=== PATIENT | female | born 1970 | race African-American/Black ===

== ENCOUNTER 2020-07-07 12:46 | Emergency (ER) | payer MEDICAID, SELFPAY ==
[2020-07-07 13:45] VITALS: BP 139/77; PULSE 77; RESP 14; TEMP 37.2; O2SAT 99
[2020-07-07 14:01] VITALS: BP 139/77; PULSE 77; RESP 14; TEMP 37.2; O2SAT 99; BMI 54.6
--- NOTE | 2020-07-07 15:13 | CT_ITS ---
EXAMINATION: CT ABDOMEN AND PELVIS WITH CONTRAST CLINICAL INFORMATION: Umbilical hernia. Assess for strangulation. COMPARISON: CT abdomen noncontrast 11/24/2018 TECHNIQUE: Multidetector volumetric images were obtained from the superior aspect of the liver through the pubic symphysis following administration 100 mL of Omnipaque 350 intravenous contrast. Sagittal and coronal reformatted images were obtained on the technologist's workstation. Oral contrast: No This CT examination was performed using dose optimization techniques as appropriate, variously including the following: *Automated exposure control *Adjustment of mA and/or kV according to patient size (this includes techniques or standardized protocols for targeted exams where dose is matched to indication/reason for exam; i.e. extremities or head) *Use of iterative reconstruction technique DLP: 1144 mGy-cm FINDINGS: There is blurring in the upper abdomen from patient respiratory motion artifact. LUNG BASES: The visualized lung bases are unremarkable. LIVER, GALLBLADDER, AND BILIARY TREE: The liver is normal in size, shape, and attenuation. No focal hepatic lesion or biliary ductal dilatation is present. The gallbladder is unremarkable with no evidence of radiopaque gallstones, gallbladder wall thickening, or obvious pericholecystic inflammatory changes. PANCREAS: Unremarkable. SPLEEN: Unremarkable. ADRENAL GLANDS: Unremarkable. KIDNEYS AND URETERS: The kidneys are normal in size, shape, and attenuation. No hydronephrosis, hydroureter, or calculi seen. No perinephric stranding. BLADDER: Unremarkable. GASTROINTESTINAL TRACT: There is no bowel obstruction or inflammatory changes in the bowel or mesentery. The appendix is normal. There is no ascites or fluid collection. No pneumatosis or free air. ABDOMINAL WALL: Fat-containing umbilical hernia. No inguinal hernia. LYMPH NODES: No lymphadenopathy. VASCULAR: Unremarkable. PELVIC VISCERA: There is again a large lobulated uterus containing heterogeneous fibroids, some with scattered calcifications. Overall uterine size is 21.0 x 10.2 x 19.2 cm. Prior axial dimensions 24.8 x 12.7 cm. The left ovary is unremarkable. There is a incidental dominant follicle left ovary 1.6 x 1.1 cm. Right ovary is not seen with certainty. No pelvic ascites. OSSEOUS STRUCTURES: No acute bony abnormality. Multilevel degenerative changes lower thoracic and lumbosacral spine. CT/CT abdomen pelvis w con IMPRESSION: 1. Small fat-containing umbilical hernia under 3 cm. No bowel herniation. 2. No bowel obstruction or inflammatory changes. Normal appendix. 3. Large lobulated uterus containing heterogeneous fibroids 21 x 10 x 19 cm.
[2020-07-07 15:42] LABS: Glucose Urine UA NEG (NEG); Leukocyte Esterase Urine NEG (NEG); Nitrite Urine NEG (NEG); Specific Gravity - Urine 1.025 (1.005-1.025); Urine Blood NEG (NEG); Urine Ketones NEG (NEG); Urine Protein NEG (NEG-TRACE)
[2020-07-07 15:44] LABS: Appearance Urine CLEAR; Color Urine YELLOW; UACC Culture Trigger NO
[2020-07-07 15:45] LABS: Basophils Absolute Auto 0.1 X10*3/uL (0.0-0.2); Basophils Percent Auto 0.6 % (0-2); Eosinophils Absolute Auto 0.3 X10*3/uL (0.0-0.4); Eosinophils Percent Auto 2.8 % (0-4); Hematocrit 39.6 % (37-47); Hemoglobin 12.7 g/dl (12.0-16.0); Imm Gran Abs Auto 0.02 X10*3/uL (0.00-0.03); Imm Gran Pct Auto 0.2 % (0.0-0.4); Lymphocytes Absolute Auto 3.6 X10*3/uL (1.2-4.9); Lymphocytes Percent Auto 33.7 % (20-40); MANUAL DIFF FLAG NO; Mean Corpuscular HGB Conc 32.1 g/dl (31.0-35.0); Mean Corpuscular Hemoglobin 27.9 pg (27.0-33.0); Mean Corpuscular Volume 86.8 fL (80-98); Mean Platelet Volume 10.6 fL (9.4-12.3); Monocytes Absolute Auto 0.6 X10*3/uL (0.1-1.2); Monocytes Percent Auto 5.9 % (2-11); Neutrophils Absolute Auto 6.1 X10*3/uL (2.0-8.3); Neutrophils Percent Auto 56.8 % (45-73); Platelet Count 395 X10*3/uL (160-400); Red Blood Count 4.56 X10*6/uL (4.20-5.50); Red Cell Distribution Width 13.9 % (11.0-16.0); White Blood Count 10.7 X10*3/uL (4.8-10.8)
[2020-07-07 16:00] LABS: Lactic Acid 1.6 mmol/L (0.5-2.0)
[2020-07-07 16:05] LABS: Lipase 16 U/L (8-78)
[2020-07-07 16:06] LABS: Alanine Aminotransferase 14 U/L (0-31); Albumin Level 3.9 g/dL (3.5-5.0); Alkaline Phosphatase 90 U/L (39-117); Anion Gap 13 (12-20); Aspartate Amino Transferase 14 U/L (5-31); Bilirubin Direct < 0.2 mg/dL (0.0-0.5); Bilirubin Total 0.2 mg/dL (0.0-1.0); Blood Urea Nitrogen 17 mg/dL (9-16); Calcium 9.7 mg/dL (8.4-10.2); Carbon Dioxide 33 mmol/L (22-29); Chloride 100 mmol/L (96-108); Creatinine Clr Calc Pharmacy 130.7; Estimated Glomerular Filt Rate > 60; Glucose Random 92 mg/dL (60-115); Potassium 3.1 mmol/l (3.3-5.1); Sodium 143 mmol/L (135-145); Total Protein 7.1 g/dL (6.5-8.0)
[2020-07-07] MEDS: iohexoL 350 MG/ML 100 ML INFUS..BTL IV (16:25)
--- NOTE | 2020-07-07 16:51 | ED_ITS ---
HPI - Abdominal Pain General Chief Complaint: Abdominal Pain Stated Complaint: Pain in Hernia Time Seen by Provider: 07/07/20 15:04 Source: patient Mode of arrival: ambulatory History of Present Illness HPI narrative: 50-year-old female with a past medical history umbilical hernia presenting to ED complaining of abdominal pain at hernia site since yesterday. Reports pain after cleaning bathroom. Admits she is scheduled for hernia surgery on Saturday here at [facility] [place]. Denies associated nausea /vomiting, change in bowel movements, diarrhea/constipation, fever, chills, dysuria /hematuria MD elicited complaint: abdominal pain Related Data Allergies Allergy/AdvReac Type Severity Reaction Status Date / Time No Known Allergies Allergy Unverified 06/02/20 15:57 Review of Systems Review of Systems Constitutional: No Weight loss, No Fever Cardiovascular: No Chest Pain, No SOB Respiratory: No Cough, No Sputum, No Dyspnea Gastrointestinal: No Nausea, No Vomiting, No Diarrhea, No Constipation, +Abdominal pain Genitourinary: No irregular bleeding, No Dysuria, No Urinary Frequency, No Hematuria,No Urinary Flow Changes Musculoskeletal: No joint pain, No Myalgias, No Joint Swelling Skin: No Skin Lesions, No rash Physical Exam Vital Signs: Vital Signs: Vital Signs Temp Pulse Resp BP Pulse Ox 07/07/20 14:01 98.9 F 77 14 139/77 99 07/07/20 13:45 98.9 F 77 14 139/77 99 Body Mass Index 54.6 Const: General: cooperative and healthy appearing Orientation/consciousness: patient oriented x3 Limitations: no limitations HENMT: Head: Yes normal to inspection Ears: hearing grossly normal bilaterally General nose exam: Normal external nose present Face and sinus: Yes normal facial exam Eyes: General: appearance normal, both eyes and all related structures EOM: EOMs intact bilaterally Neck: Neck: Yes normal visual inspection Resp: Effort & Inspection: normal respiratory effort Cardio: Rate: regular rate GI: Inspection: Yes normal to inspection Palpation (GI): Soft to palpation, Tenderness to palpation present (GI) periumbilically, no guarding and Hernia present umbilical (reducible) Skin: Rashes: no rashes Wounds: no wounds Neuro: General: patient oriented x3 Gait exam (Neuro): Normal gait present Extrem: General: Yes normal to inspection Course Course Course Narrative: -5117-- potassium 3.1> p.o. repletion ordered, labs otherwise unremarkable, lactate negative, UA negative -1710-- CT with small fat containing umbilical hernia under 3 cm. No bowel herniation. No bowel obstruction or inflammatory changes. Large lobulated uterus containing fibroids - on re-evaluation patient reports symptomatic improvement after I reduced hernia on exam. labs/imaging results discussed with patient with community center worker including worrisome signs and symptoms and very strict return precautions. Patient verbalized understanding feel safe for discharge home MDM - Abdominal Pain MDM Narrative Medical decision making narrative: 50-year-old female with a past medical history umbilical hernia presenting to ED complaining of abdominal pain at hernia site since yesterday. On exam VS as, NAD/ nontoxic appearing, abdomen soft umbilical hernia appreciated in reducible on exam /painful. Concern for incarcerated / strangulated hernia vs SBO. lower concern for diverticulitis/ appendicitis or other infectious etiology Plan: Labs, UA, CT AP, IVF/reassess Lab Data Result diagrams: 07/07/20 15:38 07/07/20 15:38 Labs: Lab Results 07/07/20 07/07/20 07/07/20 Range/Units 15:30 15:38 15:38 WBC 10.7 (4.8-10.8) X10*3/uL RBC 4.56 (4.20-5.50) X10*6/uL Hgb 12.7 (12.0-16.0) g/dl Hct 39.6 (37-47) % MCV 86.8 (80-98) fL MCH 27.9 (27.0-33.0) pg MCHC 32.1 (31.0-35.0) g/dl RDW 13.9 (11.0-16.0) % Plt Count 395 (160-400) X10*3/uL MPV 10.6 (9.4-12.3) fL Immature Gran % (Auto) 0.2 (0.0-0.4) % Neut % (Auto) 56.8 (45-73) % Lymph % (Auto) 33.7 (20-40) % [place] % (Auto) 5.9 (2-11) % Eos % (Auto) 2.8 (0-4) % Baso % (Auto) 0.6 (0-2) % Lymph # (Auto) 3.6 (1.2-4.9) X10*3/uL [place] # (Auto) 0.6 (0.1-1.2) X10*3/uL Eos # (Auto) 0.3 (0.0-0.4) X10*3/uL Baso # (Auto) 0.1 (0.0-0.2) X10*3/uL Abs Immat Gran (auto) 0.02 (0.00-0.03) X10*3/uL Absolute Neuts (auto) 6.1 (2.0-8.3) X10*3/uL Absolute Nucleated RBC 0.000 (0.0-0.012) X10*3/uL Nucleated RBC % (auto) 0.0 (0.0-0.2) /100WBC Hold Blue Top Sodium 143 (135-145) mmol/L Potassium 3.1 L (3.3-5.1) mmol/l Chloride 100 (96-108) mmol/L Carbon Dioxide 33 H (22-29) mmol/L Anion Gap 13 (12-20) BUN 17 H (9-16) mg/dL Creatinine 0.77 (0.5-1.4) mg/dL Estim Creat Clear Calc 130.7 Estimated GFR > 60 Random Glucose 92 (60-115) mg/dL Lactic Acid (0.5-2.0) mmol/L Calcium 9.7 (8.4-10.2) mg/dL Total Bilirubin 0.2 (0.0-1.0) mg/dL Direct Bilirubin < 0.2 (0.0-0.5) mg/dL AST 14 (5-31) U/L ALT 14 (0-31) U/L Alkaline Phosphatase 90 (39-117) U/L Total Protein 7.1 (6.5-8.0) g/dL Albumin 3.9 (3.5-5.0) g/dL Lipase (8-78) U/L Urine Color YELLOW Urine Appearance CLEAR Urine pH 6.0 (5.0-8.0) Ur Specific [place] 1.025 (1.005-1.025) Urine Protein NEG (NEG-TRACE) MG/DL Urine Glucose (UA) NEG (NEG) MG/DL Urine Ketones NEG (NEG) MG/DL Urine Blood NEG (NEG) Urine Nitrite NEG (NEG) Ur Leukocyte Esterase NEG (NEG) 07/07/20 07/07/20 07/07/20 Range/Units 15:38 15:38 15:38 WBC (4.8-10.8) X10*3/uL RBC (4.20-5.50) X10*6/uL Hgb (12.0-16.0) g/dl Hct (37-47) % MCV (80-98) fL MCH (27.0-33.0) pg MCHC (31.0-35.0) g/dl RDW (11.0-16.0) % Plt Count (160-400) X10*3/uL MPV (9.4-12.3) fL Immature Gran % (Auto) (0.0-0.4) % Neut % (Auto) (45-73) % Lymph % (Auto) (20-40) % [place] % (Auto) (2-11) % Eos % (Auto) (0-4) % Baso % (Auto) (0-2) % Lymph # (Auto) (1.2-4.9) X10*3/uL [place] # (Auto) (0.1-1.2) X10*3/uL Eos # (Auto) (0.0-0.4) X10*3/uL Baso # (Auto) (0.0-0.2) X10*3/uL Abs Immat Gran (auto) (0.00-0.03) X10*3/uL Absolute Neuts (auto) (2.0-8.3) X10*3/uL Absolute Nucleated RBC (0.0-0.012) X10*3/uL Nucleated RBC % (auto) (0.0-0.2) /100WBC Hold Blue Top SEE NOTE Sodium (135-145) mmol/L Potassium (3.3-5.1) mmol/l Chloride (96-108) mmol/L Carbon Dioxide (22-29) mmol/L Anion Gap (12-20) BUN (9-16) mg/dL Creatinine (0.5-1.4) mg/dL Estim Creat Clear Calc Estimated GFR Random Glucose (60-115) mg/dL Lactic Acid 1.6 (0.5-2.0) mmol/L Calcium (8.4-10.2) mg/dL Total Bilirubin (0.0-1.0) mg/dL Direct Bilirubin (0.0-0.5) mg/dL AST (5-31) U/L ALT (0-31) U/L Alkaline Phosphatase (39-117) U/L Total Protein (6.5-8.0) g/dL Albumin (3.5-5.0) g/dL Lipase 16 (8-78) U/L Urine Color Urine Appearance Urine pH (5.0-8.0) Ur Specific [place] (1.005-1.025) Urine Protein (NEG-TRACE) MG/DL Urine Glucose (UA) (NEG) MG/DL Urine Ketones (NEG) MG/DL Urine Blood (NEG) Urine Nitrite (NEG) Ur Leukocyte Esterase (NEG) Discharge Plan Discharge Clinical Impression: Hernia, umbilical Patient Disposition: Home, Self-Care Instructions: Umbilical Hernia (ED) Additional Instructions: Your blood work was reassuring today in the ED Your CT scan showed a fat containing umbilical hernia, no evidence of obstruction. You also have uterine fibroids. Refrain from any heavy lifting or straining If you feel the hernia is painful laid down and tried to push it back in, if your unable to push lump back in, your nausea/vomiting, pain is severe return to the ED immediately Follow up with her appointment on Saturday to have her surgery Referrals: Name,MD Eusebio [Primary Care Provider] - 2 days Print Language: Lithuanian COUNTS INCLUDE 234 BEDS AT THE [facility] Past Medical History Attestation statement: The following information was validated with the patient. Source: nursing notes reviewed Social History Social History Smoking Status: Current some day smoker Advance Directives: Yes Advance Directives Information Provided: No Advance Directives on File: No
[2020-07-07 17:27] VITALS: BP 116/53; PULSE 65; RESP 20; TEMP 36.6; O2SAT 99
== END 2020-07-07 17:40 | disposition home or self-care (01) ==
PROVIDERS: Physician Assistant; Emergency Provider Emergency Medicine; PCP Internal Medicine Geriatric Medicine
DX: K42.9 Umbilical hernia without obstruction or gangrene (principal)
CPT/HCPCS: 36415; 74177; 80048; 80076; 81003; 83605; 83690; 85025; 96361; 96374; 99284

== ENCOUNTER 2020-07-11 06:01 | Day surgery (SDC) | payer MEDICAID, SELFPAY ==
--- NOTE | 2020-07-08 08:29 | HO.ANESPROP2 ---
Documented by User: Ban Hare 07/08/20 08:34 HPI - Anesthesia Eval Consult details Narrative: 50yo F for umbilical hernia repair [facility] Past Medical History Medical History Acid reflux Anxiety Cardiomyopathy CHF (congestive heart failure) Depression Dizziness Heartburn Hernia, umbilical HTN (hypertension) Knee pain Long QT interval Morbid obesity CHACORTA on CPAP Panic attack Social History Social History Smoking Status: Never smoker Use of substances other than those prescribed or required for medical reasons: No Advance Directives: No Advance Directives Information Provided: Yes Advance Directives on File: No Meds Allergies Allergy/AdvReac Type Severity Reaction Status Date / Time No Known Allergies Allergy Unverified 06/02/20 15:57 Home Medications Medication Instructions Recorded Confirmed Type atorvastatin 20 mg PO DAILY 07/08/20 07/08/20 History carvedilol [Coreg] 25 mg PO BID 07/08/20 07/08/20 History clonazepam 0.5 mg PO DAILY 07/08/20 07/08/20 History hydrochlorothiazide 25 mg PO DAILY 07/08/20 07/08/20 History losartan-hydrochlorothiazide 1 tab PO DAILY 07/08/20 07/08/20 History melatonin 20 mg PO DAILY 07/08/20 07/08/20 History omeprazole 20 mg PO BID 07/08/20 07/08/20 History Exam Exam Date and Time: July 08, 2020 0829 Pertinent Lab Results Pertinent Lab Results: Laboratory Tests 07/07/20 07/07/20 15:38 15:38 WBC 10.7 Hgb 12.7 Hct 39.6 Plt Count 395 Sodium 143 Potassium 3.1 L Chloride 100 Carbon Dioxide 33 H BUN 17 H Creatinine 0.77 PO repletion of K+ in ED 07/07/20 Assessment and Plan Assessment Anesthesia Assessment: Chart Reviewed Documented by User: Inocencia Griffin 07/11/20 07:24 [facility] Past Medical History Medical History Acid reflux Anxiety Cardiomyopathy CHF (congestive heart failure) Depression Dizziness Heartburn Hernia, umbilical HTN (hypertension) Knee pain Long QT interval Morbid obesity CHACORTA on CPAP Panic attack Social History Social History Smoking Status: Never smoker Use of substances other than those prescribed or required for medical reasons: No Advance Directives: No Advance Directives Information Provided: Yes Advance Directives on File: No Meds Allergies Allergy/AdvReac Type Severity Reaction Status Date / Time No Known Allergies Allergy Unverified 06/02/20 15:57 Home Medications Medication Instructions Recorded Confirmed Type atorvastatin 20 mg PO DAILY 07/08/20 07/08/20 History carvedilol [Coreg] 25 mg PO BID 07/08/20 07/08/20 History clonazepam 0.5 mg PO DAILY 07/08/20 07/08/20 History hydrochlorothiazide 25 mg PO DAILY 07/08/20 07/08/20 History losartan-hydrochlorothiazide 1 tab PO DAILY 07/08/20 07/08/20 History melatonin 20 mg PO DAILY 07/08/20 07/08/20 History omeprazole 20 mg PO BID 07/08/20 07/08/20 History Exam Airway Mallampati Class: II TM Dist: >3cm Neck ROM: Full Assessment and Plan Assessment Anesthesia Assessment: Anesthesia Plan Discussed and Chart Reviewed Final Anesthetic Review NPO: Yes ASA Class: III Final Preanesthetic Review: No Changes in Pt Med Stat, Meds/Allgs Chart Reviewed, Consent Obtained/Reviewed and Anes Risks/Benef Reviewed Patient Risk: Intermediate Procedure Risk: Low Assessment/Block/Sedation in SS: Assess/Block/Sedation-SS Anesthetic Plan Anesthetic Plan: GA Disposition: Standard PACU
[2020-07-08 15:14] VITALS: BMI 53.8
[2020-07-11 06:31] VITALS: BP 125/60; PULSE 78; RESP 18; TEMP 36.6; O2SAT 99
[2020-07-11 06:43] LABS: UPreg QC Valid YES; Urine Pregnancy NEGATIVE (NEGATIVE)
[2020-07-11] MEDS: ceFAZolin Sodium/Dextrose,Iso 2 GM/50 ML PIGGYBACK IV (06:54)
[2020-07-11] MEDS: Lactated Ringers 1,000 ML 100 ML IVCONT (06:54)
--- NOTE | 2020-07-11 07:27 | MHC.SHP ---
Pre-Procedural Eval Section A The patient is an INPATIENT: No Changes since office visit: Yes Patient answered all questions; No Cold of Flu in the past 2 weeks, No New Medical Problems and No Changes in Medication The History & Physical has been completed within 30 days and I have reviewed it.: Yes Section B Chief Complaint: Umbilical Hernia Allergies: Allergies Allergy/AdvReac Type Severity Reaction Status Date / Time No Known Allergies Allergy Unverified 06/02/20 15:57 Plan Diagnosis/Plan: Unchanged Patient has been examined and remains a candidate for the planned procedure
--- NOTE | 2020-07-11 08:24 | PM.OP ---
Brief Operative Note Date of procedure: 07/11/20 Pre-op diagnosis: Umbilical hernia Post-op diagnosis: same Procedure: Repair of umbilical hernia without mesh Implants: none Surgeon: Daryl Barab MD Anesthesia: MAC Agricultural Appraiser: Aishwarya Shah Estimated blood loss (mL): 10 Pathology: none sent Condition: stable Disposition: PACU
--- NOTE | 2020-07-11 08:29 | P.OP_ITS ---
Operative Note Operative Note Narrative: Date of procedure: 07/11/20 Pre-op diagnosis: Umbilical hernia Post-op diagnosis: same Procedure: Repair of umbilical hernia without mesh Indications for procedure: Patient is a 50-year-old female presenting with a painful lump in the umbilicus and just above the umbilicus. The lump increases in size with lifting and straining and reduces with light pressure. Operative findings: Patient was found to have a hernia located just above the umbilicus measuring approximately 1 cm in diameter. At the patient's request this was repaired without mesh. A 2nd smaller hernia was noted at the umbilicus measuring approximately 0.25 cm also closed primarily without mesh Procedure details patient was brought to the OR and placed in a supine position. After administering general anesthesia the patient's abdomen was prepped with ChloraPrep and draped in a sterile fashion. A surgical time-out was called and the consent confirmed. Patient received preoperative antibiotics and Venodyne boots were in place. Local anesthesia consisting of 1% lidocaine mixed with 0.75% Sensorcaine with epinephrine was infiltrated around the umbilicus. A curvilinear incision was made above the umbilicus oriented transversely. This was carried out through subcutaneous tissue up to the hernia sac. Hernia sac was then sharply dissected from the surrounding subcutaneous tissue. The sac was dissected down to the fascial edge. Sac was reduced and the fascial edges further defined. Dissection was continued down at the umbilicus were a 2nd small umbilical hernia was identified as well. This contained only fatty tissue. The margin this fascia was also identified. Fascial edges were then reapproximated using [id number] 1. Tycron sutures to close both the umbilical and supraumbilical hernia. Hemostasis was assured using electrocautery. Wounds were then irrigated with saline solution and suctioned dry. Dermis was then reapproximated using interrupted 3 0 Polysorb sutures. Skin was closed using a running subcuticular 4 0 Polysorb suture. Steri-Strips 2 x 2 gauze and Tegaderm were then applied. The patient tolerated the procedure well. Sponge instrument needle counts reported as correct. The patient was transferred to PACU in stable condition. Implants: none Surgeon: Daryl Barba MD Anesthesia: MAC Market Asset Protection Manager: Aishwarya Shah Estimated blood loss (mL): 10 Pathology: none sent Condition: stable Disposition: PACU
[2020-07-11 08:33] VITALS: BP 127/68; PULSE 76; RESP 16; TEMP 36.3; O2SAT 97
[2020-07-11 08:48] VITALS: BP 126/80; PULSE 66; RESP 20; TEMP 36.6; O2SAT 99
--- NOTE | 2020-07-11 09:22 | HO.POSTANES ---
Post Anesthesia Evaluation Post Anesthesia Evaluation Vital Signs: Vital Signs Temp Pulse Resp BP Pulse Ox 07/11/20 08:48 98 F 66 20 126/80 99 07/11/20 08:33 97.4 F 76 16 127/68 97 07/11/20 06:31 97.9 F 78 18 125/60 99 Anesthesia: Monitored Mental Status: Awake Pain Control: Satisfactory Nausea/Vomiting: None Hydration: Adequate Anesthesia-Related Issues: No Anes. Related Issues
== END 2020-07-11 10:02 | disposition home or self-care (01) ==
PROVIDERS: Nurse Practitioner; PCP Internal Medicine Geriatric Medicine; Visit Provider Surgery
PROC: 0WQF4ZZ Repair Abdominal Wall, Percutaneous Endoscopic Approach (ICD-10-PCS; CPT 49585; principal; 2020-07-11 07:30)
DX: K42.9 Umbilical hernia without obstruction or gangrene (principal); K21.9 Gastro-esophageal reflux disease without esophagitis; I11.0 Hypertensive heart disease with heart failure; I50.9 Heart failure, unspecified; G47.33 Obstructive sleep apnea (adult) (pediatric); E66.01 Morbid (severe) obesity due to excess calories; Z79.899 Other long term (current) drug therapy
CPT/HCPCS: 49585; 81025; J0690; J1100; J2250; J2405; J3010

== ENCOUNTER → 2020-07-19 10:35 | Outpatient (BNVA) | payer MEDICAID, SELFPAY | PROVIDERS: PCP Internal Medicine Geriatric Medicine; Visit Provider Surgery | DX: Z48.815 Encounter for surgical aftercare following surgery on the digestive system (principal) | CPT/HCPCS: 99212 ==

== ENCOUNTER 2020-09-02 07:24 | Emergency (ER) | payer MEDICAID, SELFPAY ==
[2020-09-02 07:35] VITALS: BP 136/69; PULSE 82; RESP 18; TEMP 36.8; O2SAT 99; BMI 54.1
--- NOTE | 2020-09-02 08:45 | ED.BACK ---
HPI - Back Pain/Injury General Chief Complaint: Back Pain/Injury Stated Complaint: back pain Time Seen by Provider: 09/02/20 08:18 Source: patient Mode of arrival: ambulatory Limitations: no limitations History of Present Illness HPI Narrative: 50-year-old female presenting to the ED with complaints of persistent intermittent left-sided back pain since she was seen here on 07/07/2020 after she was cleaning her house and lifting mattresses. Reports she was sent home with symptomatic treatment which relieved her pain. Denies any other symptoms complaints or concerns at this time. Denies any new injuries. Related Data Home Medications Medication Instructions Recorded Confirmed atorvastatin 20 mg PO DAILY 07/08/20 07/19/20 carvedilol [Coreg] 25 mg PO BID 07/08/20 07/19/20 clonazepam 0.5 mg PO DAILY 07/08/20 07/19/20 hydrochlorothiazide 25 mg PO DAILY 07/08/20 07/19/20 losartan-hydrochlorothiazide 1 tab PO DAILY 07/08/20 07/19/20 melatonin 20 mg PO DAILY 07/08/20 07/19/20 omeprazole 20 mg PO BID 07/08/20 07/19/20 Previous Rx's Medication Instructions Recorded oxycodone 5 mg PO Q6H PRN #20 tab 07/11/20 cyclobenzaprine 10 mg PO TID PRN #10 tab 09/02/20 lidocaine 1 patch TOPICAL DAILY #15 ea 09/02/20 naproxen 500 mg PO BID PRN #10 tab 09/02/20 oxycodone-acetaminophen [Percocet] 1 tab PO Q6H PRN #10 tab 09/02/20 Allergies Allergy/AdvReac Type Severity Reaction Status Date / Time No Known Allergies Allergy Unverified 06/02/20 15:57 Review of Systems Review of Systems: Constitutional : No trauma, No Weight loss, No Fever, No Chills, ENT/Mouth : No Hearing loss, No Ear Pain, No Nasal Congestion, No Sinus Pain, No Hoarseness, No sore throat, No Rhinorrhea, No Swallowing Difficulty Cardiovascular : No Chest Pain, No SOB Respiratory : No Cough, No Dyspnea Gastrointestinal : No Nausea, No Vomiting, No Diarrhea, No abdominal Pain, No Hematochezia, No Melena Genitourinary : No Dysuria, No Urinary Frequency, No Hematuria, No Urinary or Bowel Incontinence/retention Musculoskeletal : + Back pain, No neck pain, No joint stiffness, No joint swelling Skin : No Skin Lesions, No rash or signs of infection Neuro : No Weakness, No radiation, No Numbness, No Paresthesias, No headache, no loss of bowel or bladder incontinence, no saddle anesthesia Denies history of IV drug usage. Yes all other systems are reviewed and are negative PMFSH Past Medical History Attestation statement: The following information was validated with the patient. Medical History Acid reflux Anxiety Cardiomyopathy CHF (congestive heart failure) Depression Dizziness Heartburn Hernia, umbilical HTN (hypertension) Knee pain Long QT interval Morbid obesity CHACORTA on CPAP Panic attack Surgical History H/O ventral hernia repair Social History Social History Alcohol intake: never Smoking Status: Never smoker Smoked in Last 30 Days: No Use of substances other than those prescribed or required for medical reasons: No Advance Directives: No Advance Directives Information Provided: Yes Physical Exam Vital Signs: Vital Signs: Last Vital Signs Temp 98.2 F 09/02/20 07:35 Pulse 82 09/02/20 07:35 Resp 18 09/02/20 07:35 BP 136/69 09/02/20 07:35 Pulse Ox 99 09/02/20 07:35 Body Mass Index 54.1 vital signs have been reviewed as normal and appeared to be correct. Blood pressure normal. Heart rate normal. Respiration rate normal. Temperature normal. Oxygen saturation normal. Appearance: Alert. Oriented X3. No acute distress. Head: Normal external exam. Normocephalic. Atraumatic. No Granados signs noted. No raccoon eyes noted Eyes: PERRLA. EOMI. Conjunctiva and sclera normal. Eyelids normal. ENT: EAC normal. TM's Normal. Pharynx normal. Uvula midline. Moist mucous membranes. No trismus noted. No drooling noted. No muffled voice noted. Neck: Normal inspection. Neck supple. FROM. No adenopathy. Thyroid Normal. No meningeal signs. No neck mass noted. CVS: Normal heart rate and rhythm. Heart sound normal. No murmurs noted. Pulses normal throughout. Respiratory: No respiratory distress. Painless inspiration. Breath sounds normal. No wheezes/rales/rhonchi noted. Chest nontender. No accessory muscle usage noted or decreased air movement noted. Abdomen: Soft and nontender. Bowel sounds normal in all 4 quadrants. No distention noted. No organomegaly noted. No visible injury noted. Back: No CVA tenderness. Full range of motion noted. No obvious deformities, or edema. Mild para-spinal muscular tenderness from lumbar region to coccyx. Full ROM in back and lower extremities. 5/5 strength hip extension/flexion, abduction, adduction. Mild Lumbar pain with hip flexion against resistance. Straight leg raise test negative on right; Straight leg raise test negative on left; Reflexes normal ankle and knee bilaterally; EHL motor strength normal bilaterally Skin: Skin warm and dry. Normal skin color. Normal skin turgor. No rashes/lesions/lacerations noted. Extremities: No lower extremity edema. Extremities exhibit normal range of motion. Extremities nontender. Neuro: Oriented X 3. No motor deficit. No sensory deficit. Reflexes normal. Course Course Course Narrative: Pt c likely muscular pain, but could be herniated disc. Neuro exam shows no deficits. Not c/w AAA/epidural abscess/dissection.No high risk Hx (Incont, fever, immunosupp, recent surgery/LP, coag, signif trauma, wt loss, puls mass, hx/o Ca, TB, or IVDU) to warrant MRI/CT today. Not c/w Pyelo/UTI/kidney stone/spinal fx. Not cauda equina syndrome. Imaging not currently indicated. DC c meds and f/u. MDM - Back Pain/Injury Medical Records Attestation: I reviewed the patient's medical records. Lab Data Attestation: I reviewed the patient's lab results. Discharge Plan Discharge Clinical Impression: Strain of lumbar region Patient Disposition: Home, Self-Care Instructions: Acute Low Back Pain (ED), Lower Back Exercises (ED) Prescriptions: New cyclobenzaprine 10 mg tablet 10 mg PO TID PRN (Reason: muscle spasm) Qty: 10 RF: 0 oxycodone-acetaminophen [Percocet] 5-325 mg tablet 1 tab PO Q6H PRN (Reason: pain) Qty: 10 RF: 0 naproxen 500 mg tablet 500 mg PO BID PRN (Reason: pain) Qty: 10 RF: 0 lidocaine 5 % adhesive patch,medicated 1 patch topical DAILY Qty: 15 RF: 0 No Action carvedilol [Coreg] 25 mg Tablet 25 mg PO BID RF: 0 atorvastatin 20 mg Tablet 20 mg PO DAILY RF: 0 clonazepam 0.5 mg Tablet 0.5 mg PO DAILY RF: 0 losartan-hydrochlorothiazide 100-25 mg Tablet 1 tab PO DAILY RF: 0 omeprazole 20 mg Capsule,Delayed Release(Dr/Ec) 20 mg PO BID RF: 0 hydrochlorothiazide 25 mg Tablet 25 mg PO DAILY RF: 0 melatonin 10 mg Capsule 20 mg PO DAILY RF: 0 oxycodone 5 mg tablet 5 mg PO Q6H PRN (Reason: pain) Qty: 20 RF: 0 Referrals: Name,MD Eusebio [Primary Care Provider] - 2 days Print Language: Congolese
== END 2020-09-02 09:36 | disposition home or self-care (01) ==
PROVIDERS: Emergency Provider Emergency Medicine Emergency Medical Services; PCP Internal Medicine Geriatric Medicine
DX: S39.012A Strain of muscle, fascia and tendon of lower back, initial encounter (principal); X50.0XXA Overexertion from strenuous movement or load, initial encounter; I10 Essential (primary) hypertension; Y93.E9 Activity, other interior property and clothing maintenance; Y92.013 Bedroom of single-family (private) house as the place of occurrence of the external cause; Y99.9 Unspecified external cause status
CPT/HCPCS: 99283

== ENCOUNTER → 2020-09-13 12:39 | Outpatient (BNVA) | payer MEDICAID, SELFPAY | PROVIDERS: PCP Internal Medicine Geriatric Medicine; Visit Provider Surgery | DX: Z09 Encounter for follow-up examination after completed treatment for conditions other than malignant neoplasm (principal); Z87.19 Personal history of other diseases of the digestive system | CPT/HCPCS: 99212 ==

== ENCOUNTER 2020-10-17 06:08 | Outpatient (REF) | payer MEDICAID, SELFPAY ==
[2020-10-17 07:16] LABS: Anion Gap 11 (12-20); Blood Urea Nitrogen 14 mg/dL (9-16); Calcium 8.7 mg/dL (8.4-10.2); Carbon Dioxide 30 mmol/L (22-29); Chloride 102 mmol/L (96-108); Estimated Glomerular Filt Rate > 60; Glucose Fasting 104 mg/dL (60-99); Potassium 3.4 mmol/L (3.3-5.1); Sodium 140 mmol/L (135-145)
[2020-10-17 07:50] LABS: Creatinine Urine 223.45 mg/dL; Microalbum/Creatinine Ratio Ur 58.1 ug/mg cr
== END 2020-10-17 06:09 | disposition home or self-care (01) ==
LOC: HO.LAB 06:08
PROVIDERS: Visit Provider Internal Medicine Geriatric Medicine
DX: I10 Essential (primary) hypertension (principal)
CPT/HCPCS: 36415; 80048; 82043

== ENCOUNTER 2020-11-03 19:06 | Emergency (ER) | payer MEDICAID, SELFPAY ==
[2020-11-03 21:01] VITALS: BP 150/84; PULSE 86; RESP 18; TEMP 36.7; O2SAT 98; BMI 39.4
--- NOTE | 2020-11-03 22:24 | ED_ITS ---
HPI - General Adult General Chief complaint: GI Bleed Stated complaint: Rectal Bleeding Time Seen by Provider: 11/03/20 22:04 Source: patient Mode of arrival: ambulatory Limitations: language barrier (Patient speaks Argentine, I use the hourly sign language interpreter to obtain information from her.) History of Present Illness HPI narrative: 50-year-old female who presents emergency department for evaluation lower GI bleed. The patient states that she has been constipated. She states that yesterday after moving her bowels, she wiped herself with toilet paper and noted a small amount of red blood on the toilet paper. She states that it happened again this morning and this afternoon and this concerned her so she came to the emergency department for evaluation. She states she has been constipated but has been moving her bowels daily. She denied abdominal pain, lightheadedness, dizziness or fatigue. She states that she has never noted blood in the stool but only on the toilet paper. She states this is the 1st epi sode of noting blood per rectum. The patient does have a history of lower back pain and does take naproxen and Flexeril for her pain. She has not had any nausea vomiting diarrhea, bloody stools or dark tarry stools. Related Data Home Medications Medication Instructions Recorded Confirmed atorvastatin 20 mg PO DAILY 07/08/20 07/19/20 carvedilol [Coreg] 25 mg PO BID 07/08/20 07/19/20 clonazepam 0.5 mg PO DAILY 07/08/20 07/19/20 hydrochlorothiazide 25 mg PO DAILY 07/08/20 07/19/20 losartan-hydrochlorothiazide 1 tab PO DAILY 07/08/20 07/19/20 melatonin 20 mg PO DAILY 07/08/20 07/19/20 omeprazole 20 mg PO BID 07/08/20 07/19/20 Previous Rx's Medication Instructions Recorded cyclobenzaprine 10 mg PO TID PRN #10 tab 09/02/20 lidocaine 1 patch TOPICAL DAILY #15 ea 09/02/20 naproxen 500 mg PO BID PRN #10 tab 09/02/20 oxycodone-acetaminophen [Percocet] 1 tab PO Q6H PRN #10 tab 09/02/20 Allergies Allergy/AdvReac Type Severity Reaction Status Date / Time No Known Allergies Allergy Verified 11/03/20 21:01 Review of Systems Review of Systems: Yes all other systems are reviewed and are negative Neurologic: Reports Abnormal speech present [facility] Past Medical History [facility] Narrative: The patient smokes cigarettes daily, she smoked for 22 years, she drinks alcohol very rarely and only on special occasions. She denies drug use. Medical History Acid reflux Anxiety Cardiomyopathy CHF (congestive heart failure) Depression Dizziness Heartburn Hernia, umbilical HTN (hypertension) Knee pain Long QT interval Morbid obesity CHACORTA on CPAP Panic attack Surgical History H/O ventral hernia repair Social History Social History Alcohol intake: never Smoking Status: Never smoker Smoked in Last 30 Days: No Any prior treatment program specific to substance use: No Advance Directives: No Advance Directives Information Provided: No Physical Exam Vital Signs: Vital Signs: Last Vital Signs Temp 97.4 F 11/03/20 23:15 Pulse 80 11/03/20 23:15 Resp 16 11/03/20 23:15 BP 144/78 H 11/03/20 23:15 Pulse Ox 99 11/03/20 23:15 Body Mass Index 39.4 Const: General: other (Very pleasant and cooperative, in no distress) Nutritional Appearance: obese Orientation/consciousness: oriented to person and oriented to place Limitations: no limitations HENMT: Head: Yes normal to inspection, Yes normocephalic and Yes atraumatic Ears: external ears normal General nose exam: Normal external nose present Face and sinus: Yes normal facial exam Mouth: Normal oral and palatal mucosa present Throat: Yes posterior oropharynx normal Eyes: Periorbital: periorbital findings normal Eyelids: Yes eyelids normal Conjunctivae: conjunctivae normal Sclerae: sclerae normal Corneas: corneas normal Pupils: Equal, round and reactive pupils present Direct Ophthalmoscopy: normal light reflex Neck: Neck: Yes full ROM, Yes no lymphadenopathy, Yes no meningeal signs, Yes trachea midline and Yes supple Chest: Chest palpation & inspection: normal inspection of the chest and normal palpation of entire chest wall Resp: Effort & Inspection: normal respiratory effort and able to speak in complete sentences Auscultation: clear to auscultation bilaterally Cardio: Rate: regular rate Rhythm: regular rhythm Heart sounds: S1 normal heart sound present, S2 normal heart sound present and no murmurs GI: Inspection: Yes normal to inspection Palpation (GI): Soft to palpation, nontender, no guarding, not rigid and No hepatosplenomegaly present Rectal Exam - Female: visual inspection normal, normal sphincter tone and heme positive stool (Brown stool, Hemoccult positive) : General: Yes no CVA tenderness Back/Spine/Pelvis: Back: no CVA tenderness Cervical Spine: normal cervical lordosis Thoracic/Lumbar Spine: thoracic and lumbar spine normal to inspection Skin: Lesions: no lesions Rashes: no rashes Wounds: no wounds Neuro: General: oriented to person, oriented to place and no meningeal signs Cranial nerves: Yes Equal, round and reactive pupils present Cognition (Neuro): normal cognition Speech: Abnormal speech present Motor exam (neuro): 5/5 motor strength present throughout Extrem: General: Yes normal to inspection and Yes full ROM Psych: Appearance: well kempt Mental Status: mental status grossly normal Speech and movement: Normal speech and movement present Affect: normal affect Attitude: cooperative Thought process: Normal thought process present Thought content: Normal thought content present Course Course Course Narrative: 50-year-old female who presents emergency department for evaluation of blood on the toilet paper after moving her bowels, since yesterday. The patient's physical examination revealed no abdominal pain. Rectal exam revealed no obvious external hemorrhoids or source of bleeding. The patient's stool was brown but it was Hemoccult positive. I did order laboratory evaluation on this patient. 0005: The patient's laboratory evaluation was unremarkable with a normal H&H 11 and 39.5. The patient's presentation is consistent with a lower GI bleed as discussed above. The patient is constipated as may be contributing to the bleeding. The patient was started on a bowel regimen Metamucil daily, Colace twice a day and Senokot for 3 days if she does not have a bowel movement every 4 days. She was also advised to use preparation H suppositories. She was given verbal and printed instructions and discharged home. Medical Decision Making Lab Data Result diagrams: 11/03/20 22:32 11/03/20 22:32 Labs: Lab Results 11/03/20 11/03/20 Range/Units 22:32 22:32 WBC 13.5 H (4.8-10.8) X10*3/uL RBC 4.72 (4.20-5.50) X10*6/uL Hgb 13.1 (12.0-16.0) g/dl Hct 39.9 (37-47) % MCV 84.5 (80-98) fL MCH 27.8 (27.0-33.0) pg MCHC 32.8 (31.0-35.0) g/dl RDW 13.3 (11.0-16.0) % Plt Count 431 H (160-400) X10*3/uL MPV 10.7 (9.4-12.3) fL Immature Gran % (Auto) 0.4 (0.0-0.4) % Neut % (Auto) 56.3 (45-73) % Lymph % (Auto) 33.0 (20-40) % Hamlin % (Auto) 7.3 (2-11) % Eos % (Auto) 2.4 (0-4) % Baso % (Auto) 0.6 (0-2) % Lymph # (Auto) 4.5 (1.2-4.9) X10*3/uL Hamlin # (Auto) 1.0 (0.1-1.2) X10*3/uL Eos # (Auto) 0.3 (0.0-0.4) X10*3/uL Baso # (Auto) 0.1 (0.0-0.2) X10*3/uL Abs Immat Gran (auto) 0.05 H (0.00-0.03) X10*3/uL Absolute Neuts (auto) 7.6 (2.0-8.3) X10*3/uL Absolute Nucleated RBC 0.000 (0.0-0.012) X10*3/uL Nucleated RBC % (auto) 0.0 (0.0-0.2) /100WBC Sodium 139 (135-145) mmol/L Potassium 3.3 (3.3-5.1) mmol/L Chloride 101 (96-108) mmol/L Carbon Dioxide 29 (22-29) mmol/L Anion Gap 12 (12-20) BUN 18 H (9-16) mg/dL Creatinine 0.74 (0.5-1.4) mg/dL Estim Creat Clear Calc 108.2 Estimated GFR > 60 Random Glucose 110 (60-115) mg/dL Calcium 9.6 D (8.4-10.2) mg/dL Total Bilirubin < 0.2 (0.0-1.0) mg/dL AST 16 (5-31) U/L ALT 12 (0-31) U/L Alkaline Phosphatase 117 D (39-117) U/L Total Protein 7.1 (6.5-8.0) g/dL Albumin 3.9 (3.5-5.0) g/dL Discharge Plan Discharge Clinical Impression: Lower gastrointestinal hemorrhage Constipation Qualifiers: Constipation type: unspecified constipation type Qualified Code(s): K59.00 - Constipation, unspecified Patient Disposition: Home, Self-Care Instructions: Rectal Bleeding (ED) Additional Instructions: Your blood work was normal which is reassuring. Your bleeding could be caused by an internal hemorrhoid or polyp. Your rectal exam did not reveal any external hemorrhoids but your shoulder was positive for blood. Take the following medications for constipation. Metamucil 1 tsp in 8 oz of water daily for 1 month. This is a fiber supplement and will help with your bowel movements. Colace 1 pill twice a day for 1 month. This is a stool softener. If you do not have a good bowel movement every 4 days then take Senokot twice a day for 3 days. Use preparation H suppositories, 1 suppository twice a day and 1 suppository after each bowel movement. Use this for 1 month. Follow-up with your doctor in 2 days. Please return to the emergency department if your symptoms get worse or if you develop any symptoms that are concerning to you. Prescriptions: No Action cyclobenzaprine 10 mg tablet 10 mg PO TID PRN (Reason: muscle spasm) Qty: 10 RF: 0 oxycodone-acetaminophen [Percocet] 5-325 mg tablet 1 tab PO Q6H PRN (Reason: pain) Qty: 10 RF: 0 naproxen 500 mg tablet 500 mg PO BID PRN (Reason: pain) Qty: 10 RF: 0 lidocaine 5 % adhesive patch,medicated 1 patch topical DAILY Qty: 15 RF: 0 carvedilol [Coreg] 25 mg Tablet 25 mg PO BID RF: 0 atorvastatin 20 mg Tablet 20 mg PO DAILY RF: 0 clonazepam 0.5 mg Tablet 0.5 mg PO DAILY RF: 0 losartan-hydrochlorothiazide 100-25 mg Tablet 1 tab PO DAILY RF: 0 omeprazole 20 mg Capsule,Delayed Release(Dr/Ec) 20 mg PO BID RF: 0 hydrochlorothiazide 25 mg Tablet 25 mg PO DAILY RF: 0 melatonin 10 mg Capsule 20 mg PO DAILY RF: 0
[2020-11-03 22:38] LABS: Basophils Absolute Auto 0.1 X10*3/uL (0.0-0.2); Basophils Percent Auto 0.6 % (0-2); Eosinophils Absolute Auto 0.3 X10*3/uL (0.0-0.4); Eosinophils Percent Auto 2.4 % (0-4); Hematocrit 39.9 % (37-47); Hemoglobin 13.1 g/dl (12.0-16.0); Imm Gran Abs Auto 0.05 X10*3/uL (0.00-0.03); Imm Gran Pct Auto 0.4 % (0.0-0.4); Lymphocytes Absolute Auto 4.5 X10*3/uL (1.2-4.9); MANUAL DIFF FLAG NO; Mean Corpuscular HGB Conc 32.8 g/dl (31.0-35.0); Mean Corpuscular Hemoglobin 27.8 pg (27.0-33.0); Mean Corpuscular Volume 84.5 fL (80-98); Mean Platelet Volume 10.7 fL (9.4-12.3); Monocytes Percent Auto 7.3 % (2-11); Neutrophils Absolute Auto 7.6 X10*3/uL (2.0-8.3); Neutrophils Percent Auto 56.3 % (45-73); Platelet Count 431 X10*3/uL (160-400); Red Blood Count 4.72 X10*6/uL (4.20-5.50); Red Cell Distribution Width 13.3 % (11.0-16.0); White Blood Count 13.5 X10*3/uL (4.8-10.8)
[2020-11-03 22:56] LABS: Alanine Aminotransferase 12 U/L (0-31); Albumin Level 3.9 g/dL (3.5-5.0); Alkaline Phosphatase 117 U/L (39-117); Anion Gap 12 (12-20); Aspartate Amino Transferase 16 U/L (5-31); Bilirubin Total < 0.2 mg/dL (0.0-1.0); Blood Urea Nitrogen 18 mg/dL (9-16); Calcium 9.6 mg/dL (8.4-10.2); Carbon Dioxide 29 mmol/L (22-29); Chloride 101 mmol/L (96-108); Creatinine Clr Calc Pharmacy 108.2; Estimated Glomerular Filt Rate > 60; Glucose Random 110 mg/dL (60-115); Potassium 3.3 mmol/L (3.3-5.1); Sodium 139 mmol/L (135-145); Total Protein 7.1 g/dL (6.5-8.0)
[2020-11-03 23:15] VITALS: BP 144/78; PULSE 80; RESP 16; TEMP 36.3; O2SAT 99
== END 2020-11-04 00:48 | disposition home or self-care (01) ==
PROVIDERS: Emergency Provider Emergency Medicine Emergency Medical Services; PCP Internal Medicine Geriatric Medicine
DX: K92.2 Gastrointestinal hemorrhage, unspecified (principal); K59.00 Constipation, unspecified; I11.0 Hypertensive heart disease with heart failure; I50.9 Heart failure, unspecified
CPT/HCPCS: 36415; 80053; 85025; 99283; 99284

== ENCOUNTER 2020-11-22 12:55 | Outpatient (REF) | payer MEDICAID, SELFPAY ==
--- NOTE | ~2020-11-22 | MM_ITS ---
EXAMINATION: MM SCREENING DIGITAL BREAST TOMOSYNTHESIS, BILATERAL CLINICAL INFORMATION: Screening. Asymptomatic. The lifetime risk of breast cancer based on the Tyrer-Cuzick Model is 11.0%. COMPARISON: Mammography: July 27, 2019 and studies dating back to May 31, 2016 TECHNIQUE: Digital breast tomosynthesis is performed in both the craniocaudal and mediolateral oblique views along with computer-aided detection (CAD). Synthesized 2D images are generated from the tomosynthesis. FINDINGS: The breasts are heterogeneously dense, which may obscure small masses (ACR BI-RADS breast composition Category c). There are no significant masses, abnormal calcifications, or other abnormalities. MM/MM tomosynthesis screening BI IMPRESSION: There are no significant changes from prior study. ASSESSMENT: BI-RADS 1: Negative RECOMMENDATION: Routine annual mammography screening. This patient's information was entered into a reminder system with a target due date for their next mammogram.
== END 2020-11-22 12:56 | disposition home or self-care (01) ==
LOC: HO.MAMMO 12:55
PROVIDERS: PCP Internal Medicine Geriatric Medicine; Visit Provider Internal Medicine Geriatric Medicine
DX: Z12.31 Encounter for screening mammogram for malignant neoplasm of breast (principal)
CPT/HCPCS: 77063; 77067

== ENCOUNTER 2021-01-02 07:42 | Outpatient (REF) | payer MEDICAID, SELFPAY ==
[2021-01-02 08:21] LABS: COVID-19 Test Negative (Negative)
== END 2021-01-02 07:43 | disposition home or self-care (01) ==
LOC: HO.LAB 07:42
PROVIDERS: Visit Provider Internal Medicine
DX: Z20.822 Contact with and (suspected) exposure to COVID-19 (principal)
CPT/HCPCS: 36415; 87635; C9803

== ENCOUNTER 2021-02-05 11:38 | Emergency (ER) | payer MEDICAID, SELFPAY ==
[2021-02-05 13:49] VITALS: BP 136/71; PULSE 69; RESP 18; TEMP 37.2; O2SAT 99; BMI 49.9
--- NOTE | 2021-02-05 13:53 | ED_ITS ---
HPI - Wound/Laceration General Chief Complaint: Wound/Laceration Stated Complaint: post surgery incision opened up, pt bleeding Time Seen by Provider: 02/05/21 13:53 Source: patient Mode of arrival: ambulatory Limitations: language barrier History of Present Illness HPI narrative: 50 y/o female with history of recent total abdominal hysterectomy on 01/16 at [facility] presents to the ED with a small portion of her surgical wound that has opened up slightly. She has some increased pain at the site and mild redness. She went for a long walk yesterday but denies lifting or coughing. No fever, chills, N/V or abdominal pain. No drainage from the site. She did not call her surgeon because it was the weekend. Onset (ago): day(s) Location: abdomen Place: home Patient tetanus UTD: Yes Context: accidental Associated symptoms: pain Related Data Previous Rx's Medication Instructions Recorded cephalexin 500 mg PO Q6H 7 Days #28 cap 02/05/21 Allergies Allergy/AdvReac Type Severity Reaction Status Date / Time No Known Allergies Allergy Verified 02/05/21 13:55 Review of Systems Review of Systems: Constitutional: No Fever, No Chills Gastrointestinal: No Nausea, No Vomiting, No Diarrhea, No abdominal Pain Musculoskeletal: No joint pain, No Myalgias Skin: + Skin Lesions, No rash Neuro: No Weakness, No Numbness Heme/Lymph: No Bruising PMFSH Past Medical History Attestation statement: The following information was validated with the patient. Surgical History (Updated 02/05/21 @ 14:00 by CHRISTIAN Parikh) History of hysterectomy Social History Social History Alcohol intake: never Smoking Status: Former smoker Use of substances other than those prescribed or required for medical reasons: No Advance Directives: Yes Advance Directives Information Provided: Yes Advance Directives on File: No Patient : No Physical Exam Vital Signs: Vital Signs: Last Vital Signs Temp 99.0 F 02/05/21 13:49 Pulse 69 02/05/21 13:49 Resp 18 02/05/21 13:49 BP 136/71 02/05/21 13:49 Pulse Ox 99 02/05/21 13:49 Body Mass Index 49.9 Const: General: cooperative, healthy appearing and comfortable Nutritional Appearance: obese HENMT: Head: Yes normal to inspection Ears: hearing grossly normal bilaterally General nose exam: Normal external nose present Face and sinus: Yes normal facial exam Eyes: General: appearance normal, both eyes and all related structures Neck: Neck: Yes normal visual inspection and Yes full ROM Chest: Chest palpation & inspection: normal inspection of the chest Resp: Effort & Inspection: normal respiratory effort and able to speak in complete sentences GI: Inspection: Yes incision (longitudinal surgical scar w/ 2 cm area of dehiscence, no drainage, mass) and Yes obesity Palpation (GI): Soft to palpation and nontender Skin: General skin exam: no rashes or lesions noted Neuro: General: gait normal Extrem: General: Yes normal to inspection Course Course Course Narrative: 50 y/o female presenting with small portion of her hysterectomy surgical wound dehiscence. No palpable abscess or mass. No cellulitis changes, mild redness at the site itself. No suspected hernia. Steri- strips placed on wound after it was irrigated and cleaned, very superficial, does not track down. Will treat for possible evolving cellulitis and have her f/u with her surgeon tomorrow. Patient agrees with plan and given warning signs and symptoms to return. Stable for d/c. Critical Care Time Critical Care Time Critical Care Time: No Discharge Plan Discharge Clinical Impression: Abdominal wound dehiscence Qualifiers: Encounter type: initial encounter Qualified Code(s): T81.30XA - Disruption of wound, unspecified, initial encounter Patient Disposition: Home, Self-Care Instructions: Wound Dehiscence (ED) Additional Instructions: Start taking the prescribed antibiotics are directed. Follow up with your Surgeon at [facility] tomorrow. Keep the steri-strips in place, do not remove. If you have worsening pain or develop drainage, redness, swelling or any other concerning symptom come back to the ER for further evaluation. Prescriptions: New cephalexin 500 mg capsule 500 mg PO Q6H 7 Days Qty: 28 RF: 0 Discharge Date/Time: 02/05/21 14:02 Print Language: [place]
== END 2021-02-05 14:02 | disposition home or self-care (01) ==
PROVIDERS: Emergency Provider Emergency Medicine
DX: L76.82 Other postprocedural complications of skin and subcutaneous tissue (principal); T81.30XA Disruption of wound, unspecified, initial encounter; R10.9 Unspecified abdominal pain; Y76.8 Miscellaneous obstetric and gynecological devices associated with adverse incidents, not elsewhere classified; Y92.239 Unspecified place in hospital as the place of occurrence of the external cause; Z87.891 Personal history of nicotine dependence; Z79.899 Other long term (current) drug therapy
CPT/HCPCS: 99284

== ENCOUNTER 2021-03-04 11:11 | Emergency (ER) | payer MEDICAID, SELFPAY ==
[2021-03-04 11:54] VITALS: BP 146/94; PULSE 84; RESP 18; TEMP 37.2; O2SAT 99; BMI 52.2
--- NOTE | 2021-03-04 12:24 | ED.DIZZY ---
HPI - Dizziness General Chief Complaint: Dizziness Stated Complaint: dizziness Time Seen by Provider: 03/04/21 11:34 Source: patient and dogger Mode of arrival: ambulatory Limitations: no limitations History of Present Illness MD elicited complaint: lightheadedness Onset (ago): week(s) (1) Timing: gradual onset and intermittent Severity: mild Description: lightheadedness Context: change in body position and other (started a diet to lose weight right when this started she has coffee and 2 eggs in the morning, then drinks one bottle of water, then the rest of the day she has lettuce and at night she will have lettuce, tomatoe and plain tuna this is a drastic change from her prior diet) History of similar symptoms: No Exacerbating factors: change in body position Relieving factors: nothing Associated symptoms: denies other symptoms Related Data Home Medications Medication Instructions Recorded Confirmed atorvastatin 20 mg PO DAILY 07/08/20 07/19/20 carvedilol [Coreg] 25 mg PO BID 07/08/20 07/19/20 clonazepam 0.5 mg PO DAILY 07/08/20 07/19/20 hydrochlorothiazide 25 mg PO DAILY 07/08/20 07/19/20 losartan-hydrochlorothiazide 1 tab PO DAILY 07/08/20 07/19/20 melatonin 20 mg PO DAILY 07/08/20 07/19/20 omeprazole 20 mg PO BID 07/08/20 07/19/20 Previous Rx's Medication Instructions Recorded cyclobenzaprine 10 mg PO TID PRN #10 tab 09/02/20 lidocaine 1 patch TOPICAL DAILY #15 ea 09/02/20 naproxen 500 mg PO BID PRN #10 tab 09/02/20 oxycodone-acetaminophen [Percocet] 1 tab PO Q6H PRN #10 tab 09/02/20 Allergies Allergy/AdvReac Type Severity Reaction Status Date / Time No Known Allergies Allergy Verified 11/03/20 21:01 Review of Systems Review of Systems: Constitutional : No Weight loss, No Fever, No Chills, No Fatigue, No Malaise ENT/Mouth : No sore throat, No Rhinorrhea Eyes: No Eye Pain, No Swelling, No Redness Cardiovascular : No Chest Pain, No SOB, No Dyspnea on Exertion, No Orthopnea, No Edema, No Palpitations Respiratory : No Cough, No Sputum, No Wheezing Gastrointestinal : No Nausea, No Vomiting, No Diarrhea, No Constipation, No abdominal Pain, No Hematochezia, No Melena Genitourinary : No Dysuria, No Urinary Frequency, No Hematuria, Musculoskeletal : No joint pain, No Myalgias, No Joint Swelling Skin : No Skin Lesions, No rash Neuro : No Weakness, No Numbness, pos Dizziness, No Headache Psych : No Anxiety/Panic, No Depression Heme/Lymph: No Bruising, No Bleeding,No Lymphadenopathy Endocrine : No Polyuria, No Polydipsia All other systems reviewed and are negative [facility] Past Medical History Attestation statement: The following information was validated with the patient. Medical History Acid reflux Anxiety Cardiomyopathy CHF (congestive heart failure) Depression Dizziness Glaucoma Heartburn Hernia, umbilical HTN (hypertension) Knee pain Long QT interval Morbid obesity CHACORTA on CPAP Panic attack Surgical History H/O ventral hernia repair Social History Social History Alcohol intake: never Patient Tobacco Use Status: Never used Tobacco Advance Directives: Yes Advance Directives Information Provided: Yes Advance Directives on File: No Patient : No Physical Exam Vital Signs: Vital Signs: Last Vital Signs Temp 98.3 F 03/04/21 15:09 Pulse 84 03/04/21 15:09 Resp 18 03/04/21 15:09 BP 151/66 H 03/04/21 15:09 Pulse Ox 100 03/04/21 15:09 Body Mass Index 52.2 Appearance: Alert. Oriented X3. No acute distress. Eyes: Pupils equal, round and reactive to light. ENT: Pharynx normal. Neck: Normal inspection. Neck supple. CVS: Normal heart rate and rhythm. Pulses normal. Respiratory: No respiratory distress. Breath sounds normal. Abdomen: Soft and nontender. Skin: Skin warm and dry. Normal skin color. Normal skin turgor. Extremities: No lower extremity edema. No calf ttp Neuro: Oriented X 3. No motor deficit. No sensory deficit. Course Course Course Narrative: no acute findings, repleted magnesium, she has not been symptomatic here even with brief episode of bigeminy, repeat EKG shows qtc > 500 baseline in EMR 550 - 500 no acute change today, at this time requesting nutrition help will refer to weight loss program here MDM - Dizziness MDM Narrative Medical decision making narrative: 51 yo female with cardiomyopathy, HLD, obesity, GERD, HTN here with ligtheadedness only with standing after starting a very strict limiting diet where she is likely not eating enough please see HPI - no CP/SOB no neuro deficits she is also only taking in about 16 ounces of water a day, labs, EKG, ortho VS ordered, IV magnesium ordered given prolonged qtc Lab Data Result diagrams: 03/04/21 12:52 03/04/21 12:52 Labs: Lab Results 03/04/21 03/04/21 Range/Units 12:52 12:52 WBC 10.6 (4.8-10.8) X10*3/uL RBC 4.28 (4.20-5.50) X10*6/uL Hgb 12.0 (12.0-16.0) g/dl Hct 36.6 L (37-47) % MCV 85.5 (80-98) fL MCH 28.0 (27.0-33.0) pg MCHC 32.8 (31.0-35.0) g/dl RDW 13.5 (11.0-16.0) % Plt Count 373 (160-400) X10*3/uL MPV 10.7 (9.4-12.3) fL Immature Gran % (Auto) 0.3 (0.0-0.4) % Neut % (Auto) 63.0 (45-73) % Lymph % (Auto) 25.3 (20-40) % [place] % (Auto) 7.8 (2-11) % Eos % (Auto) 3.1 (0-4) % Baso % (Auto) 0.5 (0-2) % Lymph # (Auto) 2.7 (1.2-4.9) X10*3/uL [place] # (Auto) 0.8 (0.1-1.2) X10*3/uL Eos # (Auto) 0.3 (0.0-0.4) X10*3/uL Baso # (Auto) 0.1 (0.0-0.2) X10*3/uL Abs Immat Gran (auto) 0.03 (0.00-0.03) X10*3/uL Absolute Neuts (auto) 6.7 (2.0-8.3) X10*3/uL Absolute Nucleated RBC 0.000 (0.0-0.012) X10*3/uL Nucleated RBC % (auto) 0.0 (0.0-0.2) /100WBC Sodium 141 (135-145) mmol/L Potassium 3.9 (3.3-5.1) mmol/L Chloride 100 (96-108) mmol/L Carbon Dioxide 33 H (22-29) mmol/L Anion Gap 12 (12-20) BUN 15 (9-16) mg/dL Creatinine 0.78 (0.5-1.4) mg/dL Estim Creat Clear Calc 124.2 Estimated GFR > 60 Random Glucose 99 (60-115) mg/dL Calcium 10.2 D (8.4-10.2) mg/dL Magnesium 1.7 (1.6-2.6) mg/dL Total Bilirubin < 0.2 (0.0-1.0) mg/dL Direct Bilirubin < 0.2 (0.0-0.5) mg/dL AST 26 D (5-31) U/L ALT 24 (0-31) U/L Alkaline Phosphatase 108 (39-117) U/L Total Protein 7.4 (6.5-8.0) g/dL Albumin 4.1 (3.5-5.0) g/dL ECG Data Attestation: I personally reviewed and interpreted this ECG as follows: ECG interpretation date: 03/04/21 ECG interpretation time: 12:46 Interpretation: Rate: 87 Rhythm: NSR with occ PVCs [place]: normal Normal P waves. 1st degree AVB Normal QRS complex. ST T wave : normal no OZZIE qTC: prolonged prior studies: no acute ischemia but qtc more prolonged from 500 and 1st degree AVB new The study has been interpreted contemporaneously by me. EKG #2 Rate: 89 Rhythm: NSR with PVCs in bigeminy [place]: left Normal P waves. Normal [place]. Normal QRS complex. ST T wave : normal no OZZIE qTC: prolonged prior studies: no acute ischemia The study has been interpreted contemporaneously by me. EKG#3 Rate: 79 Rhythm: NSR [place]: left Normal P waves. Normal SYMONE. Normal QRS complex. ST T wave : normal no OZZIE qTC: prolonged prior studies: no change from priors The study has been interpreted contemporaneously by me. . Discharge Plan Discharge Clinical Impression: Episodic lightheadedness, Hypomagnesemia Patient Disposition: Home, Self-Care Instructions: Lightheadedness (ED), Weight Management (ED) Additional Instructions: return to ED for any worsening symptoms or concerns Prescriptions: No Action cyclobenzaprine 10 mg tablet 10 mg PO TID PRN (Reason: muscle spasm) Qty: 10 RF: 0 oxycodone-acetaminophen [Percocet] 5-325 mg tablet 1 tab PO Q6H PRN (Reason: pain) Qty: 10 RF: 0 naproxen 500 mg tablet 500 mg PO BID PRN (Reason: pain) Qty: 10 RF: 0 lidocaine 5 % adhesive patch,medicated 1 patch topical DAILY Qty: 15 RF: 0 carvedilol [Coreg] 25 mg Tablet 25 mg PO BID RF: 0 atorvastatin 20 mg Tablet 20 mg PO DAILY RF: 0 clonazepam 0.5 mg Tablet 0.5 mg PO DAILY RF: 0 losartan-hydrochlorothiazide 100-25 mg Tablet 1 tab PO DAILY RF: 0 omeprazole 20 mg Capsule,Delayed Release(Dr/Ec) 20 mg PO BID RF: 0 hydrochlorothiazide 25 mg Tablet 25 mg PO DAILY RF: 0 melatonin 10 mg Capsule 20 mg PO DAILY RF: 0 Referrals: Dang Foster PA-C [Physician Value Stream Manager] - [address], LDN [Registered Dietitian] - 2 days Print Language: [place]
--- NOTE | 2021-03-04 12:37 | ECG_ITS ---
Test Reason : DIZZINESS Blood Pressure : / mmHG Vent. Rate : 085 BPM Atrial Rate : 085 BPM P-R Int : 228 ms QRS Dur : 098 ms QT Int : 440 ms P-R-T Axes : 071 -25 057 degrees QTc Int : 523 ms Sinus rhythm with 1st degree A-V block Incomplete right bundle branch block Prolonged QT Abnormal ECG When compared with ECG of 06-JUL-2015 05:18, [place] interval has increased Nonspecific T wave abnormality no longer evident in Anterior leads Referred By: Theresa Trent Electronically Signed By:RENEA CUMMINGS
[2021-03-04 12:57] LABS: MANUAL DIFF FLAG NO
[2021-03-04 12:58] LABS: Basophils Absolute Auto 0.1 X10*3/uL (0.0-0.2); Basophils Percent Auto 0.5 % (0-2); Eosinophils Absolute Auto 0.3 X10*3/uL (0.0-0.4); Eosinophils Percent Auto 3.1 % (0-4); Hematocrit 36.6 % (37-47); Imm Gran Abs Auto 0.03 X10*3/uL (0.00-0.03); Imm Gran Pct Auto 0.3 % (0.0-0.4); Lymphocytes Absolute Auto 2.7 X10*3/uL (1.2-4.9); Lymphocytes Percent Auto 25.3 % (20-40); Mean Corpuscular HGB Conc 32.8 g/dl (31.0-35.0); Mean Corpuscular Volume 85.5 fL (80-98); Mean Platelet Volume 10.7 fL (9.4-12.3); Monocytes Absolute Auto 0.8 X10*3/uL (0.1-1.2); Monocytes Percent Auto 7.8 % (2-11); Neutrophils Absolute Auto 6.7 X10*3/uL (2.0-8.3); Platelet Count 373 X10*3/uL (160-400); Red Blood Count 4.28 X10*6/uL (4.20-5.50); Red Cell Distribution Width 13.5 % (11.0-16.0); White Blood Count 10.6 X10*3/uL (4.8-10.8)
[2021-03-04] MEDS: Magnesium Sulfate/H2O 2 GM/50 ML PIGGYBACK IV (13:09)
--- NOTE | 2021-03-04 13:14 | ECG_ITS ---
Test Reason : REPEAT Blood Pressure : / mmHG Vent. Rate : 079 BPM Atrial Rate : 079 BPM P-R Int : 200 ms QRS Dur : 092 ms QT Int : 482 ms P-R-T Axes : 049 -22 038 degrees QTc Int : 552 ms Normal sinus rhythm Prolonged QT Abnormal ECG When compared with ECG of 04-MAR-2021 14:36, Premature ventricular complexes are no longer Present Referred By: Theresa Trent Electronically Signed By:Edmundo Ram
[2021-03-04 13:55] LABS: Alanine Aminotransferase 24 U/L (0-31); Albumin Level 4.1 g/dL (3.5-5.0); Alkaline Phosphatase 108 U/L (39-117); Anion Gap 12 (12-20); Aspartate Amino Transferase 26 U/L (5-31); Bilirubin Direct < 0.2 mg/dL (0.0-0.5); Bilirubin Total < 0.2 mg/dL (0.0-1.0); Blood Urea Nitrogen 15 mg/dL (9-16); Calcium 10.2 mg/dL (8.4-10.2); Carbon Dioxide 33 mmol/L (22-29); Chloride 100 mmol/L (96-108); Creatinine Clr Calc Pharmacy 124.2; Estimated Glomerular Filt Rate > 60; Glucose Random 99 mg/dL (60-115); Magnesium 1.7 mg/dL (1.6-2.6); Potassium 3.9 mmol/L (3.3-5.1); Sodium 141 mmol/L (135-145); Total Protein 7.4 g/dL (6.5-8.0)
--- NOTE | 2021-03-04 14:31 | ECG_ITS ---
Test Reason : recheck q tc Blood Pressure : / mmHG Vent. Rate : 089 BPM Atrial Rate : 089 BPM P-R Int : 208 ms QRS Dur : 094 ms QT Int : 000 ms P-R-T Axes : 053 -24 056 degrees QTc Int : 000 ms Sinus rhythm with frequent Premature ventricular complexes in a pattern of bigeminy \ Cannot calculate QTc Abnormal ECG When compared with ECG of 04-MAR-2021 12:44, PVCs more frequent Referred By: Theresa Trent Electronically Signed By:RENEA CUMMINGS
[2021-03-04 15:05] VITALS: BP 144/70; PULSE 82
[2021-03-04 15:06] VITALS: BP 152/70; PULSE 97
[2021-03-04 15:08] VITALS: BP 151/66; PULSE 84
[2021-03-04 15:09] VITALS: BP 151/66; PULSE 84; RESP 18; TEMP 36.8; O2SAT 100
--- NOTE | 2021-03-04 15:28 | PC.NURSE ---
PT REPORTS FEELING SIGNIFICANT IMPROVEMENT WITH DIZZINESS. HAS NOW AMBULATED MULTIPLE TIMES TO BATHROOM, STEADILY & INDEPENDENTLY WITH NO ISSUE. FEWER PVCS ON MONITOR NOTED WELL.
== END 2021-03-04 16:20 | disposition home or self-care (01) ==
PROVIDERS: Emergency Provider Emergency Medicine; PCP Internal Medicine Geriatric Medicine
DX: R42 Dizziness and giddiness (principal); E83.42 Hypomagnesemia; I11.0 Hypertensive heart disease with heart failure; I50.9 Heart failure, unspecified; Z79.899 Other long term (current) drug therapy
CPT/HCPCS: 36415; 80048; 80076; 83735; 85025; 93005; 96365; 96366; 99284; 99285; J3475

== ENCOUNTER 2021-05-19 09:22 | Emergency (ER) | payer MEDICAID, SELFPAY ==
[2021-05-19 09:24] VITALS: BP 155/91; PULSE 97; RESP 18; TEMP 36; O2SAT 97; BMI 49.9
--- NOTE | 2021-05-19 09:32 | ED.BACK ---
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 Mode of arrival: ambulatory Limitations: no limitations History of Present Illness MD elicited complaint: back pain and back injury Pertinent past history: prior back pain and recent trauma Onset (ago): day(s) (5) Timing: constant Severity: similar to previous episodes Similar Symptoms Previously: Yes Quality: dull, spasming and throbbing Location: lumbar spine Radiation: left upper leg and right upper leg Exacerbating factors: movement, sitting upright and walking Relieving factors: none Context: while lifting (picked up her brother whom she cares for) Associated symptoms: denies other symptoms Treatments prior to arrival: other medications Work related injury: Yes Related Data Home Medications Medication Instructions Recorded Confirmed atorvastatin 20 mg tablet 20 mg PO DAILY 07/08/20 07/19/20 carvedilol 25 mg tablet (Coreg) 25 mg PO BID 07/08/20 07/19/20 clonazepam 0.5 mg tablet 0.5 mg PO DAILY 07/08/20 07/19/20 hydrochlorothiazide 25 mg tablet 25 mg PO DAILY 07/08/20 07/19/20 losartan 100 1 tab PO DAILY 07/08/20 07/19/20 mg-hydrochlorothiazide 25 mg tablet melatonin 10 mg capsule 20 mg PO DAILY 07/08/20 07/19/20 omeprazole 20 mg capsule,delayed 20 mg PO BID 07/08/20 07/19/20 release Previous Rx's Medication Instructions Recorded cyclobenzaprine 10 mg tablet 10 mg PO TID PRN #10 tab 09/02/20 lidocaine 5 % topical patch 1 patch TOPICAL DAILY #15 ea 09/02/20 naproxen 500 mg tablet 500 mg PO BID PRN #10 tab 09/02/20 oxycodone-acetaminophen 5 mg-325 1 tab PO Q6H PRN #10 tab 09/02/20 mg tablet (Percocet) diazepam 5 mg tablet (Valium) 5 mg PO TID PRN #10 tab 05/19/21 lidocaine 4 % topical patch 1 patch TOPICAL DAILY PRN #10 ea 05/19/21 prednisone 20 mg tablet 40 mg PO DAILY 5 Days #10 tab 05/19/21 Allergies Allergy/AdvReac Type Severity Reaction Status Date / Time No Known Allergies Allergy Verified 02/18/21 21:01 Review of Systems Review of Systems: Constitutional : No Weight loss, No Fever, No Chills, ENT/Mouth : No Hearing loss, No Ear Pain, No Nasal Congestion, No Sinus Pain, No Hoarseness, No sore throat, No Rhinorrhea, No Swallowing Difficulty Cardiovascular : No Chest Pain, No SOB Respiratory : No Cough, No Dyspnea Gastrointestinal : No Nausea, No Vomiting, No Diarrhea, No abdominal Pain, No Hematochezia, No Melena Genitourinary : No Dysuria, No Urinary Frequency, No Hematuria, No Urinary Incontinence, Musculoskeletal : positive back pain Skin : No Skin Lesions, No rash Neuro : No Weakness, No Numbness, No Paresthesias, no loss of bowel or bladder incontinence, no saddle anesthesia [facility] Past Medical History Attestation statement: The following information was validated with the patient. Medical History Acid reflux Anxiety Cardiomyopathy CHF (congestive heart failure) Depression Dizziness Glaucoma Heartburn Hernia, umbilical HTN (hypertension) Knee pain Long QT interval Morbid obesity CHACORTA on CPAP Panic attack Surgical History H/O ventral hernia repair Social History Social History Alcohol intake: never Patient Tobacco Use Status: Never used Tobacco Advance Directives: No Advance Directives Information Provided: No Physical Exam Vital Signs: Vital Signs: Last Vital Signs Temp 96.8 F 05/19/21 09:24 Pulse 97 05/19/21 09:24 Resp 18 05/19/21 09:24 BP 155/91 H 05/19/21 09:24 Pulse Ox 97 05/19/21 09:24 Body Mass Index 49.9 Appearance: Alert. Oriented X3. No acute distress. Eyes: Pupils equal, round and reactive to light. ENT: Pharynx normal. Neck: Normal inspection. Neck supple. CVS: Normal heart rate and rhythm. Pulses normal. Respiratory: No respiratory distress. Breath sounds normal. Abdomen: Soft and nontender. Back: ttp along lower lumbar paraspinals muscles Skin: Skin warm and dry. Normal skin color. Normal skin turgor. Extremities: No lower extremity edema. No calf ttp Neuro: Oriented X 3. No motor deficit. No sensory deficit. SILT inner thigh, distal NV intact L5/5 bilaterally MDM - Back Pain/Injury MDM Narrative Medical decision making narrative: 51 yo female with hx of back pain, GERD, HLD here with low back pain for the past 5 days after lifting her brother whom she cares for - denies b/b incontinence, no saddle anesthesia, no IVDA, no abdominal pain, NV intact, no CE symptoms - hx of same in past, reports flexeril is not working - at this time will refer to PCP and start on oral pain medications, MSK strain suspected no GI or symptoms Discharge Plan Discharge Clinical Impression: Strain of lumbar region Patient Disposition: Home, Self-Care Instructions: Low Back Strain (ED), Lower Back Exercises (ED) Additional Instructions: return to ED for any worsening symptoms or concerns Prescriptions: New lidocaine 4 % adhesive patch,medicated 1 patch topical DAILY PRN (Reason: pain) Qty: 10 RF: 0 prednisone 20 mg tablet 40 mg PO DAILY 5 Days Qty: 10 RF: 0 diazepam [Valium] 5 mg tablet 5 mg PO TID PRN (Reason: muscle spasm) Qty: 10 RF: 0 No Action cyclobenzaprine 10 mg tablet 10 mg PO TID PRN (Reason: muscle spasm) Qty: 10 RF: 0 oxycodone-acetaminophen [Percocet] 5-325 mg tablet 1 tab PO Q6H PRN (Reason: pain) Qty: 10 RF: 0 naproxen 500 mg tablet 500 mg PO BID PRN (Reason: pain) Qty: 10 RF: 0 lidocaine 5 % adhesive patch,medicated 1 patch topical DAILY Qty: 15 RF: 0 carvedilol [Coreg] 25 mg Tablet 25 mg PO BID RF: 0 atorvastatin 20 mg Tablet 20 mg PO DAILY RF: 0 clonazepam 0.5 mg Tablet 0.5 mg PO DAILY RF: 0 losartan-hydrochlorothiazide 100-25 mg Tablet 1 tab PO DAILY RF: 0 omeprazole 20 mg Capsule,Delayed Release(Dr/Ec) 20 mg PO BID RF: 0 hydrochlorothiazide 25 mg Tablet 25 mg PO DAILY RF: 0 melatonin 10 mg Capsule 20 mg PO DAILY RF: 0 Referrals: Name,MD Eusebio [Primary Care Provider] - 5 days Print Language: Urdu
== END 2021-05-19 10:13 | disposition home or self-care (01) ==
PROVIDERS: Emergency Provider Emergency Medicine; PCP Internal Medicine Geriatric Medicine
DX: S39.012A Strain of muscle, fascia and tendon of lower back, initial encounter (principal); X50.0XXA Overexertion from strenuous movement or load, initial encounter; Y93.9 Activity, unspecified; Y92.9 Unspecified place or not applicable; Y99.9 Unspecified external cause status; Z79.899 Other long term (current) drug therapy
CPT/HCPCS: 99283

== ENCOUNTER 2021-07-26 14:00 | Outpatient (RCR) | payer MEDICAID, SELFPAY | END 2021-09-12 13:52 | disposition home or self-care (01) | LOC: HO.PT 14:00 | PROVIDERS: PCP Internal Medicine Geriatric Medicine; Visit Provider Internal Medicine Geriatric Medicine | DX: M54.50 Low back pain, unspecified (principal) | CPT/HCPCS: 97110; 97161; 97530 ==

== ENCOUNTER 2021-08-14 05:51 | Outpatient (REF) | payer MEDICAID, SELFPAY ==
[2021-08-14 07:12] LABS: Hemoglobin 12.3 g/dl (12.0-16.0); Mean Corpuscular HGB Conc 31.5 g/dl (31.0-35.0); Mean Corpuscular Hemoglobin 27.8 pg (27.0-33.0); Mean Platelet Volume 11.3 fL (9.4-12.3); Platelet Count 368 X10*3/uL (160-400); Red Blood Count 4.43 X10*6/uL (4.20-5.50); Red Cell Distribution Width 13.5 % (11.0-16.0); White Blood Count 11.7 X10*3/uL (4.8-10.8)
[2021-08-14 07:35] LABS: Alanine Aminotransferase 15 U/L (0-31); Albumin Level 3.7 g/dL (3.5-5.0); Alkaline Phosphatase 96 U/L (39-117); Anion Gap 13 (12-20); Aspartate Amino Transferase 14 U/L (5-31); Bilirubin Direct < 0.2 mg/dL (0.0-0.5); Bilirubin Total 0.2 mg/dL (0.0-1.0); Blood Urea Nitrogen 18 mg/dL (9-16); Calcium 10.1 mg/dL (8.4-10.2); Carbon Dioxide 33 mmol/L (22-29); Chloride 97 mmol/L (96-108); Cholesterol 151 mg/dL; Estimated Glomerular Filt Rate > 60; Glucose Random 119 mg/dL (60-115); HDL Cholesterol 35 mg/dL; LDL Cholesterol Calculated 85 mg/dl; Potassium 3.5 mmol/L (3.3-5.1); Sodium 139 mmol/L (135-145); Total Protein 6.9 g/dL (6.5-8.0); Triglycerides 155 mg/dL
[2021-08-14 07:58] LABS: TSH reflex Free T4 1.43 uIU/mL (0.32-4.0)
[2021-08-14 08:03] LABS: Estimated Average Glucose 120 mg/dL; Hemoglobin A1c % 5.8 %
== END 2021-08-14 05:52 | disposition home or self-care (01) ==
LOC: HO.LAB 05:51
PROVIDERS: PCP Internal Medicine Geriatric Medicine; Visit Provider Internal Medicine Geriatric Medicine
DX: E66.01 Morbid (severe) obesity due to excess calories (principal); G47.33 Obstructive sleep apnea (adult) (pediatric); G89.29 Other chronic pain; I10 Essential (primary) hypertension; I42.9 Cardiomyopathy, unspecified; M54.50 Low back pain, unspecified
CPT/HCPCS: 36415; 80048; 80061; 80076; 83036; 84443; 85027

== ENCOUNTER → 2021-11-28 12:59 | Outpatient (BNVA) | payer MEDICAID, SELFPAY | PROVIDERS: PCP Internal Medicine Geriatric Medicine; Referring Provider Internal Medicine Geriatric Medicine; Visit Provider Nurse Practitioner Family | DX: K59.01 Slow transit constipation (principal) | CPT/HCPCS: 99202 ==

== ENCOUNTER 2021-12-01 12:36 | Outpatient (REF) | payer MEDICAID, SELFPAY ==
--- NOTE | ~2021-12-01 | MM_ITS ---
EXAMINATION: MM SCREENING DIGITAL BREAST TOMOSYNTHESIS, BILATERAL CLINICAL INFORMATION: Screening. Asymptomatic. The lifetime risk of breast cancer based on the Tyrer-Cuzick Model is 12.0%. COMPARISON: Mammography: November 22, 2020 and studies dating back to May 11, 2013 TECHNIQUE: Digital breast tomosynthesis is performed in both the craniocaudal and mediolateral oblique views along with computer-aided detection (CAD). Synthesized 2D images are generated from the tomosynthesis. FINDINGS: The breasts are heterogeneously dense, which may obscure small masses (ACR BI-RADS breast composition Category c). There are no significant masses, abnormal calcifications, or other abnormalities. MM/MM tomosynthesis screening BI IMPRESSION: There are no significant changes from prior study. ASSESSMENT: BI-RADS 1: Negative RECOMMENDATION: Routine annual mammography screening. This patient's information was entered into a reminder system with a target due date for their next mammogram.
== END 2021-12-01 12:37 | disposition home or self-care (01) ==
LOC: HO.MAMMO 12:36
PROVIDERS: PCP Internal Medicine Geriatric Medicine; Visit Provider Internal Medicine Geriatric Medicine
DX: Z12.31 Encounter for screening mammogram for malignant neoplasm of breast (principal)
CPT/HCPCS: 77063; 77067

== ENCOUNTER → 2021-12-21 10:30 | Outpatient (BNVA) | payer MEDICAID, SELFPAY | PROVIDERS: PCP Internal Medicine Geriatric Medicine; Visit Provider Nurse Practitioner Family | DX: M47.817 Spondylosis without myelopathy or radiculopathy, lumbosacral region (principal); M25.551 Pain in right hip; M53.3 Sacrococcygeal disorders, not elsewhere classified | CPT/HCPCS: 99202 ==

== ENCOUNTER 2022-01-10 08:02 | Day surgery (SDC) | payer MEDICAID, SELFPAY ==
[2022-01-05 10:54] VITALS: BMI 57.2
--- NOTE | 2022-01-10 09:01 | P.HPSUR_ITS ---
Pre-Procedural Eval Section A Date of Service: 01/10/22 Section B Chief Complaint: screening Relevant Family History (Specify if Yes): No Relevant Social History: Tobacco Use (ex smoker) Present Medications: see Short Stay Collaborative assessment Medical History: Significant History (Acid reflux Anxiety Cardiomyopathy CHF (congestive heart failure) Depression Dizziness Heartburn Hernia, umbilical HTN (hypertension) Knee pain Long QT interval Morbid obesity CHACORTA on CPAP Panic attack) History of Previous Operations: Relevant previous surgery/procedure and date(s) (H/O ventral hernia repair History of hysterectomy Hx of colonoscopy) Allergies: Allergies Allergy/AdvReac Type Severity Reaction Status Date / Time No Known Allergies Allergy Verified 01/05/22 10:53 Review of Systems Sugical H&P ROS: Negative: Constitution, Cardiovascular, Respiratory, Javan rological, Psychiatric, Hem-Onc, Allergic/Immunologic, Gastrointestinal, Genitourinary, Musculoskeletal, Integumentary, Endocrine and Eyes/Ears/Nose/Throat Exam Surgical H&P Exam: Normal: HEENT, Normal: Heart, Normal: Lungs, Normal: Extremities, Normal: Abdomen, Normal: Skin and Normal: Neurological Exam Comment: obese, fat neck Plan Diagnosis/Plan: Unchanged I have reviewed the history and physical and performed a pertinent physical examination on my patient. No changes have occurred unless specified.
[2022-01-10 09:53] VITALS: BP 105/44; PULSE 73; RESP 16; TEMP 36.2; O2SAT 100
--- NOTE | 2022-01-10 10:46 | P.BOP_ITS ---
Brief Operative Note Date of Service: 01/10/22 Pre-op diagnosis: colon screening Post-op diagnosis: same Procedure: see op note Surgeon: Prieto Pratt MD Anesthesia: MAC Was an Multi Media Specialist used for this Procedure?: No Estimated blood loss (mL): 0 Condition: stable Disposition: PACU
--- NOTE | 2022-01-10 10:46 | W.PM.OPN ---
Operative Note Operative Note Date of Service: 01/10/22 Narrative: Operative Information Procedure Description: Colonoscopy Indication: screening colonoscopy Anesthesia: MAC COLONOSCOPY Instrument: Olympus variable stiffness Adult scope 190L Colonoscopy Monitoring: Vital signs and clinical assessment, continuous EKG monitoring, Pulse oximetry, Carbon Dioxide monitoring and blood pressure monitoring were done throughout the procedure. Colon withdrawal time was 17 minutes. Procedure: The patient was placed in the left lateral decubitis position and pre-procedure medications were administered. After a digital rectal examination of the ano-rectum, the video colonoscope was inserted into the rectum and advanced through the colon to the cecum/TI. The colonoscope was slowly withdrawn in a retrograde panoramic fashion and the colon mucosa was carefully examined including a retroflexed view of the rectum. Findings and interventions are described below. Procedure Difficulty: moderate, pressure applied to RLQ to get to cecum Findings: Terminal Ileum-not intubated Cecum: 6-7 mm sessile polyp removed with forceps Ascending Colon: normal Transverse Colon -normal Descending Colon:normal Sigmoid Colon: Few diverticula seen, x 2 sessile polyps 6-8 mm removed with forceps Rectum: Retroflexion with small internal hemorrhoids, grade I 10 mm sessile polyp removed with cold snare Anorectum - normal Colon preparation: [place] Bowel Preparation Scale Right colon; 2 Transverse colon: 2 Left colon; 2 (0 = Unprepared colon segment with mucosa not seen due to solid stool that cannot be cleared. 1 = Portion of mucosa of the colon segment seen, but other areas of the colon segment not well seen due to staining, residual stool and/or opaque liquid. 2 = Minor amount of residual staining, small fragments of stool and/or opaque liquid, but mucosa of colon segment seen well. 3 = Entire mucosa of colon segment seen well with no residual staining, small fragments of stool or opaque liquid) Impression and Post Procedure Diagnosis: polyps internal hemorrhoids diverticular disease Plan: High fiber diet leaflet Avoid straining at stool, epsom salts and sitz bath, anusol supps or cream Repeat Colonoscopy in 5 years if adenomatous polyps, 10 yrs if hyperplastic or earlier if clinically indicated Above findings were reviewed with the patient and relevant handouts were provided if indicated.
--- NOTE | 2022-01-10 11:13 | P.CONAN_ITS ---
[facility] Active Problems Active Problems: All Active Problems (Updated 12/21/21 @ 11:14 by ANGELA Colon) Sacroiliac joint dysfunction of right side (Acute) Lumbosacral spondylosis (Acute) Right hip pain (Acute) H/O ventral hernia repair (Acute) Past Medical History Medical History Acid reflux Anxiety Cardiomyopathy CHF (congestive heart failure) Depression Dizziness Glaucoma Heartburn Hernia, umbilical HTN (hypertension) Knee pain Long QT interval Morbid obesity CHACORTA on CPAP Panic attack Family History Family history of problems with anesthesia: No Surgical History Surgical History H/O ventral hernia repair History of hysterectomy Hx of colonoscopy History of Problems with Anesthesia: No Social History Social History Are you a primary pediatric acute care unit nurse to a significant other at home: No Do you presently have visiting nurse or other home services: No Alcohol intake: never Patient Tobacco Use Status: Tobacco use Unknown Use of substances other than those prescribed or required for medical reasons: No Have you been hit, kicked, punched, or otherwise hurt by someone within the past year? If so, by whom?: No Are you DNR?: No Advance Directives: No Advance Directives Information Provided: Yes Advance Directives on File: No Recently lost weight without trying: No Meds Allergies Allergy/AdvReac Type Severity Reaction Status Date / Time No Known Allergies Allergy Verified 01/05/22 10:53 Home Medications Medication Instructions Recorded Confirmed Last Taken Type atorvastatin 20 mg tablet 20 mg PO DAILY 07/08/20 01/05/22 01/10/22 07:30 History carvedilol 25 mg tablet (Coreg) 25 mg PO BID 07/08/20 01/05/22 01/10/22 07:30 History clonazepam 0.5 mg tablet 0.5 mg PO DAILY 07/08/20 01/10/22 01/09/22 07:30 History hydrochlorothiazide 25 mg tablet 25 mg PO DAILY 07/08/20 01/05/22 01/10/22 07:30 History melatonin 10 mg capsule 20 mg PO BEDTIME 07/08/20 01/05/22 07/07/20 History omeprazole 20 mg capsule,delayed 20 mg PO BID 07/08/20 01/05/22 07/07/20 History release hydralazine 25 mg tablet 25 mg PO BID 11/28/21 01/05/22 01/10/22 07:30 History losartan 50 mg tablet 100 mg PO DAILY 11/28/21 01/05/22 01/10/22 07:30 History acetaminophen 650 mg 1,300 mg PO Q6-8H PRN 12/21/21 01/05/22 Unknown History tablet,extended release Exam Exam Date and Time: January 10, 2022 1113 Height,Weight and Vital Signs: Height 5 ft 5 in Weight 156.036 kg Last Vital Signs Temp 97.2 F 01/10/22 09:53 Pulse 73 01/10/22 09:53 Resp 16 01/10/22 09:53 BP 105/44 L 01/10/22 09:53 Pulse Ox 100 01/10/22 09:53 Airway Mallampati Class: III TM Dist: >3cm Neck ROM: Full Heart: rrr Lungs: cta Assessment and Plan Assessment Anesthesia Assessment: Anesthesia Plan Discussed and Chart Reviewed Final Anesthetic Review Family History of Problems with Anesthesia: No History of Problems with Anesthesia: No NPO: Yes ASA Class: III Final Preanesthetic Review: No Changes in Pt Med Stat, Meds/Allgs Chart Reviewed and Consent Obtained/Reviewed Patient Risk: Intermediate Procedure Risk: Intermediate Anesthetic Plan Anesthetic Plan: MAC: Disposition: Standard PACU
[2022-01-10 11:20] VITALS: BP 97/50; PULSE 79; RESP 16; TEMP 36.3; O2SAT 99
[2022-01-10 11:35] VITALS: BP 117/54; PULSE 72; RESP 18; O2SAT 100
[2022-01-10 11:50] VITALS: BP 105/45; PULSE 74; RESP 18; TEMP 36.6; O2SAT 98
[2022-01-10 12:05] VITALS: BP 116/50; PULSE 69; RESP 18; TEMP 36.3; O2SAT 99
[2022-01-10 12:20] VITALS: BP 122/69; PULSE 72; RESP 16; O2SAT 99
== END 2022-01-10 12:40 | disposition home or self-care (01) ==
PROVIDERS: PCP Internal Medicine Geriatric Medicine; Visit Provider Internal Medicine Gastroenterology
PROC: 0DJD8ZZ Inspection of Lower Intestinal Tract, Via Natural or Artificial Opening Endoscopic (ICD-10-PCS; CPT 45378; principal; 2022-01-10 10:10)
DX: Z12.11 Encounter for screening for malignant neoplasm of colon (principal); K63.5 Polyp of colon; K62.1 Rectal polyp; K57.30 Diverticulosis of large intestine without perforation or abscess without bleeding; K64.0 First degree hemorrhoids; K21.9 Gastro-esophageal reflux disease without esophagitis; K59.01 Slow transit constipation; E66.01 Morbid (severe) obesity due to excess calories; Z68.43 Body mass index [BMI] 50.0-59.9, adult; I50.9 Heart failure, unspecified; I42.9 Cardiomyopathy, unspecified; I11.0 Hypertensive heart disease with heart failure; G47.33 Obstructive sleep apnea (adult) (pediatric); Z99.89 Dependence on other enabling machines and devices
CPT/HCPCS: 45385; 45380; 88305

== ENCOUNTER → 2022-02-09 13:20 | Outpatient (BNVA) | payer MEDICAID, SELFPAY | PROVIDERS: PCP Internal Medicine Geriatric Medicine; Referring Provider Internal Medicine Geriatric Medicine; Visit Provider Nurse Practitioner Family | DX: K57.90 Diverticulosis of intestine, part unspecified, without perforation or abscess without bleeding (principal); K59.04 Chronic idiopathic constipation; Z98.890 Other specified postprocedural states | CPT/HCPCS: 99212 ==

== ENCOUNTER 2022-02-26 08:27 | Outpatient (REF) | payer MEDICAID, SELFPAY ==
[2022-02-26 09:09] LABS: Hematocrit 37.5 % (37.0-47.0); Hemoglobin 12.2 g/dl (12.0-16.0); Mean Corpuscular HGB Conc 32.5 g/dl (31.0-35.0); Mean Corpuscular Hemoglobin 27.9 pg (27.0-33.0); Mean Corpuscular Volume 85.6 fL (80.0-98.0); Mean Platelet Volume 11.1 fL (9.4-12.3); Platelet Count 331 X10*3/uL (160-400); Red Blood Count 4.38 X10*6/uL (4.20-5.50); Red Cell Distribution Width 13.8 % (11.0-16.0); White Blood Count 8.9 X10*3/uL (4.8-10.8)
[2022-02-26 09:37] LABS: Alanine Aminotransferase 17 U/L (0-31); Albumin Level 3.8 g/dL (3.5-5.0); Alkaline Phosphatase 110 U/L (39-117); Anion Gap 12 (12-20); Aspartate Amino Transferase 15 U/L (5-31); Bilirubin Total 0.5 mg/dL (0.0-1.0); Blood Urea Nitrogen 14 mg/dL (9-16); Calcium 9.5 mg/dL (8.4-10.2); Carbon Dioxide 32 mmol/L (22-29); Chloride 97 mmol/L (96-108); Cholesterol 158 mg/dL; Estimated Glomerular Filt Rate > 60; Glucose Random 112 mg/dL (60-115); HDL Cholesterol 35 mg/dL; LDL Cholesterol Calculated 88 mg/dl; Potassium 3.6 mmol/L (3.3-5.1); Sodium 137 mmol/L (135-145); Total Protein 7.2 g/dL (6.5-8.0); Triglycerides 176 mg/dL
[2022-02-26 09:42] LABS: Estimated Average Glucose 117 mg/dL; Hemoglobin A1c % 5.7 %
[2022-02-26 09:58] LABS: TSH reflex Free T4 1.21 uIU/mL (0.32-4.0)
== END 2022-02-26 08:28 | disposition home or self-care (01) ==
LOC: HO.LAB 08:27
PROVIDERS: PCP Internal Medicine Geriatric Medicine; Visit Provider Internal Medicine Geriatric Medicine
DX: G47.33 Obstructive sleep apnea (adult) (pediatric) (principal); I10 Essential (primary) hypertension; I42.9 Cardiomyopathy, unspecified
CPT/HCPCS: 36415; 80053; 80061; 83036; 84443; 85027

== ENCOUNTER 2022-03-06 06:26 | Outpatient (REF) | payer MEDICAID, SELFPAY ==
--- NOTE | ~2022-03-06 | FL_ITS ---
EXAMINATION: XR FLUOROSCOPY WITH IMAGES CLINICAL INFORMATION: Sacrococcygeal disorder. COMPARISON: None. TECHNIQUE: Fluoroscopy performed by Rocío Buenrostro. Fluoroscopy time: 0.3 minutes DAP: 3.03 Gycm2 Images: 4 FINDINGS: Images show needle overlying the region of the right sacroiliac joint. FL/FL guidance in treatment room IMPRESSION: Fluoroscopy for pain management procedure.
== END 2022-03-06 06:27 | disposition home or self-care (01) ==
LOC: HO.RADIR 06:26
PROVIDERS: Visit Provider Anesthesiology
DX: M53.3 Sacrococcygeal disorders, not elsewhere classified (principal); M47.817 Spondylosis without myelopathy or radiculopathy, lumbosacral region; M25.551 Pain in right hip; E66.01 Morbid (severe) obesity due to excess calories; Z68.43 Body mass index [BMI] 50.0-59.9, adult
CPT/HCPCS: 27096

== ENCOUNTER → 2022-03-15 11:04 | Outpatient (BNVA) | payer MEDICAID, SELFPAY | PROVIDERS: PCP Internal Medicine Geriatric Medicine; Visit Provider Nurse Practitioner Family | DX: M25.551 Pain in right hip (principal); M47.817 Spondylosis without myelopathy or radiculopathy, lumbosacral region; M53.3 Sacrococcygeal disorders, not elsewhere classified | CPT/HCPCS: 99212 ==

== ENCOUNTER 2022-04-10 06:01 | Outpatient (REF) | payer MEDICAID, SELFPAY ==
--- NOTE | ~2022-04-10 | FL_ITS ---
EXAMINATION: XR FLUOROSCOPY WITH IMAGES CLINICAL INFORMATION: Sacrococcygeal disorders. COMPARISON: None. TECHNIQUE: Fluoroscopy performed by Dr. Ja Bynum. Fluoroscopy time: 0.1 minute. Cumulative Dose: 9.24 mGy. DAP: 2.52 Gy-cm2. Images: 1. FINDINGS: A radiopaque needle projects over the right sacroiliac joint with minimal contrast noted. FL/FL guidance in treatment room IMPRESSION: Radiopaque needle overlying the right sacroiliac joint for intervention. Please refer to procedural report for further information.
== END 2022-04-10 06:02 | disposition home or self-care (01) ==
LOC: HO.RADIR 06:01
PROVIDERS: Visit Provider Anesthesiology
DX: M53.3 Sacrococcygeal disorders, not elsewhere classified (principal); M25.551 Pain in right hip; M47.817 Spondylosis without myelopathy or radiculopathy, lumbosacral region; M46.1 Sacroiliitis, not elsewhere classified
CPT/HCPCS: 27096; J3300

== ENCOUNTER → 2022-05-08 08:31 | Outpatient (BNVA) | payer MEDICAID, SELFPAY | PROVIDERS: PCP Internal Medicine Geriatric Medicine; Visit Provider Nurse Practitioner Family | DX: M48.061 Spinal stenosis, lumbar region without neurogenic claudication (principal); M46.1 Sacroiliitis, not elsewhere classified; M53.3 Sacrococcygeal disorders, not elsewhere classified; M47.817 Spondylosis without myelopathy or radiculopathy, lumbosacral region; M62.830 Muscle spasm of back; M25.551 Pain in right hip | CPT/HCPCS: 99212 ==

== ENCOUNTER → 2022-07-17 08:26 | Outpatient (BNVA) | payer MEDICAID, SELFPAY | PROVIDERS: PCP Internal Medicine Geriatric Medicine; Visit Provider Nurse Practitioner Family | DX: M62.830 Muscle spasm of back (principal); M48.061 Spinal stenosis, lumbar region without neurogenic claudication; M47.817 Spondylosis without myelopathy or radiculopathy, lumbosacral region; M46.1 Sacroiliitis, not elsewhere classified; M53.3 Sacrococcygeal disorders, not elsewhere classified; M25.551 Pain in right hip | CPT/HCPCS: 99212 ==

== ENCOUNTER 2022-08-14 06:04 | Outpatient (REF) | payer MEDICAID, SELFPAY | END 2022-08-14 06:05 | disposition home or self-care (01) | LOC: CF 06:04 | PROVIDERS: Visit Provider Anesthesiology | DX: R10.9 Unspecified abdominal pain (principal); K42.9 Umbilical hernia without obstruction or gangrene; M48.061 Spinal stenosis, lumbar region without neurogenic claudication; K59.00 Constipation, unspecified; K57.92 Diverticulitis of intestine, part unspecified, without perforation or abscess without bleeding | CPT/HCPCS: J3301 ==

== ENCOUNTER 2022-08-14 10:56 | Outpatient (REF) | payer MEDICAID, SELFPAY ==
[2022-08-14 12:53] LABS: Blood Urea Nitrogen 15 mg/dL (9-16); Estimated Glomerular Filt Rate > 60
== END 2022-08-14 10:57 | disposition home or self-care (01) ==
LOC: HO.LAB 10:56
PROVIDERS: PCP Internal Medicine Geriatric Medicine; Visit Provider Nurse Practitioner Family
DX: R10.10 Upper abdominal pain, unspecified (principal); K42.9 Umbilical hernia without obstruction or gangrene; K21.9 Gastro-esophageal reflux disease without esophagitis; K59.04 Chronic idiopathic constipation
CPT/HCPCS: 36415; 82565; 84520; 99212

== ENCOUNTER 2022-09-03 09:21 | Outpatient (REF) | payer MEDICAID, SELFPAY | END 2022-09-03 09:22 | disposition home or self-care (01) | LOC: HO.CT 09:21 | PROVIDERS: PCP Internal Medicine Geriatric Medicine; Visit Provider Nurse Practitioner Family | DX: Z13.89 Encounter for screening for other disorder (principal) ==

== ENCOUNTER → 2022-09-11 09:52 | Outpatient (BNVA) | payer MEDICAID, SELFPAY | PROVIDERS: PCP Internal Medicine Geriatric Medicine; Referring Provider Internal Medicine Geriatric Medicine; Visit Provider Nurse Practitioner Family | DX: K42.9 Umbilical hernia without obstruction or gangrene (principal); R10.9 Unspecified abdominal pain; K21.9 Gastro-esophageal reflux disease without esophagitis; K59.04 Chronic idiopathic constipation; Z79.899 Other long term (current) drug therapy | CPT/HCPCS: 99212 ==

== ENCOUNTER 2022-09-13 07:42 | Outpatient (REF) | payer MEDICAID, SELFPAY ==
--- NOTE | ~2022-09-13 | CT_ITS ---
EXAMINATION: CT ABDOMEN AND PELVIS WITH CONTRAST CLINICAL INFORMATION: Abdominal pain. COMPARISON: 07/07/2020 TECHNIQUE: Multidetector volumetric images were obtained from the superior aspect of the liver through the pubic symphysis following administration 100 mL of Omnipaque 350 intravenous contrast. Sagittal and coronal reformatted images were obtained on the technologist's workstation. Oral contrast: Yes This CT examination was performed using dose optimization techniques as appropriate, variously including the following: *Automated exposure control *Adjustment of mA and/or kV according to patient size (this includes techniques or standardized protocols for targeted exams where dose is matched to indication/reason for exam; i.e. extremities or head) *Use of iterative reconstruction technique DLP: 1131 mGy-cm FINDINGS: LUNG BASES: The visualized lung bases are unremarkable. No pleural or pericardial effusion. Heart normal size. LIVER, GALLBLADDER, AND BILIARY TREE: The liver is normal in size, shape, and attenuation. No focal hepatic lesion or biliary ductal dilatation is present. The gallbladder is unremarkable with no evidence of radiopaque gallstones, gallbladder wall thickening, or obvious pericholecystic inflammatory changes. PANCREAS: Unremarkable. No abnormal mass or peripancreatic inflammatory change. SPLEEN: Unremarkable. ADRENAL GLANDS: Unremarkable. KIDNEYS AND URETERS: The kidneys are normal in size, shape, and attenuation. No hydronephrosis, hydroureter, or calculi seen. No perinephric stranding. BLADDER: Unremarkable. GASTROINTESTINAL TRACT: No dilated loops of large or small bowel are evident. No free air or free fluid is seen. No pericolonic inflammatory change. The appendix appears unremarkable. ABDOMINAL WALL: There is diastasis of the rectus muscles with loops of small bowel within the herniated region. No abnormal wall thickening or adjacent fat stranding. LYMPH NODES: There are multiple iliac chain and periaortic lymph nodes present but none which are pathologically enlarged. VASCULAR: Unremarkable. PELVIC VISCERA: Unremarkable. OSSEOUS STRUCTURES: No acute destructive bony lesion is identified. Vacuum disc phenomena is seen L2 through L5. Degenerative marginal spurring is seen about the thoracic spine. CT/CT abdomen pelvis w IV con IMPRESSION: Diastasis recti with loops of small bowel extending into the defect. Fleischner guidelines were followed.
[2022-09-13] MEDS: iohexoL 350 MG/ML 75 ML INFUS..BTL 100 ML IV (10:05)
[2022-09-13] MEDS: Barium Sulfate Oral (Vanilla) 450 ML ORAL.SUSP 900 ML PO (10:07)
== END 2022-09-13 07:43 | disposition home or self-care (01) ==
LOC: HO.CT 07:42
PROVIDERS: Visit Provider Nurse Practitioner Family
DX: R10.9 Unspecified abdominal pain (principal); K42.9 Umbilical hernia without obstruction or gangrene
CPT/HCPCS: 74177; 99212; Q9967

== ENCOUNTER 2022-10-08 06:05 | Day surgery (SDC) | payer MEDICAID, SELFPAY ==
[2022-10-02 15:10] VITALS: BMI 57.4
[2022-10-08] VITALS (14 sets, daily range): BP systolic 104–147; BP diastolic 50–83; PULSE 71–81; RESP 14–18; TEMP 36.1–37.2; O2SAT 94–99; BMI 56.5
[2022-10-08 07:17] LABS: COVID-19 Test Negative (Negative); IDNOW Serial# 08D9AD1C
--- NOTE | 2022-10-08 07:40 | MHC.SHP ---
Pre-Procedural Eval Section A Date of Service: 10/08/22 The patient is an INPATIENT: No Changes since office visit: Yes Patient answered all questions; No Cold of Flu in the past 2 weeks, No New Medical Problems and No Changes in Medication The History & Physical has been completed within 30 days and I have reviewed it.: Yes Section B Chief Complaint: Incisional hernia repair with mesh Allergies: Allergies Allergy/AdvReac Type Severity Reaction Status Date / Time No Known Allergies Allergy Verified 09/13/22 10:51 Plan Diagnosis/Plan: Unchanged I have reviewed the history and physical and performed a pertinent physical examination on my patient. No changes have occurred unless specified. Time Spent With Patient Time: Total time managing care of this patient today ____ minutes.
--- NOTE | 2022-10-08 08:27 | P.CONAN_ITS ---
HPI - Anesthesia Eval Consult details Narrative: 52 year old female morbid obesity and sleep apnea for inc [facility]niarepair [facility] Active Problems Active Problems: All Active Problems (Updated 10/02/22 @ 15:05 by Ifeoma Anglin RN) Right hip pain (Acute) Lumbosacral spondylosis (Acute) Sacroiliac joint dysfunction of right side (Acute) Sacroiliitis (Acute) Sacroiliac joint pain (Acute) Spinal stenosis at L4-L5 level (Acute) Muscle spasm of back (Acute) Incisional hernia (Acute) H/O ventral hernia repair (Acute) Past Medical History Medical History (Updated 10/02/22 @ 15:05 by Ifeoma Anglin RN) Acid reflux Anxiety Cardiomyopathy CHF (congestive heart failure) Depression Dizziness Glaucoma Heartburn Hernia, umbilical HTN (hypertension) Knee pain Long QT interval Morbid obesity CHACORTA on CPAP Panic attack Family History Family history of problems with anesthesia: No Surgical History Surgical History (Updated 10/02/22 @ 14:39 by Ifeoma Anglin RN) H/O ventral hernia repair History of hysterectomy Hx of colonoscopy Hx of umbilical hernia repair History of Problems with Anesthesia: No Social History Social History Are you a primary post anesthesia care unit nurse to a significant other at home: No Do you presently have visiting nurse or other home services: No Alcohol intake: never Patient Tobacco Use Status: Former Tobacco user Quit Date: 2021 Tobacco use type: Cigarette Use of substances other than those prescribed or required for medical reasons: No Have you been hit, kicked, punched, or otherwise hurt by someone within the past year? If so, by whom?: No Are you DNR?: No Advance Directives: No Advance Directives Information Provided: Yes Advance Directives on File: No Recently lost weight without trying: No Eating poorly because of decreased appetite: No Nutrition Risks: No Nutritional Risk Meds Allergies Allergy/AdvReac Type Severity Reaction Status Date / Time No Known Allergies Allergy Verified 09/13/22 10:51 Active Medications: Current Medications Lactated Ringer's (Lr) 1,000 mls @ 100 mls/hr IVCONT .Q10H [facility] Home Medications Medication Instructions Recorded Confirmed Last Taken Type atorvastatin 20 mg tablet 20 mg PO DAILY 07/08/20 10/02/22 10/07/22 History carvedilol 25 mg tablet (Coreg) 25 mg PO BID 07/08/20 10/02/22 10/08/22 History clonazepam 0.5 mg tablet 0.5 mg PO DAILY 07/08/20 10/02/22 10/07/22 History hydrochlorothiazide 25 mg tablet 25 mg PO DAILY 07/08/20 10/02/22 10/07/22 History melatonin 10 mg capsule 20 mg PO BEDTIME 07/08/20 10/02/22 10/07/22 History omeprazole 20 mg capsule,delayed 20 mg PO BID 07/08/20 10/02/22 10/08/22 History release hydralazine 25 mg tablet 25 mg PO BID 11/28/21 10/02/22 10/08/22 History losartan 50 mg tablet 100 mg PO DAILY 11/28/21 10/02/22 10/07/22 History acetaminophen 650 mg 1,300 mg PO Q6-8H PRN Pain 12/21/21 10/02/22 10/07/22 History tablet,extended release sertraline 100 mg tablet 2 tab PO QAM 10/08/22 Unknown History Exam Exam Date and Time: October 08, 2022 0827 Height,Weight and Vital Signs: Height 5 ft 5 in Weight 156.489 kg Last Vital Signs Temp 97.0 F 10/08/22 06:42 Pulse 78 10/08/22 06:42 Resp 18 10/08/22 06:42 BP 112/50 L 10/08/22 06:42 Pulse Ox 98 10/08/22 06:42 O2 Del Method 10/08/22 06:42 Pertinent Lab Results Pertinent Lab Results: Laboratory Tests 10/08/22 06:15 COVID-19 ([facility]) Negative COVID-19 Clin Com See Note Airway Mallampati Class: III TM Dist: <=3cm Neck ROM: Full Loose/Missing/Broken Teeth: Yes, Upper and Lower Heart: rrr Lungs: cta Assessment and Plan Assessment Anesthesia Assessment: Anesthesia Plan Discussed and Chart Reviewed Final Anesthetic Review Family History of Problems with Anesthesia: No History of Problems with Anesthesia: No ASA Class: III Final Preanesthetic Review: No Changes in Pt Med Stat, Meds/Allgs Chart R eviewed, Consent Obtained/Reviewed and Anes Risks/Benef Reviewed Patient Risk: Intermediate Procedure Risk: Intermediate Anesthetic Plan Anesthetic Plan: GA, Regional Block (Rectus sheath) and Agree w/ Assess. and Plan Disposition: Standard PACU
--- NOTE | 2022-10-08 09:36 | P.OP_ITS ---
Operative Note Operative Note Date of Service: 10/08/22 Narrative: Preoperative diagnosis:Incisional hernia, 11 cm Postoperative diagnosis: same Procedure: repair of incisional hernia with mesh, 11 cm diameter Surgeon: Daryl Barba MD Paper Production Engineer: Aishwarya Shah PA-C Anesthesia: general endotracheal Indications for procedure: 52-year-old female with a previous history of an umbilical hernia repair mesh followed by hysterectomy now with a large incisional hernia in the periumbilical region. Operative findings: 11 cm incisional hernia and periumbilical location with previous repair noted. Incarcerated omentum and bowel noted within the hernia sac. Specimen: None Estimated blood loss: 25 mL Complications: none Procedure details: patient was brought to the OR placed in a supine position. After administering general anesthesia the patient's abdomen was prepped with ChloraPrep and draped in a sterile fashion. A surgical time-out was called the consent confirmed. Patient received preoperative antibiotics and Venodyne boots were placed. Local anesthesia consisting of Sensorcaine 0.5% with epinephrine was infiltrated in the midline over the hernia. Incision was made around the umbilicus in the midline carried out through subcutaneous tissue up to the hernia sac. The hernia sac was then dissected using a combination of sharp dissection and electrocautery down to the fascial edge. The sac was then entered and the adherent omentum and small bowel lysed off the peritoneal surfaces. The bowel was returned to the abdominal cavity. Hernia was measured at approximately 11 cm at the fascial edge. The fascial edge was further defined using electrocautery and blunt dissection and a preperitoneal space created below the rectus muscle. The peritoneum was closed using a running 0 Polysorb suture. Ventrio mesh measuring 13 x 17 cm was then obtained. This was deployed into the preperitoneal space. This was secured at 4 quadrants using a 1 Tycron suture. Additional Tycron sutures were placed in between circumferentially. The mesh was also tacked using absorbable Tacker. Fascia was then closed over the mesh using [id number] 1 Tycron sutures including the mesh in the closure. The fascia was closed transversely and the fascia easily reapproximated. Wounds were then irrigated with saline solution and suctioned dry. 10 mL of Zenrelef was then infiltrated over the mesh and below the fascia. Subcutaneous tissue and umbilical skin was then reapproximated using interrupted 3-0 Polysorb sutures. Skin was then closed using a running subcuticular 4-0 Polysorb suture. Steri-Strips, 2 x 2 gauze and Tegaderm were then applied. The patient tolerated the procedure well. A tap block was applied by the anesthesia department following the procedure. She was transferred to PACU in stable condition. Sponge, instrument, and needle counts were reported as correct.
[2022-10-08] MEDS: Dextrose 5 % and Lactated Ring 1,000 ML 125 ML IVCONT ×2 (10:39→19:00)
[2022-10-08 12:10] LABS: Estimated Glomerular Filt Rate > 60
[2022-10-08] MEDS: Acetaminophen 1,000 MG/100 ML PIGGYBACK 400 MG IV ×3 (12:15→20:01)
[2022-10-08] MEDS: Enoxaparin Sodium 40 MG/0.4 ML SYRINGE SUBCUT (12:16)
[2022-10-08] MEDS: Sertraline HCL 100 MG TABLET 200 MG PO (13:52)
[2022-10-08] MEDS: Omeprazole 20 MG CAPSULE.DR PO (15:25)
[2022-10-08] MEDS: Sennosides 8.6 MG TABLET PO (20:00)
[2022-10-08] MEDS: carvediloL 25 MG TABLET PO (20:00)
[2022-10-08] MEDS: hydrALAZINE HCl 25 MG TABLET PO (20:00)
[2022-10-09] MEDS: Dextrose 5 % and Lactated Ring 1,000 ML 125 ML IVCONT (01:29)
[2022-10-09 03:40] VITALS: BP 114/53; PULSE 73; RESP 16; TEMP 37.6; O2SAT 95
[2022-10-09] MEDS: HYDROmorphone HCl 0.5 MG/0.5 ML SYRINGE IVPUSH (04:18)
[2022-10-09] MEDS: Acetaminophen 1,000 MG/100 ML PIGGYBACK 400 MG IV (04:31)
[2022-10-09] MEDS: Omeprazole 20 MG CAPSULE.DR PO (05:19)
[2022-10-09 07:39] VITALS: BP 103/55; PULSE 71; RESP 17; TEMP 36.5; O2SAT 97
--- NOTE | 2022-10-09 08:04 | P.PNGS_ITS ---
Subjective Subjective Date of Service: 10/09/22 Interval history: Pod 1 following repair of a large incisional hernia. She reports feeling comfortable with minimal incisional pain at this time. She tolerated regular diet without nausea or vomiting. Physical Exam Vital Signs: Vital Signs: Last Vital Signs Temp 97.7 F 10/09/22 07:39 Pulse 71 10/09/22 07:39 Resp 17 10/09/22 07:39 BP 103/55 L 10/09/22 07:39 Pulse Ox 97 10/09/22 07:39 O2 Del Method 10/09/22 07:39 O2 Flow Rate 2 10/08/22 11:00 BMI result Body Mass Index 56.5 Const: General: no acute distress and well developed Nutritional Appearance: well nourished Orientation/consciousness: patient oriented x3 Limitations: no limitations Resp: Effort & Inspection: normal respiratory effort GI: Other: Abdominal binder with blood staining. Incision clean, dry, and intact without redness or discharge. Serosanguineous discharge noted under Tegaderm which was previously changed. Palpation (GI): Soft to palpation Percussion: Yes normal to percussion Auscultation: normal bowel sounds Skin: General skin exam: no rashes or lesions noted Neuro: General: patient oriented x3 Extrem: General: Yes no clubbing, cyanosis or edema Objective Data Active Medications Atorvastatin Calcium (Atorvastatin Calcium 20 Mg Tablet) 20 mg PO DAILY [facility] Carvedilol (Carvedilol 25 Mg Tablet) 25 mg PO BID [facility]; Protocol Last Admin: 10/08/22 20:00 Dose: 25 mg Documented By: MICHAEL Celecoxib (Celecoxib 200 Mg Capsule) 200 mg PO BID PRN PRN Reason: for pain Clonazepam (Clonazepam 0.5 Mg Tablet) 0.5 mg PO DAILY [facility] Cyclobenzaprine HCl (Cyclobenzaprine Hcl 10 Mg Tablet) 10 mg PO Q12H PRN PRN Reason: for muscle spasm Enoxaparin Sodium (Enoxaparin Sodium 40 Mg/0.4 Ml Syringe) 40 mg SUBCUT Q24H [facility] Last Admin: 10/08/22 12:16 Dose: 40 mg Documented By: LIZY Fentanyl (Fentanyl Citrate/Pf 100 Mcg/2 Ml Vial) 25 mcg IVPUSH Q5M PRN; Protocol PRN Reason: Pain, Moderate (Pain Scale 4-6 Hydralazine HCl (Hydralazine Hcl 25 Mg Tablet) 25 mg PO BID [facility]; Protocol Last Admin: 10/08/22 20:00 Dose: 25 mg Documented By: MICHAEL Hydrochlorothiazide (Hydrochlorothiazide 25 Mg Tablet) 25 mg PO DAILY [facility]; Protocol Hydromorphone HCl (Hydromorphone Hcl 0.5 Mg/0.5 Ml Syringe) 0.5 mg IVPUSH Q3H PRN; Protocol PRN Reason: Pain, Severe (Pain Scale 7-10) Last Admin: 10/09/22 04:18 Dose: 0.5 mg Documented By: MICHAEL Dextrose/Lactated Ringer's (D5lr) 1,000 mls @ 125 mls/hr IVCONT .Q8H [facility] Last Admin: 10/09/22 01:29 Dose: 125 mls/hr Documented By: MICHAEL Losartan Potassium (Losartan Potassium 50 Mg Tablet) 100 mg PO DAILY [facility]; Protocol Melatonin (Melatonin 3 Mg Tablet) 18 mg PO BEDTIME PRN PRN Reason: Insomnia Omeprazole (Omeprazole 20 Mg Capsule.Dr) 20 mg PO BID@0630,1630 [facility] Last Admin: 10/09/22 05:19 Dose: 20 mg Documented By: MICHAEL Ondansetron HCl (Ondansetron Hcl 4 Mg/2 Ml Vial) 4 mg IVPUSH QID PRN PRN Reason: Nausea Ondansetron HCl (Ondansetron Hcl 4 Mg/2 Ml Vial) 4 mg IVPUSH ONCE PRN PRN Reason: Nausea and Vomiting Oxycodone HCl (Oxycodone Hcl Immed Release 5 Mg Tablet) 5 mg PO Q6H PRN PRN Reason: Pain, Moderate (Pain Scale 4-6 Oxycodone HCl (Oxycodone Hcl Immed Release 5 Mg Tablet) 10 mg PO ONCE PRN PRN Reason: Pain, Severe (Pain Scale 7-10) Polyethylene Glycol (Polyethylene Glycol 3350 17 Gm Powd.Pack) 17 gm PO DAILY [facility] Senna (Sennosides 8.6 Mg Tablet) 8.6 mg PO BEDTIME [facility] Last Admin: 10/08/22 20:00 Dose: 8.6 mg Documented By: MICHAEL Sertraline HCl (Sertraline Hcl 100 Mg Tablet) 200 mg PO DAILY [facility] Last Admin: 10/08/22 13:52 Dose: 200 mg Documented By: LIZY Sodium Chloride (0.9 % Sodium Chloride Flush 3 Ml Syringe) 3 ml IVFLUSH QSHIFT [facility] Last Admin: 10/08/22 22:30 Dose: Not Given Documented By: MICHAEL Non-Admin Reason: IV Running Zolpidem Tartrate (Zolpidem Tartrate 5 Mg Tablet) 5 mg PO BEDTIME PRN PRN Reason: Insomnia Labs 10/08/22 11:02 Labs: Laboratory Results - last 24 hr 10/08/22 11:02 Estim Creat Clear Calc 121.0 Estimated GFR > 60 Procedures Date of Service Date of Service: 10/09/22 Progress Note: A&P Assessment and plan (1) Incisional hernia: Status: Acute (2) H/O ventral hernia repair: Status: Acute Plan Pod 1 following repair of an incisional hernia with mesh. She tolerated the procedure well and remains reasonably comfortable this morning. She is tolerating regular diet without nausea or vomiting. Will check back later for probable discharge to home. Time Spent With Patient Time: Total time managing care of this patient today ____ minutes. Quality Stroke Does the patient have a stroke diagnosis?: No VTE Prior VTE?: No VTE Risk Level:: Surgical - high VTE Device Contraindication: N/A - Device Ordered VTE Drug Contraindication: N/A - Med Ordered
[2022-10-09] MEDS: hydroCHLOROthiazide 25 MG TABLET PO (08:26)
[2022-10-09] MEDS: Atorvastatin Calcium 20 MG TABLET PO (08:26)
[2022-10-09] MEDS: clonazePAM 0.5 MG TABLET PO (08:26)
[2022-10-09] MEDS: carvediloL 25 MG TABLET PO (08:26)
[2022-10-09] MEDS: polyethylene glycoL 3350 17 GM POWD.PACK PO (08:26)
[2022-10-09] MEDS: Sertraline HCL 100 MG TABLET 200 MG PO (08:26)
[2022-10-09] MEDS: oxyCODONE HCl Immed Release 5 MG TABLET PO (09:42)
[2022-10-09] MEDS: Enoxaparin Sodium 40 MG/0.4 ML SYRINGE SUBCUT (09:43)
[2022-10-09 10:01] VITALS: O2SAT 99
[2022-10-09 11:28] VITALS: BP 98/49; PULSE 73; RESP 17; TEMP 36.4; O2SAT 98
--- NOTE | 2022-10-09 12:04 | HO.POSTANES ---
Post Anesthesia Evaluation Post Anesthesia Evaluation Vital Signs: Vital Signs Temp Pulse Resp BP Pulse Ox O2 Del Method 10/09/22 11:28 97.5 F 73 17 98/49 L 98 Room Air 10/09/22 10:01 99 Room Air 10/09/22 07:39 97.7 F 71 17 103/55 L 97 Room Air 10/09/22 03:40 99.6 F 73 16 114/53 L 95 Room Air Anesthesia: General Mental Status: Awake Pain Control: Satisfactory Nausea/Vomiting: None Hydration: Adequate Anesthesia-Related Issues: No Anes. Related Issues
--- NOTE | 2022-10-09 12:48 | MHC.CM.PN ---
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
--- NOTE | 2022-10-09 13:08 | MHC.CM.PN ---
PATIENT IS DC HOME - SELF CARE RN AWARE OF PLAN.
--- NOTE | 2022-10-12 15:37 | PM.DS ---
DS: Providers Provider Date of Service: 10/09/22 Date of admission: 10/08/2022 Date of discharge: 10/09/22 Primary care physician: Eusebio Ramey MD Admitting clinician: Daryl Barba Discharging clinician: Daryl Barba DS: Diagnosis Discharge Diagnosis (1) Incisional hernia: Status: Acute (2) H/O ventral hernia repair: Status: Acute DS: Summary Hospital Course Hospital Course: 52-year-old female patient with a prior history of umbilical hernia repair now returning following recent hysterectomy performed at [facility].? She now reports a recurrent lump around the umbilicus at the upper portion of her midline incision.? She reports some discomfort associated with this lump in feels the lump increases when she stands but does reduce in supine position.? She denies any nausea, vomiting, fever, chills, constipation or diarrhea.? A CT abdomen and pelvis was performed and revealed an incisional hernia around the umbilicus with evidence of diastasis recti.? The hernia sac this contained bowel but there is no evidence of obstruction or inflammation.? Patient is requesting repair of this incisional hernia. ? On examination the patient is found to have a large incisional hernia in the mid abdomen around the umbilicus. Hernia is not reducible and is at least 11 cm in diameter with incarcerated bowel . The hernia increases in size with Valsalva maneuvers and reduces with light pressure but does not completely reduced. I recommended repair of this large incisional hernia with mesh. She was brought in as a short-stay surgery on 10/08/2022 for repair of the large incisional hernia. Operative findings were consistent with a large incisional hernia measuring approximately 10-11 cm in diameter with incarcerated bowel and omentum. This was repaired using a large Ventrio mesh. She underwent a tap block by anesthesia following the procedure. She underwent an extended recovery. On postop day 1 the patient felt comfortable with no significant abdominal pain other than some mild incisional pain. She was up ambulating without difficulty. She was able to tolerate a regular diet without nausea or vomiting. She felt comfortable to go home and she was subsequently discharged on 10/09/2022. Discharge instructions were to avoid lifting greater than 10 lb for the next month. She should avoid driving for the next week. She will return to the office in 1 week for wound examination but should call sooner for any new concerns. Time spent discussing smoking cessation with patient: 3 to 10 minutes Status at Discharge Functional status at discharge: independent ambulation Overall status at discharge: patient is progressing back to baseline Time Spent with Patient Time attestation: Total time managing care of this patient today __25__ minutes. Discharge coordination time: Less than 30 minutes Quality: Safe Use of Opioids Does Pt have an Active Cancer Diagnosis on the Problem List?: No Quality: Stroke Does the patient have a stroke diagnosis?: No Physical Exam Vital Signs: Vital Signs: Last Vital Signs Temp 97.5 F 10/09/22 11:28 Pulse 73 10/09/22 11:28 Resp 17 10/09/22 11:28 BP 98/49 L 10/09/22 11:28 Pulse Ox 98 10/09/22 11:28 O2 Del Method 10/09/22 11:28 O2 Flow Rate 2 10/08/22 11:00 BMI result Body Mass Index 56.5 Const: General: no acute distress and well developed Nutritional Appearance: well nourished Orientation/consciousness: patient oriented x3 Limitations: no limitations Resp: Effort & Inspection: normal respiratory effort GI: Other: Abdominal binder with blood staining. Incision clean, dry, and intact without redness or discharge. Serosanguineous discharge noted under Tegaderm which was previously changed. Palpation (GI): Soft to palpation Percussion: Yes normal to percussion Auscultation: normal bowel sounds Skin: General skin exam: no rashes or lesions noted Neuro: General: patient oriented x3 Extrem: General: Yes no clubbing, cyanosis or edema Discharge Plan Discharge Patient Disposition: Home, Self-Care Referrals: Daryl Barba MD [Physician] - 1 Week Name,MD Eusebio [Primary Care Provider] - 1 Week Discharge Medications: New oxycodone 5 mg tablet 5 mg PO Q4H PRN (Reason: pain (scale score 7-10)) Qty: 26 0RF Rx Instructions: Partial Fill upon patient request. Continued celecoxib 200 mg capsule 200 mg PO BID PRN (Reason: for pain) Qty: 60 0RF methocarbamol 750 mg tablet 750 mg PO Q12H PRN (Reason: for muscle spasm) Qty: 60 1RF carvedilol [Coreg] 25 mg Tablet 25 mg PO BID atorvastatin 20 mg Tablet 20 mg PO DAILY clonazepam 0.5 mg Tablet 0.5 mg PO DAILY omeprazole 20 mg Capsule,Delayed Release(Dr/Ec) 20 mg PO BID hydrochlorothiazide 25 mg Tablet 25 mg PO DAILY melatonin 10 mg Capsule 20 mg PO BEDTIME sertraline 100 mg tablet 2 tab PO QAM losartan 50 mg tablet 100 mg PO DAILY hydralazine 25 mg tablet 25 mg PO BID acetaminophen 650 mg tablet extended release 1,300 mg PO Q6-8H PRN (Reason: Pain) polyethylene glycol 3350 [Miralax] 17 gram/dose powder 17 g PO DAILY Qty: 510 2RF sennosides [Natural Senna Laxative] 8.6 mg tablet 8.6 mg PO BEDTIME Qty: 90 3RF Discharge Orders: Discharge Order (Routine); Ordered 10/09/22 Ordered By: Daryl Barba Diet: Advance to usual diet Activity on Discharge: No heavy lifting Activity Restrictions/Additional Instructions: If the incision area is tender, you may apply an ice pack for short intervals (No more than 20 minutes on, followed by at least 20 minutes off). Do not apply heat. Do not use creams, lotions, or topical antibiotics unless instructed to do so by your surgeon. These can cause infection or allergic reaction. Ok to shower. You have shruthi closing your incision and these will be removed approximately 10-14 days after surgery. NO HEAVY LIFTING (>10lbs) or strenuous activity. Follow up in office. ([phone]) Call Your Doctor If: -Your temperature exceeds 101.5? F -You experience excessive pain or swelling -You have an unexpected reaction to medication -You have excessive bleeding -You experience continued vomiting/nausea -Your incision begins to separate -Your incision shows signs of infection such as increased redness, swelling, excessive pain, drainage (light blood or clear fluid is normal) or heat Discharge Date/Time: 10/09/22 13:47
== END 2022-10-09 13:47 | disposition home or self-care (01) ==
LOC: HO.SSS 06:06 → HO.S3 10:43
PROVIDERS: PCP Internal Medicine Geriatric Medicine; Visit Provider Surgery
PROC: (CPT 49596; principal; 2022-10-08 07:30)
DX: K43.0 Incisional hernia with obstruction, without gangrene (principal); Z87.19 Personal history of other diseases of the digestive system; Z90.710 Acquired absence of both cervix and uterus; Z98.890 Other specified postprocedural states; Z20.822 Contact with and (suspected) exposure to COVID-19; K21.9 Gastro-esophageal reflux disease without esophagitis; I11.0 Hypertensive heart disease with heart failure; I50.9 Heart failure, unspecified; I42.9 Cardiomyopathy, unspecified; E66.01 Morbid (severe) obesity due to excess calories; Z68.43 Body mass index [BMI] 50.0-59.9, adult; Z79.899 Other long term (current) drug therapy; Z87.891 Personal history of nicotine dependence
CPT/HCPCS: 49596; 36415; 82565; 87635; C1781; C9088; J0131; J0330; J0690; J1170; J1650; J2370; J2795; J3010

== ENCOUNTER → 2022-10-16 12:42 | Outpatient (BNVA) | payer MEDICAID, SELFPAY | PROVIDERS: PCP Internal Medicine Geriatric Medicine; Referring Provider Internal Medicine Geriatric Medicine; Visit Provider Surgery | DX: Z48.815 Encounter for surgical aftercare following surgery on the digestive system (principal) | CPT/HCPCS: 99211 ==

== ENCOUNTER → 2022-10-18 12:49 | Outpatient (BNVA) | payer MEDICAID, SELFPAY | PROVIDERS: PCP Internal Medicine Geriatric Medicine; Visit Provider Physician Assistant Surgical | DX: K43.2 Incisional hernia without obstruction or gangrene (principal); K42.9 Umbilical hernia without obstruction or gangrene; E66.01 Morbid (severe) obesity due to excess calories; Z68.43 Body mass index [BMI] 50.0-59.9, adult; Z98.890 Other specified postprocedural states; Z09 Encounter for follow-up examination after completed treatment for conditions other than malignant neoplasm | CPT/HCPCS: 99212 ==

== ENCOUNTER → 2022-10-22 09:31 | Outpatient (BNVA) | payer MEDICAID, SELFPAY | PROVIDERS: PCP Internal Medicine Geriatric Medicine; Referring Provider Internal Medicine Geriatric Medicine; Visit Provider Surgery | DX: Z13.89 Encounter for screening for other disorder (principal) ==

== ENCOUNTER → 2022-11-12 11:49 | Outpatient (BNVA) | payer MEDICAID, SELFPAY | PROVIDERS: PCP Internal Medicine Geriatric Medicine; Visit Provider Nurse Practitioner Family | DX: K59.04 Chronic idiopathic constipation (principal); K58.1 Irritable bowel syndrome with constipation | CPT/HCPCS: 99212 ==

== ENCOUNTER → 2022-11-15 08:37 | Outpatient (BNVA) | payer MEDICAID, SELFPAY | PROVIDERS: PCP Internal Medicine Geriatric Medicine; Visit Provider Physician Assistant Surgical | DX: Z13.89 Encounter for screening for other disorder (principal) ==

== ENCOUNTER 2022-12-26 11:32 | Outpatient (REF) | payer MEDICAID, SELFPAY ==
--- NOTE | ~2022-12-26 | MM_ITS ---
EXAMINATION: MM SCREENING DIGITAL BREAST TOMOSYNTHESIS, BILATERAL CLINICAL INFORMATION: Screening. Asymptomatic. The lifetime risk of breast cancer based on the Tyrer-Cuzick Model is 11%. COMPARISON: Mammography: 12/01/2021, 11/22/2020, 07/27/2019 TECHNIQUE: Digital breast tomosynthesis is performed in both the craniocaudal and mediolateral oblique views along with computer-aided detection (CAD). Synthesized 2D images are generated from the tomosynthesis. Additional right MLO view is provided. FINDINGS: There are scattered areas of fibroglandular density (ACR BI-RADS breast composition Category b). There are no significant masses, abnormal calcifications, or other abnormalities. Parenchymal pattern is similar to prior studies. There is no developing density or architectural abnormality. The axilla are stable. Low left axillary tail node is similar to prior studies. Skin contours are unremarkable. No significant changes. MM/MM tomosynthesis screening BI IMPRESSION: No mammographic evidence of malignancy. ASSESSMENT: BI-RADS 2: Benign RECOMMENDATION: Routine annual mammography screening. This patient's information was entered into a reminder system with a target due date for their next mammogram.
== END 2022-12-26 11:33 | disposition home or self-care (01) ==
LOC: HO.MAMMO 11:32
PROVIDERS: Visit Provider Internal Medicine Geriatric Medicine
DX: Z12.31 Encounter for screening mammogram for malignant neoplasm of breast (principal)
CPT/HCPCS: 77063; 77067

== ENCOUNTER 2023-04-10 07:18 | Outpatient (REF) | payer MEDICAID, SELFPAY ==
[2023-04-10 08:04] LABS: Estimated Average Glucose 114 mg/dL; Hemoglobin A1c % 5.6 %
[2023-04-10 08:56] LABS: Anion Gap 11 (12-20); Blood Urea Nitrogen 23 mg/dL (9-16); Calcium 9.8 mg/dL (8.4-10.2); Carbon Dioxide 30 mmol/L (22-29); Chloride 102 mmol/L (96-108); Estimated Glomerular Filt Rate > 60; Glucose Random 106 mg/dL (60-115); Potassium 3.4 mmol/L (3.3-5.1); Sodium 140 mmol/L (135-145)
== END 2023-04-10 07:19 | disposition home or self-care (01) ==
LOC: HO.LAB 07:18
PROVIDERS: PCP Internal Medicine Geriatric Medicine; Visit Provider Internal Medicine Geriatric Medicine
DX: Z13.1 Encounter for screening for diabetes mellitus (principal); E66.01 Morbid (severe) obesity due to excess calories
CPT/HCPCS: 36415; 80048; 83036

== ENCOUNTER 2023-04-29 10:17 | Outpatient (AMB) | payer MEDICAID, SELFPAY ==
[2023-04-29 10:25] VITALS: BP 126/68; PULSE 71; BMI 58.5
--- NOTE | 2023-04-29 10:25 | MHC.OFFVIS ---
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 I will increase Senokot to 2 tablets every night. Patient will call me if she will have any trouble moving her bowels. Patient was instructed if she will have abdominal cramping to call us so we can change to different medication like Linzess. IBS (irritable bowel syndrome) Discussed with patient avoiding dietary triggers in late night snacking. Discussed with her also low FODMAP diet. Patient was encouraged to increase fluids and activity to promote better bowel motility. Patient was also encouraged to lose weight. Recent history of large umbilical hernia repair without any complications. I will see patient in 6 months, sooner on as needed basis. Patient is agreeable to this plan and verbalizes understanding of instructions. She was given the opportunity to ask questions and all questions answered. ? Thank you for allowing me to participate in her care Plan Medications Changed From sennosides 8.6 mg PO BEDTIME 90 tabs 3RF constipation K59.00 To sennosides (Natural Senna Laxative) 17.2 mg (2 x 8.6 mg) PO BEDTIME 180 tabs 3RF constipation K59.00 Refilled polyethylene glycol 3350 (Miralax) 17 grams PO DAILY 510 grams 2RF TODAY'S VISIT Patient is here today for follow-up. Patient reports that since the last time I have seen her she has been doing better. She is moving her bowels better. She is taking Senokot at bedtime. Patient reports no longer taking MiraLax. Occasionally patient reports to have epigastric discomfort without dyspepsia, dysphagia or odynophagia. Patient denies melena, hematochezia, unintentional weight loss or ribbon like stools. Patient reports that she has been feeling well denies any GI concerning symptoms. [facility] Medical History Acid reflux Anxiety Cardiomyopathy CHF (congestive heart failure) Depression Dizziness Glaucoma Heartburn Hernia, umbilical HTN (hypertension) Incisional hernia Knee pain Long QT interval Morbid obesity CHACORTA on CPAP Panic attack Surgical History H/O ventral hernia repair History of hysterectomy History of umbilical hernia repair (10/08/22) Hx of colonoscopy Hx of umbilical hernia repair Social History Are you a primary small animal caretaker to a significant other at home: No Do you presently have visiting nurse or other home services: No Alcohol intake: never Patient Tobacco Use Status: Former Tobacco user Quit Date: 2021 Tobacco use type: Cigarette Review of Systems Const Denies weight gain and Denies weight loss ENT Reports no additional complaints, Denies dysphagia and Denies odynophagia Card Reports no additional complaints Resp Reports no additional complaints GI Denies abdominal pain, Denies belching, Denies melena, Denies bloating, Denies change in bowel habits, Denies dysphagia, Denies excessive flatus, Denies dyspepsia, Reports heartburn, Denies diarrhea, Denies loose stools, Denies nausea, Denies odynophagia and Denies vomiting Reports no additional complaints Musc Reports no additional complaints Neuro Reports no additional complaints Psych Reports no additional complaints Endo Reports no additional complaints Physical Exam Vital Signs: Last Vital Signs Pulse 71 04/29/23 10:25 BP 126/68 04/29/23 10:25 BMI result Body Mass Index 58.5 Const General: healthy appearing, no acute distress and well developed Nutritional Appearance: obese Orientation/consciousness: patient oriented x3 HEENT Head: Yes normal to inspection, Yes normocephalic and Yes atraumatic Face and sinus: Yes normal facial exam Mouth: Normal oral and palatal mucosa present Throat: Yes posterior oropharynx normal, Yes tonsils normal and Yes uvula midline Eyes General: appearance normal, both eyes and all related structures Neck Neck: Yes normal visual inspection, Yes full ROM and Yes trachea midline Thyroid: Thyroid normal Resp Effort & Inspection: normal respiratory effort, able to speak in complete sentences, no tracheal deviation and symmetric chest movement Auscultation: clear to auscultation bilaterally Cardio Rate: regular rate Heart sounds: S1 normal heart sound present and S2 normal heart sound present GI Inspection: Yes normal to inspection, No distended and Yes obesity Palpation (GI): Soft to palpation, not firm, nontender and No hepatosplenomegaly present Auscultation: normal bowel sounds General: Yes no CVA tenderness Back/Spine/Pelvis Back: no CVA tenderness Skin General skin exam: elasticity normal, turgor normal and dry skin Neuro General: patient oriented x3 Psych Appearance: grossly normal Mental Status: mental status grossly normal Speech and movement: Normal speech and movement present Assessment & Plan Assessment & Plan (1) Chronic idiopathic constipation: Code(s): K59.04 - Chronic idiopathic constipation Plan: Continue Senokot. Patient was also encouraged to increase fluid intake and activity to promote better bowel motility. (2) IBS (irritable bowel syndrome): Code(s): K58.9 - Irritable bowel syndrome without diarrhea Qualifiers: Irritable bowel syndrome type: without diarrhea Qualified Code(s): K58.9 - Irritable bowel syndrome without diarrhea Plan: Continue low FODMAP diet. Patient was also encouraged to lose weight. Increase fluid intake and activity to promote better bowel motility. (3) GERD (gastroesophageal reflux disease): Code(s): K21.9 - Gastro-esophageal reflux disease without esophagitis Qualifiers: Esophagitis presence: esophagitis presence not specified Qualified Code(s): K21.9 - Gastro-esophageal reflux disease without esophagitis Plan: Omeprazole 20 mg half an hour before breakfast and half an hour before dinner. Discussed with patient triggers and late night snacking. Staying upright for minimum 3 hours after meals discussed with patient. I will see patient in 6 months, sooner on as needed basis. Patient is agreeable to this plan and verbalizes understanding of instructions. She was given the opportunity to ask questions and all questions answered. Thank you for allowing me to participate in her care Medications: New omeprazole 20 mg PO BID 180 caps 0RF Refilled sennosides (Natural Senna Laxative) 17.2 mg (2 x 8.6 mg) PO BEDTIME 180 tabs 3RF constipation K59.00 - Constipation, unspecified Discontinued polyethylene glycol 3350 Discontinued Reason: Patient no longer taking 17 grams PO DAILY 510 grams 2RF Coding Level of Care Code Est Pt Level 3 (93802) Diagnoses Chronic idiopathic constipation K59.04 IBS (irritable bowel syndrome) K58.9 Irritable bowel syndrome type: without diarrhea GERD (gastroesophageal reflux disease) K21.9 Esophagitis presence: esophagitis presence not specified Time Spent (min) 25 Comment 15 minutes spent with patient and additional 10 minutes spent reviewing her records
== END 2023-04-29 11:10 | disposition home or self-care (01) ==
PROVIDERS: PCP Internal Medicine Geriatric Medicine; Visit Provider Nurse Practitioner Family
DX: K59.04 Chronic idiopathic constipation (principal); K58.9 Irritable bowel syndrome, unspecified; K21.9 Gastro-esophageal reflux disease without esophagitis
CPT/HCPCS: 99213

== ENCOUNTER → 2023-04-29 10:17 | Outpatient (BNVA) | payer MEDICAID, SELFPAY | PROVIDERS: PCP Internal Medicine Geriatric Medicine; Visit Provider Nurse Practitioner Family | DX: K59.04 Chronic idiopathic constipation (principal); K58.9 Irritable bowel syndrome, unspecified; K21.9 Gastro-esophageal reflux disease without esophagitis; E66.01 Morbid (severe) obesity due to excess calories; G47.33 Obstructive sleep apnea (adult) (pediatric); Z68.43 Body mass index [BMI] 50.0-59.9, adult; Z99.89 Dependence on other enabling machines and devices | CPT/HCPCS: 99213 ==

== ENCOUNTER 2023-10-28 07:39 | Day surgery (SDC) | payer MEDICAID, SELFPAY ==
[2023-10-24 12:33] VITALS: BMI 58.7
--- NOTE | 2023-10-25 07:50 | MHC.SHP ---
Pre-Procedural Eval Section A - 24 Hr Update-Section A only Date of Service: 10/28/23 The patient is an INPATIENT: No Changes since office visit: No Cold of Flu in the past 2 weeks, No New Medical Problems, No Changes in Medication and No Patient answered all questions The patient has been examined within 24 hours of the surgical procedure. The History & Physical has been completed within 30 days and I have reviewed it.: Yes Section B - Complete if H&P > 30 days Chief Complaint: Age-related nuclear cataract, left eye Allergies: Allergies Allergy/AdvReac Type Severity Reaction Status Date / Time No Known Allergies Allergy Verified 04/29/23 10:28 Plan Diagnosis/Plan: Unchanged I have reviewed the history and physical and performed a pertinent physical examination on my patient. No changes have occurred unless specified. Time Spent With Patient Time: Total time managing care of this patient today ____ minutes.
--- NOTE | 2023-10-25 08:41 | HO.ANESPROP2 ---
Documented by User: Ban Hare NP 10/25/23 08:42 HPI - Anesthesia Eval Consult details Narrative: 53yo F for Left Cataract Extraction IOL Insertion PCP cleared No previous cataract on record [facility] Active Problems Active Problems: All Active Problems (Updated 10/17/22 @ 00:02 by Jamal Lozano) History of incisional hernia repair (Acute) Right hip pain (Acute) Lumbosacral spondylosis (Acute) Sacroiliac joint dysfunction of right side (Acute) Sacroiliitis (Acute) Sacroiliac joint pain (Acute) Spinal stenosis at L4-L5 level (Acute) Muscle spasm of back (Acute) Past Medical History Medical History Incisional hernia Glaucoma Long QT interval Knee pain Cardiomyopathy CHF (congestive heart failure) CHACORTA on CPAP Depression Heartburn Morbid obesity Dizziness Acid reflux Anxiety Panic attack HTN (hypertension) Hernia, umbilical Family History Family history of problems with anesthesia: No Surgical History Surgical History History of umbilical hernia repair (10/08/22) Hx of umbilical hernia repair Hx of colonoscopy History of hysterectomy H/O ventral hernia repair History of Problems with Anesthesia: No Social History Social History Are you a primary career resource specialist to a significant other at home: No Do you presently have visiting nurse or other home services: No Alcohol intake: never Patient Tobacco Use Status: Former Tobacco user Quit Date: 2021 Tobacco use type: Cigarette Advance Directives: No Advance Directives Information Provided: Yes Advance Directives on File: No Meds Allergies Allergy/AdvReac Type Severity Reaction Status Date / Time No Known Allergies Allergy Verified 10/28/23 08:11 Home Medications Medication Instructions Recorded Confirmed Last Taken Type carvedilol 25 mg tablet (Coreg) 25 mg PO BID 07/08/20 10/24/23 10/08/22 History clonazepam 0.5 mg tablet 0.5 mg PO DAILY PRN Anxiety 07/08/20 10/24/23 10/07/22 History hydrochlorothiazide 25 mg tablet 25 mg PO DAILY 07/08/20 10/24/23 10/07/22 History hydralazine 25 mg tablet 25 mg PO BIDAC 11/28/21 10/24/23 10/08/22 History acetaminophen 650 mg 1,300 mg PO Q6-8H PRN Pain 12/21/21 10/24/23 10/07/22 History tablet,extended release sertraline 100 mg tablet 2 tab PO QAM 10/08/22 10/24/23 Unknown History polyethylene glycol 3350 17 17 g PO DAILY 10/24/23 10/24/23 Unknown History gram/dose oral powder (Gavilax) sennosides 8.6 mg tablet (Natural 8.6 mg PO BEDTIME constipation 10/24/23 10/24/23 Unknown History Senna Laxative) simethicone 125 mg chewable tablet 125 mg PO QID PRN Gastrointestinal 10/24/23 10/24/23 Unknown History Spasms Or Cramping Exam Height,Weight and Vital Signs: Height 5 ft 5 in Weight 160.118 kg Assessment and Plan Assessment Anesthesia Assessment: Chart Reviewed Final Anesthetic Review Family History of Problems with Anesthesia: No History of Problems with Anesthesia: No Documented by User: Mari Barrios MD 10/28/23 08:26 [facility] Past Medical History Medical History Incisional hernia Glaucoma Long QT interval Knee pain Cardiomyopathy CHF (congestive heart failure) CHACORTA on CPAP Depression Heartburn Morbid obesity Dizziness Acid reflux Anxiety Panic attack HTN (hypertension) Hernia, umbilical Surgical History Surgical History History of umbilical hernia repair (10/08/22) Hx of umbilical hernia repair Hx of colonoscopy History of hysterectomy H/O ventral hernia repair Social History Social History Are you a primary career resource specialist to a significant other at home: No Do you presently have visiting nurse or other home services: No Alcohol intake: never Patient Tobacco Use Status: Former Tobacco user Quit Date: 2021 Tobacco use type: Cigarette Advance Directives: No Advance Directives Information Provided: Yes Advance Directives on File: No Meds Allergies Allergy/AdvReac Type Severity Reaction Status Date / Time No Known Allergies Allergy Verified 10/28/23 08:11 Home Medications Medication Instructions Recorded Confirmed Last Taken Type carvedilol 25 mg tablet (Coreg) 25 mg PO BID 07/08/20 10/24/23 10/08/22 History clonazepam 0.5 mg tablet 0.5 mg PO DAILY PRN Anxiety 07/08/20 10/24/23 10/07/22 History hydrochlorothiazide 25 mg tablet 25 mg PO DAILY 07/08/20 10/24/23 10/07/22 History hydralazine 25 mg tablet 25 mg PO BIDAC 11/28/21 10/24/23 10/08/22 History acetaminophen 650 mg 1,300 mg PO Q6-8H PRN Pain 12/21/21 10/24/23 10/07/22 History tablet,extended release sertraline 100 mg tablet 2 tab PO QAM 10/08/22 10/24/23 Unknown History polyethylene glycol 3350 17 17 g PO DAILY 10/24/23 10/24/23 Unknown History gram/dose oral powder (Gavilax) sennosides 8.6 mg tablet (Natural 8.6 mg PO BEDTIME constipation 10/24/23 10/24/23 Unknown History Senna Laxative) simethicone 125 mg chewable tablet 125 mg PO QID PRN Gastrointestinal 10/24/23 10/24/23 Unknown History Spasms Or Cramping Exam Airway Mallampati Class: III TM Dist: >3cm Neck ROM: Limited Loose/Missing/Broken Teeth: No Heart: RRR Lungs: CTA Assessment and Plan Assessment Anesthesia Assessment: Anesthesia Plan Discussed Final Anesthetic Review NPO: Yes ASA Class: III Final Preanesthetic Review: Meds/Allgs Chart Reviewed, Consent Obtained/Reviewed and Anes Risks/Benef Reviewed Patient Risk: Intermediate Procedure Risk: Low Anesthetic Plan Anesthetic Plan: MAC: Disposition: Standard PACU
[2023-10-28] MEDS: Tetracaine HCl/PF 0.5% Oph Sol 4 ML DROPS 1 DROP EYE-LEFT (08:27)
[2023-10-28 08:28] VITALS: BP 125/57; PULSE 83; RESP 16; TEMP 36.5; O2SAT 94
[2023-10-28] MEDS: Lactated Ringers 500 ML 50 ML IV (08:28)
[2023-10-28] MEDS: Cyclopentolate 1 % Ophth Sol 2 ML DRPBTL 1 DROP EYE-LEFT ×3 (08:29→08:41)
[2023-10-28] MEDS: Tropicamide 1 % Ophth Sol 3 ML BTL 1 DROP EYE-LEFT ×3 (08:31→08:42)
[2023-10-28] MEDS: Ketorolac Tromethamine 0.5% Op 5 ML DROPS 1 DROP EYE-LEFT ×3 (08:33→08:43)
[2023-10-28] MEDS: Phenylephrine HCL 2.5% Oph SoL 2 ML BOTTLE 1 DROP EYE-LEFT ×3 (08:34→08:44)
--- NOTE | 2023-10-28 09:23 | MHC.SHP ---
Pre-Procedural Eval Section A - 24 Hr Update-Section A only Date of Service: 10/28/23 The patient is an INPATIENT: No Changes since office visit: No Cold of Flu in the past 2 weeks, No New Medical Problems, No Changes in Medication and No Patient answered all questions The patient has been examined within 24 hours of the surgical procedure. The History & Physical has been completed within 30 days and I have reviewed it.: Yes Section B - Complete if H&P > 30 days Chief Complaint: Age-related nuclear cataract, left eye Allergies: Allergies Allergy/AdvReac Type Severity Reaction Status Date / Time No Known Allergies Allergy Verified 10/28/23 08:11 Plan Diagnosis/Plan: Unchanged I have reviewed the history and physical and performed a pertinent physical examination on my patient. No changes have occurred unless specified. Time Spent With Patient Time: Total time managing care of this patient today ____ minutes.
--- NOTE | 2023-10-28 09:50 | HO.PNOPHT ---
Ophthalmology Procedure Procedure Date of Service: 10/28/23 Ophthalmology Viscoelastic: Healon Duet Dual Pack Pro Ophthalmology Lenses: Other (MA60 22) Procedure Notes: PREOPERATIVE DIAGNOSIS: Decreased visual acuity left eye secondary to cataract POSTOPERATIVE DIAGNOSIS: Same PROCEDURE: Left cataract extraction with intraocular lens insertion SURGEON: John Harkins M.D. ANESTHESIA: Topical/MAC ESTIMATED BLOOD LOSS: None COMPLICATIONS: Capsular tear After obtaining informed consent, the patient was brought to the operation room suite and placed in the supine position. After adequate sedation per anesthesia, topical drops of Tetracaine were given to the left eye. The eye was then prepped and draped in the usual sterile fashion. The operating room microscope was then positioned over the operative eye and a lid speculum placed. A paracentesis was created. Viscoelastic was then instilled into the anterior chamber. A three plane incision was then created temporally, utilizing a 2.85 mm keratome. Capsulotomy forceps were then utilized to create a circular tear capsulotomy. Hydrodissection and hydrodelineation were carried out until adequate mobilization of the nucleus occurred. Phacoemulsification was then utilized to remove the dense central nucleus followed by removal of the cortical material utilizing the automated aspiration irrigation unit. Viscoat elastic was instilled into the posterior capsular ba, a tear was noted. The placement of a posterior chamber intraocular lens was changed to the sulcus with optic entrapped through the capsulotomy. An aterior vitrectomy was compted. The wound was check and found to be watertight. The patient tolerated the procedure well and the lid speculum was removed. Intracameral injection of Vigamox 0.1 mL followed by a subtenon injection of Kenalog-40 0.2 mL were administered. The patient will be seen in the a.m.
[2023-10-28 10:25] VITALS: BP 116/69; PULSE 75; RESP 20; TEMP 36.6; O2SAT 96
== END 2023-10-28 10:41 | disposition home or self-care (01) ==
PROVIDERS: PCP Internal Medicine Geriatric Medicine; Visit Provider Ophthalmology
PROC: (CPT 66985; principal; 2023-10-28 09:10)
DX: H25.12 Age-related nuclear cataract, left eye (principal); H59.212 Accidental puncture and laceration of left eye and adnexa during an ophthalmic procedure; H52.4 Presbyopia; H40.013 Open angle with borderline findings, low risk, bilateral; H11.133 Conjunctival pigmentations, bilateral; H18.413 Arcus senilis, bilateral; I10 Essential (primary) hypertension; F41.9 Anxiety disorder, unspecified; F32.A Depression, unspecified; Z79.899 Other long term (current) drug therapy; Z87.891 Personal history of nicotine dependence
CPT/HCPCS: 66984; 67005; J2250; J3010; J3301; V2630

== ENCOUNTER 2023-11-18 06:04 | Day surgery (SDC) | payer MEDICAID, SELFPAY ==
[2023-10-24 12:36] VITALS: BMI 58.7
--- NOTE | 2023-11-15 10:30 | HO.ANESPROP2 ---
Documented by User: Ban Hare NP 11/15/23 10:31 HPI - Anesthesia Eval Consult details Narrative: 53yo F for Right Cataract Extraction IOL Insertion Medically cleared Left eye 10/28/23: Fent 50, Midaz 2 PMFSH Active Problems Active Problems: All Active Problems (Updated 10/17/22 @ 00:02 by Background Dacady) History of incisional hernia repair (Acute) Right hip pain (Acute) Lumbosacral spondylosis (Acute) Sacroiliac joint dysfunction of right side (Acute) Sacroiliitis (Acute) Sacroiliac joint pain (Acute) Spinal stenosis at L4-L5 level (Acute) Muscle spasm of back (Acute) Past Medical History Medical History Incisional hernia Glaucoma Long QT interval Knee pain Cardiomyopathy CHF (congestive heart failure) [place] on CPAP Depression Heartburn Morbid obesity Dizziness Acid reflux Anxiety Panic attack HTN (hypertension) Hernia, umbilical Family History Family history of problems with anesthesia: No Surgical History Surgical History History of umbilical hernia repair (10/08/22) Hx of umbilical hernia repair Hx of colonoscopy History of hysterectomy H/O ventral hernia repair History of Problems with Anesthesia: No Social History Social History Are you a primary healthcare consultant to a significant other at home: No Do you presently have visiting nurse or other home services: No Alcohol intake: never Patient Tobacco Use Status: Former Tobacco user Quit Date: 2021 Tobacco use type: Cigarette Advance Directives: No Advance Directives Information Provided: Yes Advance Directives on File: No Meds Allergies Allergy/AdvReac Type Severity Reaction Status Date / Time No Known Allergies Allergy Verified 11/18/23 07:06 Home Medications Medication Instructions Recorded Confirmed Last Taken Type carvedilol 25 mg tablet (Coreg) 25 mg PO BID 07/08/20 10/24/23 11/18/23 History clonazepam 0.5 mg tablet 0.5 mg PO DAILY PRN Anxiety 07/08/20 10/24/23 10/07/22 History hydrochlorothiazide 25 mg tablet 25 mg PO DAILY 07/08/20 10/24/23 10/07/22 History hydralazine 25 mg tablet 25 mg PO BIDAC 11/28/21 10/24/23 10/28/23 00:00 History acetaminophen 650 mg 1,300 mg PO Q6-8H PRN Pain 12/21/21 10/24/23 10/07/22 History tablet,extended release sertraline 100 mg tablet 2 tab PO QAM 10/08/22 10/24/23 10/28/23 00:00 History polyethylene glycol 3350 17 17 g PO DAILY 10/24/23 10/24/23 Unknown History gram/dose oral powder (Gavilax) sennosides 8.6 mg tablet (Natural 8.6 mg PO BEDTIME constipation 10/24/23 10/24/23 Unknown History Senna Laxative) simethicone 125 mg chewable tablet 125 mg PO QID PRN Gastrointestinal 10/24/23 10/24/23 Unknown History Spasms Or Cramping atorvastatin 20 mg tablet 20 mg PO DAILY 10/28/23 11/18/23 11/18/23 History omeprazole 20 mg capsule,delayed 20 mg PO DAILY 10/28/23 10/28/23 10/28/23 00:00 History release losartan 50 mg tablet 100 mg PO DAILY 11/18/23 11/18/23 11/18/23 History Exam Height,Weight and Vital Signs: Height 5 ft 5 in Weight 160.118 kg Assessment and Plan Assessment Anesthesia Assessment: Chart Reviewed Final Anesthetic Review Family History of Problems with Anesthesia: No History of Problems with Anesthesia: No Documented by User: Javier De La Rosa MD 11/18/23 07:35 [facility] Past Medical History Medical History Incisional hernia Glaucoma Long QT interval Knee pain Cardiomyopathy CHF (congestive heart failure) [place] on CPAP Depression Heartburn Morbid obesity Dizziness Acid reflux Anxiety Panic attack HTN (hypertension) Hernia, umbilical Surgical History Surgical History History of umbilical hernia repair (10/08/22) Hx of umbilical hernia repair Hx of colonoscopy History of hysterectomy H/O ventral hernia repair Social History Social History Are you a primary healthcare consultant to a significant other at home: No Do you presently have visiting nurse or other home services: No Alcohol intake: never Patient Tobacco Use Status: Former Tobacco user Quit Date: 2021 Tobacco use type: Cigarette Advance Directives: No Advance Directives Information Provided: Yes Advance Directives on File: No Meds Allergies Allergy/AdvReac Type Severity Reaction Status Date / Time No Known Allergies Allergy Verified 11/18/23 07:06 Home Medications Medication Instructions Recorded Confirmed Last Taken Type carvedilol 25 mg tablet (Coreg) 25 mg PO BID 07/08/20 10/24/23 11/18/23 History clonazepam 0.5 mg tablet 0.5 mg PO DAILY PRN Anxiety 07/08/20 10/24/23 10/07/22 History hydrochlorothiazide 25 mg tablet 25 mg PO DAILY 07/08/20 10/24/23 10/07/22 History hydralazine 25 mg tablet 25 mg PO BIDAC 11/28/21 10/24/23 10/28/23 00:00 History acetaminophen 650 mg 1,300 mg PO Q6-8H PRN Pain 12/21/21 10/24/23 10/07/22 History tablet,extended release sertraline 100 mg tablet 2 tab PO QAM 10/08/22 10/24/23 10/28/23 00:00 History polyethylene glycol 3350 17 17 g PO DAILY 10/24/23 10/24/23 Unknown History gram/dose oral powder (Gavilax) sennosides 8.6 mg tablet (Natural 8.6 mg PO BEDTIME constipation 10/24/23 10/24/23 Unknown History Senna Laxative) simethicone 125 mg chewable tablet 125 mg PO QID PRN Gastrointestinal 10/24/23 10/24/23 Unknown History Spasms Or Cramping atorvastatin 20 mg tablet 20 mg PO DAILY 10/28/23 11/18/23 11/18/23 History omeprazole 20 mg capsule,delayed 20 mg PO DAILY 10/28/23 10/28/23 10/28/23 00:00 History release losartan 50 mg tablet 100 mg PO DAILY 11/18/23 11/18/23 11/18/23 History Exam Airway Mallampati Class: III TM Dist: >3cm Neck ROM: Full Loose/Missing/Broken Teeth: No Heart: [id number] Lungs: cta b/l Assessment and Plan Assessment Anesthesia Assessment: Anesthesia Plan Discussed Final Anesthetic Review NPO: Yes ASA Class: III Final Preanesthetic Review: No Changes in Pt Med Stat, Meds/Allgs Chart Reviewed, Consent Obtained/Reviewed and Anes Risks/Benef Reviewed Patient Risk: Intermediate Procedure Risk: Low Assessment/Block/Sedation in SS: Assess/Block/Sedation-SS Anesthetic Plan Anesthetic Plan: MAC: Disposition: Standard PACU
[2023-11-18 06:48] VITALS: BP 137/70; PULSE 87; RESP 18; TEMP 36.8; O2SAT 96
[2023-11-18] MEDS: Ketorolac Tromethamine 0.5% Op 5 ML DROPS 1 DROP EYE-RIGHT ×3 (06:49→06:57)
[2023-11-18] MEDS: Tetracaine HCl/PF 0.5% Oph Sol 4 ML DROPS 1 DROP EYE-RIGHT (06:49)
[2023-11-18] MEDS: Lactated Ringers 500 ML 50 ML IV (06:49)
[2023-11-18] MEDS: Phenylephrine HCL 2.5% Oph SoL 2 ML BOTTLE 1 DROP EYE-RIGHT ×3 (06:49→06:57)
[2023-11-18] MEDS: Cyclopentolate 1 % Ophth Sol 2 ML DRPBTL 1 DROP EYE-RIGHT ×3 (06:50→06:57)
[2023-11-18] MEDS: Tropicamide 1 % Ophth Sol 3 ML BTL 1 DROP EYE-RIGHT ×3 (06:50→06:57)
--- NOTE | 2023-11-18 08:15 | HO.ANESPROP2 ---
[facility] Active Problems Active Problems: All Active Problems (Updated 10/17/22 @ 00:02 by Jamal Lozano) History of incisional hernia repair (Acute) Right hip pain (Acute) Lumbosacral spondylosis (Acute) Sacroiliac joint dysfunction of right side (Acute) Sacroiliitis (Acute) Sacroiliac joint pain (Acute) Spinal stenosis at L4-L5 level (Acute) Muscle spasm of back (Acute) Past Medical History Medical History Incisional hernia Glaucoma Long QT interval Knee pain Cardiomyopathy CHF (congestive heart failure) [place] on CPAP Depression Heartburn Morbid obesity Dizziness Acid reflux Anxiety Panic attack HTN (hypertension) Hernia, umbilical Family History Family history of problems with anesthesia: No Surgical History Surgical History History of umbilical hernia repair (10/08/22) Hx of umbilical hernia repair Hx of colonoscopy History of hysterectomy H/O ventral hernia repair History of Problems with Anesthesia: No Social History Social History Are you a primary nursing care partner to a significant other at home: No Do you presently have visiting nurse or other home services: No Alcohol intake: never Patient Tobacco Use Status: Former Tobacco user Quit Date: 2021 Tobacco use type: Cigarette Advance Directives: No Advance Directives Information Provided: Yes Advance Directives on File: No Meds Allergies Allergy/AdvReac Type Severity Reaction Status Date / Time No Known Allergies Allergy Verified 11/18/23 07:06 Active Medications: Current Medications Acetaminophen (Acetaminophen 325 Mg Tablet) 650 mg PO ONCE PRN PRN Reason: Pain, Mild (Pain Scale 1-3) Lactated Ringer's (Lr) 500 mls @ 50 mls/hr IV .Q10H CORDELIA Stop: 11/18/23 16:29 Last Admin: 11/18/23 06:49 Dose: 50 mls/hr Ondansetron HCl (Ondansetron Hcl 4 Mg/2 Ml Vial) 4 mg IVPUSH ONCE PRN PRN Reason: Nausea and Vomiting Povidone Iodine (Povidone Iodine 5 % Ophth Soln 30 Ml Bottle) 1 appl EYE-RIGHT PREOP PRN PRN Reason: Pre-Op Surgical Implant Prophy Home Medications Medication Instructions Recorded Confirmed Last Taken Type carvedilol 25 mg tablet (Coreg) 25 mg PO BID 07/08/20 10/24/23 11/18/23 History clonazepam 0.5 mg tablet 0.5 mg PO DAILY PRN Anxiety 07/08/20 10/24/23 10/07/22 History hydrochlorothiazide 25 mg tablet 25 mg PO DAILY 07/08/20 10/24/23 10/07/22 History hydralazine 25 mg tablet 25 mg PO BIDAC 11/28/21 10/24/23 10/28/23 00:00 History acetaminophen 650 mg 1,300 mg PO Q6-8H PRN Pain 12/21/21 10/24/23 10/07/22 History tablet,extended release sertraline 100 mg tablet 2 tab PO QAM 10/08/22 10/24/23 10/28/23 00:00 History polyethylene glycol 3350 17 17 g PO DAILY 10/24/23 10/24/23 Unknown History gram/dose oral powder (Gavilax) sennosides 8.6 mg tablet (Natural 8.6 mg PO BEDTIME constipation 10/24/23 10/24/23 Unknown History Senna Laxative) simethicone 125 mg chewable tablet 125 mg PO QID PRN Gastrointestinal 10/24/23 10/24/23 Unknown History Spasms Or Cramping atorvastatin 20 mg tablet 20 mg PO DAILY 10/28/23 11/18/23 11/18/23 History omeprazole 20 mg capsule,delayed 20 mg PO DAILY 10/28/23 10/28/23 10/28/23 00:00 History release losartan 50 mg tablet 100 mg PO DAILY 11/18/23 11/18/23 11/18/23 History Exam Height,Weight and Vital Signs: Height 5 ft 5 in Weight 160.118 kg Last Vital Signs Temp 98.2 F 11/18/23 06:48 Pulse 87 11/18/23 06:48 Resp 18 11/18/23 06:48 BP 137/70 11/18/23 06:48 Pulse Ox 96 11/18/23 06:48 O2 Del Method Room Air 11/18/23 06:48 Airway Mallampati Class: IV TM Dist: >3cm Neck ROM: Full Assessment and Plan Assessment Anesthesia Assessment: Anesthesia Plan Discussed and Chart Reviewed Final Anesthetic Review Family History of Problems with Anesthesia: No History of Problems with Anesthesia: No NPO: Yes ASA Class: III Final Preanesthetic Review: No Changes in Pt Med Stat, Meds/Allgs Chart Reviewed, Consent Obtained/Reviewed and Anes Risks/Benef Reviewed Patient Risk: Intermediate Procedure Risk: Low Anesthetic Plan Anesthetic Plan: MAC: Disposition: Standard PACU
--- NOTE | 2023-11-18 08:57 | MHC.SHP ---
Pre-Procedural Eval Section A - 24 Hr Update-Section A only Date of Service: 11/18/23 The patient is an INPATIENT: No The patient has been examined within 24 hours of the surgical procedure. The History & Physical has been completed within 30 days and I have reviewed it.: Yes Section B - Complete if H&P > 30 days Chief Complaint: Age-related nuclear cataract, right eye Allergies: Allergies Allergy/AdvReac Type Severity Reaction Status Date / Time No Known Allergies Allergy Verified 11/18/23 07:06 Plan Diagnosis/Plan: Unchanged I have reviewed the history and physical and performed a pertinent physical examination on my patient. No changes have occurred unless specified. Time Spent With Patient Time: Total time managing care of this patient today ____ minutes.
--- NOTE | 2023-11-18 08:58 | HO.PNOPHT ---
Ophthalmology Procedure Procedure Date of Service: 11/18/23 Ophthalmology Viscoelastic: Healvinny Duet Dual Pack Pro Ophthalmology Lenses: Other (MA60 22.5 ) Procedure Notes: PREOPERATIVE DIAGNOSIS: Decreased visual acuity right eye secondary to cataract POSTOPERATIVE DIAGNOSIS: Same PROCEDURE: Right cataract extraction with intraocular lens insertion SURGEON: John Harkins M.D. ANESTHESIA: Topical/MAC ESTIMATED BLOOD LOSS: None COMPLICATIONS: None After obtaining informed consent, the patient was brought to the operating room suite and placed in the supine position. After adequate sedation per anesthesia, topical drops of Tetracaine were given to the right eye. The eye was then prepped and draped in the usual sterile fashion. The operating room microscope was then positioned over the operative eye and a lid speculum placed. A paracentesis was created. Viscoelastic was then instilled into the anterior chamber. A three plane incision was then created temporally, utilizing a 2.85 mm keratome. Capsulotomy forceps were then utilized to create a circular tear capsulotomy. Hydrodissection and hydrodelineation were carried out until adequate mobilization of the nucleus occurred. Phacoemulsification was then utilized to remove the dense central nucleus followed by removal of the cortical material utilizing the automated aspiration irrigation unit. Viscoelastic was instilled into the posterior capsular bag followed by placement of a posterior chamber intraocular lens without difficulty. The residual Viscoelastic was then removed utilizing the automated IA machine.A rent in the capule was noted with bowing anteriorly of the PCIOL. The haptics were placed in the sulcus and an anterior vitrcomy was completed. The wound was checked and found to be watertight. The patient tolerated the procedure well and the lid speculum was removed. Intracameral injection of Vigamox 0.1 mL followed by a subtenon injection of Kenalog-40 0.2 mL were administered. The patient will be seen in the a.m.
[2023-11-18 09:58] VITALS: BP 118/53; PULSE 74; RESP 20; TEMP 36.2; O2SAT 96
== END 2023-11-18 10:15 | disposition home or self-care (01) ==
PROVIDERS: PCP Internal Medicine Geriatric Medicine; Visit Provider Ophthalmology
PROC: (CPT 66985; principal; 2023-11-18 08:00)
DX: H25.11 Age-related nuclear cataract, right eye (principal); H52.4 Presbyopia; H40.013 Open angle with borderline findings, low risk, bilateral; H11.133 Conjunctival pigmentations, bilateral; H18.413 Arcus senilis, bilateral; G47.33 Obstructive sleep apnea (adult) (pediatric); F32.A Depression, unspecified; I11.0 Hypertensive heart disease with heart failure; I50.9 Heart failure, unspecified; I42.9 Cardiomyopathy, unspecified; F41.9 Anxiety disorder, unspecified; Z79.899 Other long term (current) drug therapy; Z99.89 Dependence on other enabling machines and devices; Z87.891 Personal history of nicotine dependence
CPT/HCPCS: 66984; J2250; J3010; J3301; V2630

== ENCOUNTER → 2023-12-29 19:30 | Outpatient (REF) | payer MEDICAID, SELFPAY | LOC: HO.SL 19:30 | PROVIDERS: PCP Internal Medicine Geriatric Medicine; Visit Provider Internal Medicine Geriatric Medicine | DX: Z13.89 Encounter for screening for other disorder (principal) ==

== ENCOUNTER 2023-12-31 11:03 | Outpatient (REF) | payer MEDICAID, SELFPAY | END 2023-12-31 11:04 | disposition home or self-care (01) | LOC: HO.MAMMO 11:03 | PROVIDERS: PCP Internal Medicine Geriatric Medicine; Visit Provider Internal Medicine Geriatric Medicine | DX: Z12.31 Encounter for screening mammogram for malignant neoplasm of breast (principal) | CPT/HCPCS: 77063; 77067 ==

== ENCOUNTER → 2023-12-31 12:00 | Outpatient (BNV) | payer MEDICAID, SELFPAY | PROVIDERS: PCP Internal Medicine Geriatric Medicine; Visit Provider Radiology Diagnostic Radiology | DX: Z12.31 Encounter for screening mammogram for malignant neoplasm of breast (principal) | CPT/HCPCS: 77063; 77067 ==

== ENCOUNTER 2024-01-08 08:29 | Outpatient (REF) | payer MEDICAID, SELFPAY ==
[2024-01-08 09:44] LABS: Alanine Aminotransferase 20 U/L (0-31); Alkaline Phosphatase 120 U/L (39-117); Anion Gap 11 (12-20); Aspartate Amino Transferase 18 U/L (5-31); Bilirubin Total 0.3 mg/dL (0.0-1.0); Blood Urea Nitrogen 21 mg/dL (9-16); Calcium 10.3 mg/dL (8.4-10.2); Carbon Dioxide 34 mmol/L (22-29); Chloride 99 mmol/L (96-108); Cholesterol 171 mg/dL (<200); Estimated Glomerular Filt Rate > 60; Glucose Random 119 mg/dL (60-115); HDL Cholesterol 40 mg/dL (>40); LDL Cholesterol Calculated 98 mg/dL (<100); Potassium 3.2 mmol/L (3.3-5.1); Sodium 141 mmol/L (135-145); Total Protein 7.9 g/dL (6.5-8.0); Triglycerides 165 mg/dL (<150)
== END 2024-01-08 08:30 | disposition home or self-care (01) ==
LOC: HO.LAB 08:29
PROVIDERS: PCP Internal Medicine Geriatric Medicine; Visit Provider Internal Medicine Geriatric Medicine
DX: E78.00 Pure hypercholesterolemia, unspecified (principal)
CPT/HCPCS: 36415; 80053; 80061

== ENCOUNTER 2024-02-21 13:35 | Emergency (ER) | payer MEDICAID, SELFPAY ==
--- NOTE | 2024-02-21 13:55 | ECG_ITS ---
Test Reason : CHEST PAIN Blood Pressure : / mmHG Vent. Rate : 084 BPM Atrial Rate : 084 BPM P-R Int : 206 ms QRS Dur : 096 ms QT Int : 430 ms P-R-T Axes : 031 -35 038 degrees QTc Int : 508 ms Normal sinus rhythm Left axis deviation Incomplete right bundle branch block Prolonged QT Abnormal ECG When compared with ECG of 04-MAR-2021 15:17, No significant change was found Referred By: Lydia Jorge Electronically Signed By:CODY RAMAN MD
--- NOTE | 2024-02-21 14:25 | ED.GENADULT ---
HPI - General Adult General Chief complaint: Dizziness Stated complaint: dizzy Time Seen by Provider: 02/21/24 22:27 History of Present Illness ED Provider: christie HONEYCUTT narrative: Patient 54 years old with history of cardiomyopathy HLD, obesity, hypertension, GERD, prolonged QT interval with history of dizziness in the past today was doing the grocery shopping felt sweaty and dizzy prior to arrival no chest pain or palpitation symptoms got better after arrival Related Data Home Medications ?Medication ?Instructions ?Recorded ?Confirmed carvedilol 25 mg tablet (Coreg) 25 mg PO BID 07/08/20 10/24/23 clonazepam 0.5 mg tablet 0.5 mg PO DAILY PRN Anxiety 07/08/20 10/24/23 hydrochlorothiazide 25 mg tablet 25 mg PO DAILY 07/08/20 10/24/23 hydralazine 25 mg tablet 25 mg PO BIDAC 11/28/21 10/24/23 acetaminophen 650 mg 1,300 mg PO Q6-8H PRN Pain 12/21/21 10/24/23 tablet,extended release sertraline 100 mg tablet 2 tab PO QAM 10/08/22 10/24/23 polyethylene glycol 3350 17 17 g PO DAILY 10/24/23 10/24/23 gram/dose oral powder (Gavilax) sennosides 8.6 mg tablet (Natural 8.6 mg PO BEDTIME constipation 10/24/23 10/24/23 Senna Laxative) simethicone 125 mg chewable tablet 125 mg PO QID PRN Gastrointestinal 10/24/23 10/24/23 Spasms Or Cramping atorvastatin 20 mg tablet 20 mg PO DAILY 10/28/23 11/18/23 omeprazole 20 mg capsule,delayed 20 mg PO DAILY 10/28/23 10/28/23 release losartan 50 mg tablet 100 mg PO DAILY 11/18/23 11/18/23 Allergies Allergy/AdvReac Type Severity Reaction Status Date / Time No Known Allergies Allergy Verified 02/21/24 14:29 [facility] Past Medical History Medical History Incisional hernia Glaucoma Long QT interval Knee pain Cardiomyopathy CHF (congestive heart failure) CHACORT[place] on CPAP Depression Heartburn Morbid obesity Dizziness Acid reflux Anxiety Panic attack HTN (hypertension) Hernia, umbilical Surgical History History of umbilical hernia repair (10/08/22) Hx of umbilical hernia repair Hx of colonoscopy History of hysterectomy H/O ventral hernia repair Social History Social History Are you a primary child care associate teacher to a significant other at home: No Do you presently have visiting nurse or other home services: No Alcohol intake: never Patient Tobacco Use Status: Former Tobacco user Tobacco use type: Cigarette Advance Directives: No Advance Directives Information Provided: No Physical Exam ED Vital Signs: Vital Signs - 24 hr 02/21/24 14:26 02/21/24 22:28 02/21/24 22:35 Temperature 97.8 F 98.3 F Pulse Rate 75 78 74 Respiratory Rate 18 18 Blood Pressure 156/84 H 160/70 H 153/73 H Pulse Oximetry 95 97 Oxygen Delivery Method Room Air Room Air 02/21/24 22:35 02/21/24 22:35 02/21/24 23:05 Temperature 98.3 F Pulse Rate 80 44 L 74 Respiratory Rate 16 Blood Pressure 159/83 H 163/76 H 131/52 L Pulse Oximetry 96 Oxygen Delivery Method Room Air BMI result Body Mass Index 59.7 Course Course Course Narrative: This is an RME performed by Elizabeth Jorge CNP: Additional HPI, ROS, PE not included below will be deferred to primary provider. Patient is a 54-year-old female who presents to the emergency department. She states that she was in a supermarket when suddenly she began feeling dizzy, excessively sweating. She reports she has been having similar symptoms intermittently for the past week but today was worse. Symptoms are also worse with position change Has not sought evaluation. Denies chest pain or shortness of breath. She admits to having a cardiac history with hypertension. Currently asymptomatic Physical exam: Focal neurological deficits, LS CTA, heart sounds normal, alert and oriented x3, ambulatory with a steady gait Plan: Labs, EKG Medical Decision Making Medical Decision Making MDM Narrative: Patient without any significant changes in the EKG had chronic prolonged QTC interval during stay in the ER patient in stable condition vitals are stable will discharge patient home high sensitive troponin negative 1 other vitals reading read heart rate of 44 which was an error repeat heart rate was 76 Differential Diagnosis Differential Diagnoses: The differential diagnosis associated with the presentation includes Dizziness/palpitation/ACS Admission/Observation Consideration of admission/observation: Escalation of care including admission/observation considered Lab Data MDM Lab Attestation statement: I reviewed the patient's lab results. 02/21/24 14:39 02/21/24 14:39 Labs: Lab Results 02/21/24 02/21/24 Range/Units 14:39 14:40 WBC 8.8 (4.8-10.8) X10*3/uL RBC 4.71 (4.20-5.50) X10*6/uL Hgb 13.3 (12.0-16.0) g/dl Hct 40.5 (37.0-47.0) % MCV 86.0 (80.0-98.0) fL MCH 28.2 (27.0-33.0) pg MCHC 32.8 (31.0-35.0) g/dl RDW 13.9 (11.0-16.0) % Plt Count 332 (160-400) X10*3/uL MPV 10.8 (9.4-12.3) fL Immature Gran % (Auto) 0.3 (0.0-0.4) % Neut % (Auto) 63.5 (45-73) % Lymph % (Auto) 26.2 (20-40) % [place] % (Auto) 6.9 (2-11) % Eos % (Auto) 2.4 (0-4) % Baso % (Auto) 0.7 (0-2) % Lymph # (Auto) 2.3 (1.2-4.9) X10*3/uL [place] # (Auto) 0.6 (0.1-1.2) X10*3/uL Eos # (Auto) 0.2 (0.0-0.4) X10*3/uL Baso # (Auto) 0.1 (0.0-0.2) X10*3/uL Abs Immat Gran (auto) 0.03 (0.00-0.03) X10*3/uL Absolute Neuts (auto) 5.6 (2.0-8.3) x10*3/uL Absolute Nucleated RBC 0.000 (0.0-0.012) X10*3/uL Nucleated RBC % (auto) 0.0 (0.0-0.2) /100WBC PT 12.3 (11.1-13.3) SEC INR 1.0 (0.9-1.1) Sodium 142 (135-145) mmol/L Potassium 3.4 (3.3-5.1) mmol/L Chloride 101 (96-108) mmol/L Carbon Dioxide 34 H (22-29) mmol/L Anion Gap 10 L (12-20) BUN 14 (9-16) mg/dL Creatinine 0.83 (0.5-1.4) mg/dL Estim Creat Clear Calc 122.8 Estimated GFR > 60 Random Glucose 103 (60-115) mg/dL Calcium 10.7 H (8.4-10.2) mg/dL Magnesium 1.9 (1.6-2.6) mg/dL Total Bilirubin 0.3 (0.0-1.0) mg/dL AST 23 (5-31) U/L ALT 21 (0-31) U/L Alkaline Phosphatase 122 H (39-117) U/L Troponin I High Sens < 2.7 (<3.5-17.0) ng/L Total Protein 7.9 (6.5-8.0) g/dL Albumin 4.1 (3.5-5.0) g/dL TSH 0.42 (0.32-4.0) uIU/mL Influenza Type A (PCR) NEGATIVE (Negative) Influenza Type B (PCR) NEGATIVE (Negative) RSV RNA Qual (PCR) NEGATIVE (Negative) SARS-CoV-2 RNA (RT-PCR) NEGATIVE (Negative) Independent Interpretation I performed an independent interpretation of an: EKG Interpretation: Normal sinus rhythm heart rate 84 beats per minute left axis deviation left axis prolonged QTC of 508 milliseconds similar to that in the past no acute ischemic changes Discharge Plan Discharge Clinical Impression: Dizziness Patient Disposition: Home, Self-Care Instructions: Dizziness (ED) Additional Instructions: Drink plenty of fluids Continue taking your medications Follow with your PCP if any concerns Prescriptions: No Action carvedilol [Coreg] 25 mg Tablet 25 mg PO BID clonazepam 0.5 mg Tablet 0.5 mg PO DAILY PRN (Reason: Anxiety) hydrochlorothiazide 25 mg Tablet 25 mg PO DAILY sertraline 100 mg tablet 2 tab PO QAM sennosides [Natural Senna Laxative] 8.6 mg tablet 8.6 mg PO BEDTIME simethicone 125 mg Tablet,Chewable 125 mg PO QID PRN (Reason: Gastrointestinal Spasms Or Cramping) polyethylene glycol 3350 [Gavilax] 17 gram/dose Powder 17 g PO DAILY atorvastatin 20 mg tablet 20 mg PO DAILY omeprazole 20 mg capsule,delayed release(DR/EC) 20 mg PO DAILY losartan 50 mg tablet 100 mg PO DAILY hydralazine 25 mg tablet 25 mg PO BIDAC acetaminophen 650 mg tablet extended release 1,300 mg PO Q6-8H PRN (Reason: Pain) Print Language: Romansh
[2024-02-21 14:26] VITALS: BP 156/84; PULSE 75; RESP 18; TEMP 36.6; O2SAT 95; BMI 59.7
[2024-02-21 14:49] LABS: MANUAL DIFF FLAG NO
[2024-02-21 14:50] LABS: Basophils Absolute Auto 0.1 X10*3/uL (0.0-0.2); Basophils Percent Auto 0.7 % (0-2); Eosinophils Absolute Auto 0.2 X10*3/uL (0.0-0.4); Eosinophils Percent Auto 2.4 % (0-4); Hematocrit 40.5 % (37.0-47.0); Hemoglobin 13.3 g/dl (12.0-16.0); Imm Gran Abs Auto 0.03 X10*3/uL (0.00-0.03); Imm Gran Pct Auto 0.3 % (0.0-0.4); Lymphocytes Absolute Auto 2.3 X10*3/uL (1.2-4.9); Lymphocytes Percent Auto 26.2 % (20-40); Mean Corpuscular HGB Conc 32.8 g/dl (31.0-35.0); Mean Corpuscular Hemoglobin 28.2 pg (27.0-33.0); Mean Platelet Volume 10.8 fL (9.4-12.3); Monocytes Absolute Auto 0.6 X10*3/uL (0.1-1.2); Monocytes Percent Auto 6.9 % (2-11); Neutrophils Absolute Auto 5.6 x10*3/uL (2.0-8.3); Neutrophils Percent Auto 63.5 % (45-73); Platelet Count 332 X10*3/uL (160-400); Red Blood Count 4.71 X10*6/uL (4.20-5.50); Red Cell Distribution Width 13.9 % (11.0-16.0); White Blood Count 8.8 X10*3/uL (4.8-10.8)
[2024-02-21 14:55] LABS: Prothrombin Time 12.3 SEC (11.1-13.3)
[2024-02-21 15:08] LABS: Alanine Aminotransferase 21 U/L (0-31); Albumin Level 4.1 g/dL (3.5-5.0); Alkaline Phosphatase 122 U/L (39-117); Anion Gap 10 (12-20); Aspartate Amino Transferase 23 U/L (5-31); Bilirubin Total 0.3 mg/dL (0.0-1.0); Blood Urea Nitrogen 14 mg/dL (9-16); Calcium 10.7 mg/dL (8.4-10.2); Carbon Dioxide 34 mmol/L (22-29); Chloride 101 mmol/L (96-108); Creatinine Clr Calc Pharmacy 122.8; Estimated Glomerular Filt Rate > 60; Glucose Random 103 mg/dL (60-115); Magnesium 1.9 mg/dL (1.6-2.6); Potassium 3.4 mmol/L (3.3-5.1); Sodium 142 mmol/L (135-145); Total Protein 7.9 g/dL (6.5-8.0)
[2024-02-21 15:18] LABS: Troponin-I High Sensitivity < 2.7 ng/L (<3.5-17.0)
[2024-02-21 15:28] LABS: TSH reflex Free T4 0.42 uIU/mL (0.32-4.0)
[2024-02-21 15:37] LABS: Influenza A PCR NEGATIVE (Negative); Influenza B PCR NEGATIVE (Negative); Resp Syncy Virus RNA Qual PCR NEGATIVE (Negative); SARS COV2 PCR INHOUSE NEGATIVE (Negative)
[2024-02-21 22:28] VITALS: BP 160/70; PULSE 78; RESP 18; TEMP 36.8; O2SAT 97
[2024-02-21 22:35] VITALS: BP 153/73; BP 159/83; BP 163/76; PULSE 44; PULSE 74; PULSE 80
[2024-02-21 23:05] VITALS: BP 131/52; PULSE 74; RESP 16; TEMP 36.8; O2SAT 96
[2024-02-21 23:33] VITALS: BP 131/52; PULSE 74; RESP 16; TEMP 36.8; O2SAT 96
== END 2024-02-21 23:34 | disposition home or self-care (01) ==
PROVIDERS: Nurse Practitioner Family; Emergency Provider Internal Medicine; PCP Internal Medicine Geriatric Medicine
DX: R42 Dizziness and giddiness (principal); R07.89 Other chest pain; I10 Essential (primary) hypertension; Z79.899 Other long term (current) drug therapy; Z03.818 Encounter for observation for suspected exposure to other biological agents ruled out
CPT/HCPCS: 0241U; 36415; 80053; 83735; 84443; 84484; 85025; 85610; 93005; 99283; 99284

== ENCOUNTER → 2024-02-21 13:55 | Outpatient (BNV) | payer MEDICAID, SELFPAY | PROVIDERS: Emergency Provider Internal Medicine; PCP Internal Medicine Geriatric Medicine; Visit Provider Internal Medicine Cardiovascular Disease | DX: R94.31 Abnormal electrocardiogram [ECG] [EKG] (principal) | CPT/HCPCS: 93010 ==

== ENCOUNTER 2024-03-20 14:50 | Outpatient (REF) | payer MEDICAID, SELFPAY ==
[2024-03-20 15:54] LABS: MANUAL DIFF FLAG NO
[2024-03-20 16:09] LABS: Basophils Absolute Auto 0.1 X10*3/uL (0.0-0.2); Basophils Percent Auto 0.6 % (0-2); Eosinophils Absolute Auto 0.3 X10*3/uL (0.0-0.4); Eosinophils Percent Auto 2.5 % (0-4); Hematocrit 40.2 % (37.0-47.0); Hemoglobin 12.7 g/dl (12.0-16.0); Imm Gran Abs Auto 0.03 X10*3/uL (0.00-0.03); Imm Gran Pct Auto 0.3 % (0.0-0.4); Lymphocytes Absolute Auto 3.2 X10*3/uL (1.2-4.9); Lymphocytes Percent Auto 32.3 % (20-40); Mean Corpuscular HGB Conc 31.6 g/dl (31.0-35.0); Mean Corpuscular Hemoglobin 27.5 pg (27.0-33.0); Mean Platelet Volume 11.1 fL (9.4-12.3); Monocytes Absolute Auto 0.7 X10*3/uL (0.1-1.2); Neutrophils Absolute Auto 5.7 x10*3/uL (2.0-8.3); Neutrophils Percent Auto 57.3 % (45-73); Platelet Count 338 X10*3/uL (160-400); Red Blood Count 4.62 X10*6/uL (4.20-5.50); Red Cell Distribution Width 13.9 % (11.0-16.0); White Blood Count 9.9 X10*3/uL (4.8-10.8)
[2024-03-20 16:13] LABS: Alanine Aminotransferase 18 U/L (0-31); Albumin Level 4.1 g/dL (3.5-5.0); Alkaline Phosphatase 114 U/L (39-117); Anion Gap 12 (12-20); Aspartate Amino Transferase 22 U/L (5-31); Bilirubin Total 0.3 mg/dL (0.0-1.0); Blood Urea Nitrogen 14 mg/dL (9-16); Calcium 10.5 mg/dL (8.4-10.2); Carbon Dioxide 34 mmol/L (22-29); Chloride 98 mmol/L (96-108); Estimated Glomerular Filt Rate > 60; Glucose Random 95 mg/dL (60-115); Potassium 3.2 mmol/L (3.3-5.1); Sodium 141 mmol/L (135-145); Total Protein 7.9 g/dL (6.5-8.0)
== END 2024-03-20 14:51 | disposition home or self-care (01) ==
LOC: HO.HHCL 14:50
PROVIDERS: Visit Provider Nurse Practitioner Family
DX: R42 Dizziness and giddiness (principal)
CPT/HCPCS: 36415; 80053; 85025

== ENCOUNTER 2024-08-19 11:51 | Outpatient (AMB) | payer MEDICAID, SELFPAY ==
--- NOTE | 2024-08-19 12:02 | MHC.OFFVIS ---
Vital Signs 08/19/24 12:03 Height 5 ft 5 in Weight 357 lb 2.382 oz BMI 59.4 BP 132/62 Blood Pressure Location Rt brachial Position Sitting Pulse 66 Pulse Source Pulse Oximeter Pulse Oximetry (%) 97 Oxygen Delivery Method Room Air Intake Visit Reasons: 6 month follow up PT N/S last appt Intake Note: Yamilex presents in office today for a scheduled 6 mos FUV CC; Any changes or new sx since last visit? No significant changes per pt. Any labs or diagnostics since last visit? None? Senior Biostatistician/Group Leader Required: Yes Senior Biostatistician/Group Leader Services: Senior Biostatistician/Group Leader Present Senior Biostatistician/Group Leader Name: Markell [id number] Information Interpreted: non-clinical & clinical Accompanied by: Self / Same As Patient Allergies No Known Allergies Allergy (Verified 08/25/24 07:55) HPI HPI 6 month follow up PT N/S last appt: Details: LAST VISIT: Chronic idiopathic constipation Continue Senokot. Patient was also encouraged to increase fluid intake and activity to promote better bowel motility. IBS (irritable bowel syndrome) Continue low FODMAP diet. Patient was also encouraged to lose weight. Increase fluid intake and activity to promote better bowel motility. GERD (gastroesophageal reflux disease) Omeprazole 20 mg half an hour before breakfast and half an hour before dinner. Discussed with patient triggers and late night snacking. Staying upright for minimum 3 hours after meals discussed with patient. I will see patient in 6 months, sooner on as needed basis. Patient is agreeable to this plan and verbalizes understanding of instructions. She was given the opportunity to ask questions and all questions answered. ? Thank you for allowing me to participate in her care Plan Medications New omeprazole 20 mg PO BID 180 caps 0RF Refilled sennosides (Natural Senna Laxative) 17.2 mg (2 x 8.6 mg) PO BEDTIME 180 tabs 3RF constipation K59.00 - Constipation, unspecified Discontinued polyethylene glycol 3350 Discontinued Reason: Patient no longer taking 17 grams PO DAILY 510 grams 2RF TODAY'S VISIT Patient is here today for follow-up. Patient was last seen in April of 2023, has not followed up in this office as recommended.. Patient continues to have epigastric pain postprandially and acid reflux. Currently she is not taking omeprazole her prescription ran out. Patient is not of trying to avoid any food, does not have any dietary restrictions. Denies any nausea or vomiting. Reports occasional dyspepsia without dysphagia or odynophagia. Patient reports abdominal bloating does not matter what reports that she moves her bowels, however she admits this does not bowel movement she feels like she is not finished. Patient denies melena, hematochezia, unintentional weight loss or ribbon like stools. [facility] Medical History Incisional hernia Glaucoma Long QT interval Knee pain Cardiomyopathy CHF (congestive heart failure) [place] on CPAP Depression Heartburn Morbid obesity Dizziness Acid reflux Anxiety Panic attack HTN (hypertension) Hernia, umbilical Surgical History History of umbilical hernia repair (10/08/22) Hx of umbilical hernia repair Hx of colonoscopy History of hysterectomy H/O ventral hernia repair Social History Are you a primary nurse healthcare manager to a significant other at home: No Do you presently have visiting nurse or other home services: No Alcohol intake: never Patient Tobacco Use Status: Former Tobacco user Tobacco use type: Cigarette Smoked in Last 30 Days: Yes Use of substances other than those prescribed or required for medical reasons: No Advance Directives: No Advance Directives Information Provided: Yes Do you have a plan to hurt others: No Plan Review of Systems Const Denies weight gain and Denies weight loss ENT Reports no additional complaints, Denies dysphagia and Denies odynophagia Card Reports no additional complaints Resp Reports no additional complaints GI Denies abdominal pain, Denies belching, Denies melena, Denies bloating, Denies change in bowel habits, Denies dysphagia, Denies excessive flatus, Denies dyspepsia, Reports heartburn, Denies diarrhea, Denies loose stools, Denies nausea, Denies odynophagia and Denies vomiting Reports no additional complaints Musc Reports no additional complaints Neuro Reports no additional complaints Psych Reports no additional complaints Endo Reports no additional complaints Physical Exam Vital Signs: Last Vital Signs Pulse 66 08/19/24 12:03 BP 132/62 08/19/24 12:03 Pulse Ox 97 08/19/24 12:03 Oxygen Delivery Method Room Air 08/19/24 12:03 BMI result Body Mass Index 59.4 Const General: healthy appearing and no acute distress Nutritional Appearance: obese Orientation/consciousness: patient oriented x3 Resp Effort & Inspection: normal respiratory effort, able to speak in complete sentences, no tracheal deviation and symmetric chest movement Auscultation: clear to auscultation bilaterally Cardio Rate: regular rate GI Inspection: Yes normal to inspection, No distended and Yes obesity Palpation (GI): Soft to palpation, not firm, nontender and No hepatosplenomegaly present Auscultation: normal bowel sounds General: Yes no CVA tenderness Back/Spine/Pelvis Back: no CVA tenderness Skin General skin exam: elasticity normal, turgor normal and dry skin Neuro General: patient oriented x3 Psych Appearance: grossly normal Mental Status: mental status grossly normal Assessment & Plan Assessment & Plan (1) Chronic idiopathic constipation: Code(s): K59.04 - Chronic idiopathic constipation (2) IBS (irritable bowel syndrome): Code(s): K58.9 - Irritable bowel syndrome, unspecified Qualifiers: Irritable bowel syndrome type: without diarrhea Qualified Code(s): K58.9 - Irritable bowel syndrome, unspecified (3) GERD (gastroesophageal reflux disease): Code(s): K21.9 - Gastro-esophageal reflux disease without esophagitis Qualifiers: Esophagitis presence: esophagitis presence not specified Qualified Code(s): K21.9 - Gastro-esophageal reflux disease without esophagitis (4) Postprandial epigastric pain: Code(s): R10.13 - Epigastric pain Plan Patient will start taking omeprazole daily. Avoid dietary triggers and late night snacking. Continue MiraLax in the morning and senna at bedtime. Increase fluid intake and activity to promote better bowel motility. Can take simethicone with food to stop the bloating. Patient will return in the office in 6 months, sooner on as needed basis. She is agreeable to this plan and verbalizes understanding of instructions. She was given the opportunity to ask questions and all questions answered. Thank you for allowing me to participate in her care Medications: New simethicone 125 mg PO QID PRN 90 tabs 3RF Gastrointestinal Spasms Or Cramping omeprazole 20 mg PO DAILY 90 caps 3RF Changed From polyethylene glycol 3350 17 grams PO DAILY To polyethylene glycol 3350 (Gavilax) 17 grams PO DAILY 510 grams 2RF Refilled sennosides (Natural Senna Laxative) 8.6 mg PO BEDTIME 30 tabs 0RF constipation Coding Level of Care Code Est Pt Level 3 (06304) Diagnoses Chronic idiopathic constipation K59.04 Irritable bowel syndrome without diarrhea K58.9 Irritable bowel syndrome type: without diarrhea Gastroesophageal reflux disease, unspecified whether esophagitis present K21.9 Esophagitis presence: esophagitis presence not specified Postprandial epigastric pain R10.13 Time Spent (min) 30 Comment 20 minutes spent with patient and additional 10 minutes spent reviewing her records
[2024-08-19 12:03] VITALS: BP 132/62; PULSE 66; O2SAT 97; BMI 59.4
== END 2024-08-19 12:57 | disposition home or self-care (01) ==
PROVIDERS: PCP Internal Medicine Geriatric Medicine; Visit Provider Nurse Practitioner Family
DX: K59.04 Chronic idiopathic constipation (principal); K58.9 Irritable bowel syndrome, unspecified; K21.9 Gastro-esophageal reflux disease without esophagitis; R10.13 Epigastric pain
CPT/HCPCS: 99213

== ENCOUNTER → 2024-08-19 11:51 | Outpatient (BNVA) | payer MEDICAID, SELFPAY | PROVIDERS: PCP Internal Medicine Geriatric Medicine; Visit Provider Nurse Practitioner Family | DX: K59.04 Chronic idiopathic constipation (principal); K58.9 Irritable bowel syndrome, unspecified; K21.9 Gastro-esophageal reflux disease without esophagitis; R10.13 Epigastric pain; Z79.899 Other long term (current) drug therapy | CPT/HCPCS: 99212 ==

== ENCOUNTER 2024-08-25 07:38 | Emergency (ER) | payer MEDICAID, SELFPAY ==
--- NOTE | ~2024-08-25 | CT_ITS ---
EXAMINATION: CT ABDOMEN AND PELVIS WITH CONTRAST CLINICAL INFORMATION: abdominal pain upper COMPARISON: CT abdomen/pelvis 09/13/2022 TECHNIQUE: Multidetector volumetric images were obtained from the superior aspect of the liver through the pubic symphysis following administration 85 mL of Omnipaque 350 intravenous contrast. Sagittal and coronal reformatted images were obtained on the technologist's workstation. Oral contrast: No This CT examination was performed using dose optimization techniques as appropriate, variously including the following: *Automated exposure control *Adjustment of mA and/or kV according to patient size (this includes techniques or standardized protocols for targeted exams where dose is matched to indication/reason for exam; i.e. extremities or head) *Use of iterative reconstruction technique DLP: 1487 mGy-cm FINDINGS: Photon starvation and motion artifact partially limits evaluation of the upper abdomen. LUNG BASES: Left lower lobe patchy opacities partially visualized, new from prior. Mild cardiomegaly without pericardial effusion. LIVER, GALLBLADDER, AND BILIARY TREE: The liver is normal in size, shape, and attenuation. No focal hepatic lesion or biliary ductal dilatation is present. The gallbladder is unremarkable with no evidence of radiopaque gallstones, gallbladder wall thickening, or obvious pericholecystic inflammatory changes. PANCREAS: Unremarkable. SPLEEN: Unremarkable. ADRENAL GLANDS: Unremarkable. KIDNEYS AND URETERS: The kidneys are normal in size, shape, and attenuation. No hydronephrosis, hydroureter, or calculi seen. No perinephric stranding. BLADDER: Unremarkable. GASTROINTESTINAL TRACT: The small and large bowel are unremarkable. The appendix is unremarkable. ABDOMINAL WALL: No significant hernia is appreciated. LYMPH NODES: Numerous retroperitoneal periaortic prominent though not pathologically enlarged lymph nodes, similar to 09/13/2022. VASCULAR: Unremarkable. PELVIC VISCERA: Status post hysterectomy. No adnexal masses. OSSEOUS STRUCTURES: No acute or suspicious osseous abnormality. Moderate multilevel thoracolumbar degenerative disc disease and spondylosis. CT/CT abdomen pelvis w IV con IMPRESSION: 1. No acute abnormality within the abdomen or pelvis. 2. Left lower lobe patchy opacities partially visualized, new from prior. Findings are concerning for pneumonia. Fleischner guidelines were followed. Electronically signed by: Anna Brumfield DO 08/25/2024 02:53 PM [facility]
--- NOTE | ~2024-08-25 | XR_ITS ---
EXAMINATION: XR CHEST CLINICAL INFORMATION: cough COMPARISON: 07/06/2015 TECHNIQUE: Frontal view of the chest was obtained. FINDINGS: Examination is limited by habitus. On this AP portable radiograph, there appeared to be bilateral perihilar opacities. No gross pleural effusions are detected. The cardiac silhouette is magnified by the AP XR/XR chest 1V IMPRESSION: 1. Extremely limited AP portable radiograph. 2. Probable bilateral perihilar opacities which could reflect pulmonary edema, pneumonia, etc. Suggest PA and lateral radiographs when the patient is able. Electronically signed by: Rui Narayan MD 08/25/2024 09:[address] [facility]
[2024-08-25 07:50] VITALS: BP 181/86; BP 192/82; PULSE 80; PULSE 83; RESP 20; TEMP 37.7; O2SAT 90; O2SAT 95; BMI 57.9
--- NOTE | 2024-08-25 08:13 | ED.ABDPAIN ---
HPI - Abdominal Pain General Chief Complaint: Abdominal Pain Stated Complaint: R FLANK/EPIGASTRIC PAIN X1W PER EMS Time Seen by Provider: 08/25/24 07:51 Source: patient Limitations: no limitations History of Present Illness HPI narrative: This is 53 years patient history of anxiety, obesity CHF, cardiomyopathy presented to the emergency department with chief complaint of upper abdominal pain epigastric pain started about a week ago denies any nausea vomiting MD elicited complaint: abdominal pain Pertinent past history: gastritis Onset (ago): week(s) (1) Pain Consistency: constant Location: epigastric Quality: cramping Radiation: none Migration to: no migration Exacerbating factors: nothing Related Data Home Medications ?Medication ?Instructions ?Recorded ?Confirmed carvedilol 25 mg tablet (Coreg) 25 mg PO BID 07/08/20 10/24/23 clonazepam 0.5 mg tablet 0.5 mg PO DAILY PRN Anxiety 07/08/20 10/24/23 hydrochlorothiazide 25 mg tablet 25 mg PO DAILY 07/08/20 10/24/23 hydralazine 25 mg tablet 25 mg PO BIDAC 11/28/21 10/24/23 acetaminophen 650 mg 1,300 mg PO Q6-8H PRN Pain 12/21/21 10/24/23 tablet,extended release sertraline 100 mg tablet 2 tab PO QAM 10/08/22 10/24/23 atorvastatin 20 mg tablet 20 mg PO DAILY 10/28/23 11/18/23 losartan 50 mg tablet 100 mg PO DAILY 11/18/23 11/18/23 Previous Rx's ?Medication ?Instructions ?Recorded omeprazole 20 mg capsule,delayed 20 mg PO DAILY #90 caps 08/19/24 release polyethylene glycol 3350 17 17 g PO DAILY #510 grams 08/19/24 gram/dose oral powder (Gavilax) simethicone 125 mg chewable tablet 125 mg PO QID PRN Gastrointestinal 08/19/24 Spasms Or Cramping #90 tabs amoxicillin 500 mg capsule 500 mg PO TID 7 days #21 caps 08/25/24 sennosides 8.6 mg tablet (Natural 8.6 mg PO BEDTIME constipation #90 08/25/24 Senna Laxative) tabs Allergies Allergy/AdvReac Type Severity Reaction Status Date / Time No Known Allergies Allergy Verified 08/25/24 07:55 Review of Systems Reports system reviewed and no additional complaints, except as documented Cardiovascular: Reports no additional cardiovascular complaints Comments: Abdomen is obese tenderness in the epigastric PMFSH Past Medical History Attestation statement: The following information was validated with the patient. Medical History Incisional hernia Glaucoma Long QT interval Knee pain Cardiomyopathy CHF (congestive heart failure) [place] on CPAP Depression Heartburn Morbid obesity Dizziness Acid reflux Anxiety Panic attack HTN (hypertension) Hernia, umbilical Surgical History History of umbilical hernia repair (10/08/22) Hx of umbilical hernia repair Hx of colonoscopy History of hysterectomy H/O ventral hernia repair Social History Social History Are you a primary healthcare representative to a significant other at home: No Do you presently have visiting nurse or other home services: No Alcohol intake: never Patient Tobacco Use Status: Former Tobacco user Tobacco use type: Cigarette Smoked in Last 30 Days: Yes Use of substances other than those prescribed or required for medical reasons: No Advance Directives: No Advance Directives Information Provided: Yes Do you have a plan to hurt others: No Plan Physical Exam ED Vital Signs: Vital Signs - 24 hr 08/25/24 07:50 08/25/24 09:59 08/25/24 15:27 Temperature 99.8 F 99.2 F Pulse Rate 83 74 94 Respiratory Rate 20 20 18 Blood Pressure 181/86 H 129/54 L 129/54 L Pulse Oximetry 90 L 93 93 Oxygen Delivery Method Room Air Room Air Room Air BMI result Body Mass Index 57.9 No acute distress Const General: cooperative Nutritional Appearance: well nourished Orientation/consciousness: patient oriented x3 Limitations: no limitations HENMT Head: Yes normal to inspection Face and sinus: Yes normal facial exam Neck Neck: Yes normal visual inspection and Yes full ROM Chest Chest palpation & inspection: normal inspection of the chest Resp Effort & Inspection: normal respiratory effort Auscultation: clear to auscultation bilaterally Cardio Jugular venous distension: no JVD Rate: regular rate Rhythm: regular rhythm GI Other: Abdomen is obese tenderness in the epigastric area Skin General skin exam: no rashes or lesions noted, elasticity normal and turgor normal Neuro General: patient oriented x3 Cranial nerves: Yes CN's II-XII intact bilaterally Course Reevaluation(s) Reevaluation #1: CT SCAN OF THE ABDOMEN AND PELVIS SHOWED NO BOWEL PATHOLOGY IN THE ABDOMEN OR PELVIS, THE LEFT LOWER LOBE SHOWS A PATCHY OPACITY WHICH IS NO FOR PRIOR IMAGING CONCERNING FOR PNEUMONIA. I WONDER IF THE ABDOMINAL PAIN IS DUE TO DIAPHRAGMATIC IRRITATION. I WILL DISCHARGE THE PATIENT ON AMOXICILLIN FOR LEFT LOWER LOBE PNEUMONIA. Time: 15:12 Medical Decision Making Medical Decision Making [facility] Narrative: Patient presented with epigastric abdominal pain we will get labs imaging Differential Diagnosis Gastritis/peptic ulcer disease/small-bowel obstruction Admission/Observation Consideration of admission/observation: Escalation of care including admission/observation considered Lab Data [facility] Lab Attestation statement: I reviewed the patient's lab results. 08/25/24 08:31 08/25/24 08:31 Labs: Lab Results 08/25/24 Range/Units 08:31 WBC 9.1 (4.8-10.8) X10*3/uL RBC 4.16 L (4.20-5.50) X10*6/uL Hgb 11.7 L (12.0-16.0) g/dl Hct 35.1 L (37.0-47.0) % MCV 84.4 (80.0-98.0) fL MCH 28.1 (27.0-33.0) pg MCHC 33.3 (31.0-35.0) g/dl RDW 14.6 (11.0-16.0) % Plt Count 254 (160-400) X10*3/uL MPV 10.9 (9.4-12.3) fL Immature Gran % (Auto) 0.6 H (0.0-0.4) % Neut % (Auto) 76.8 H (45-73) % Lymph % (Auto) 11.6 L (20-40) % [place] % (Auto) 8.6 (2-11) % Eos % (Auto) 1.8 (0-4) % Baso % (Auto) 0.6 (0-2) % Lymph # (Auto) 1.1 L (1.2-4.9) X10*3/uL [place] # (Auto) 0.8 (0.1-1.2) X10*3/uL Eos # (Auto) 0.2 (0.0-0.4) X10*3/uL Baso # (Auto) 0.1 (0.0-0.2) X10*3/uL Abs Immat Gran (auto) 0.05 H (0.00-0.03) X10*3/uL Absolute Neuts (auto) 7.0 (2.0-8.3) x10*3/uL Absolute Nucleated RBC 0.000 (0.0-0.012) X10*3/uL Nucleated RBC % (auto) 0.0 (0.0-0.2) /100WBC Sodium 137 (135-145) mmol/L Potassium 4.1 D (3.3-5.1) mmol/L Chloride 103 (96-108) mmol/L Carbon Dioxide 24 (22-29) mmol/L Anion Gap 14 (12-20) BUN 13 (9-16) mg/dL Creatinine 0.78 (0.5-1.4) mg/dL Estim Creat Clear Calc 132.5 Estimated GFR > 60 Random Glucose 105 (60-115) mg/dL Calcium 9.4 D (8.4-10.2) mg/dL Total Bilirubin 0.5 (0.0-1.0) mg/dL AST 60 H (5-31) U/L ALT 42 H (0-31) U/L Alkaline Phosphatase 147 H (39-117) U/L Troponin I High Sens 3.8 (<3.5-17.0) ng/L Total Protein 7.4 (6.5-8.0) g/dL Albumin 3.5 (3.5-5.0) g/dL Independent Interpretation I performed an independent interpretation of an: CT Scan Radiology Impression Discussion of test interpretation with radiology: I have reviewed the radiologist's reading. Radiologist Impression: PELVIC VISCERA: Status post hysterectomy. No adnexal masses. OSSEOUS STRUCTURES: No acute or suspicious osseous abnormality. Moderate multilevel thoracolumbar degenerative disc disease and spondylosis. CT/CT abdomen pelvis w IV con IMPRESSION: 1. No acute abnormality within the abdomen or pelvis. 2. Left lower lobe patchy opacities partially visualized, new from prior. Findings are concerning for pneumonia. Fleischner guidelines were followed. Electronically signed by: Anna Brumfield DO 08/25/2024 02:53 PM EST Dictated By: Angie Brumfield Medications Administered Discontinued Medications Generic Name Dose Route Start Last Admin Trade Name Boq PRN Reason Stop Dose Admin Al Hydroxide/Mg Hydroxide 30 ml 08/25/24 08:11 08/25/24 09:01 Magnesium Hydrox/Alum Hydrox 30 Ml Oral.Susp PO 08/25/24 08:12 30 ml ONCE ONE Administration Iohexol 100 ml 08/25/24 10:51 08/25/24 10:51 Iohexol 350 Mg/Ml 100 Ml Infus..Btl IV 08/25/24 10:52 100 ml ONCE ONE Administration Pantoprazole Sodium 40 mg 08/25/24 08:11 08/25/24 09:01 Pantoprazole Sodium 40 Mg/10 Ml Vial IVPUSH 08/25/24 08:12 40 mg ONCE ONE Administration Discharge Plan Discharge Clinical Impression: Abdominal pain Qualifiers: Abdominal location: upper abdomen, unspecified Qualified Code(s): R10.10 - Upper abdominal pain, unspecified Pneumonia Qualifiers: Pneumonia type: due to unspecified organism Laterality: left Lung location: lower lobe of lung Qualified Code(s): J18.9 - Pneumonia, unspecified organism Patient Disposition: Home, Self-Care Instructions: Abdominal Pain (ED) Additional Instructions: FOLLOW-UP WITH YOUR PRIMARY CARE PHYSICIAN, CT SCAN OF THE ABDOMEN AND PELVIS SHOWED NO BOWEL PATHOLOGY BUT LEFT LUNG PNEUMONIA WITH AN ANTIBIOTIC TO [facility] Prescriptions: New amoxicillin 500 mg capsule 500 mg PO TID 7 Days Qty: 21 0RF No Action sennosides [Natural Senna Laxative] 8.6 mg tablet 8.6 mg PO BEDTIME Qty: 90 0RF carvedilol [Coreg] 25 mg Tablet 25 mg PO BID clonazepam 0.5 mg Tablet 0.5 mg PO DAILY PRN (Reason: Anxiety) hydrochlorothiazide 25 mg Tablet 25 mg PO DAILY sertraline 100 mg tablet 2 tab PO QAM atorvastatin 20 mg tablet 20 mg PO DAILY losartan 50 mg tablet 100 mg PO DAILY hydralazine 25 mg tablet 25 mg PO BIDAC acetaminophen 650 mg tablet extended release 1,300 mg PO Q6-8H PRN (Reason: Pain) polyethylene glycol 3350 [Gavilax] 17 gram/dose powder 17 g PO DAILY Qty: 510 2RF simethicone 125 mg tablet,chewable 125 mg PO QID PRN (Reason: Gastrointestinal Spasms Or Cramping) Qty: 90 3RF omeprazole 20 mg capsule,delayed release(DR/EC) 20 mg PO DAILY Qty: 90 3RF Referrals: Name,MD Eusebio [Primary Care Provider] - 2 days Interventions: ED Discharge Assessment Last Done: 08/25/24 15:27 Discharge Date/Time: 08/25/24 15:27 Print Language: Kazakh
[2024-08-25 08:35] LABS: MANUAL DIFF FLAG NO
[2024-08-25 08:36] LABS: Basophils Absolute Auto 0.1 X10*3/uL (0.0-0.2); Basophils Percent Auto 0.6 % (0-2); Eosinophils Absolute Auto 0.2 X10*3/uL (0.0-0.4); Eosinophils Percent Auto 1.8 % (0-4); Hematocrit 35.1 % (37.0-47.0); Hemoglobin 11.7 g/dl (12.0-16.0); Imm Gran Abs Auto 0.05 X10*3/uL (0.00-0.03); Imm Gran Pct Auto 0.6 % (0.0-0.4); Lymphocytes Absolute Auto 1.1 X10*3/uL (1.2-4.9); Lymphocytes Percent Auto 11.6 % (20-40); Mean Corpuscular HGB Conc 33.3 g/dl (31.0-35.0); Mean Corpuscular Hemoglobin 28.1 pg (27.0-33.0); Mean Corpuscular Volume 84.4 fL (80.0-98.0); Mean Platelet Volume 10.9 fL (9.4-12.3); Monocytes Absolute Auto 0.8 X10*3/uL (0.1-1.2); Monocytes Percent Auto 8.6 % (2-11); Neutrophils Percent Auto 76.8 % (45-73); Platelet Count 254 X10*3/uL (160-400); Red Blood Count 4.16 X10*6/uL (4.20-5.50); Red Cell Distribution Width 14.6 % (11.0-16.0); White Blood Count 9.1 X10*3/uL (4.8-10.8)
[2024-08-25 08:54] LABS: Albumin Level 3.5 g/dL (3.5-5.0); Anion Gap 14 (12-20); Aspartate Amino Transferase 60 U/L (5-31); Bilirubin Total 0.5 mg/dL (0.0-1.0); Blood Urea Nitrogen 13 mg/dL (9-16); Calcium 9.4 mg/dL (8.4-10.2); Carbon Dioxide 24 mmol/L (22-29); Chloride 103 mmol/L (96-108); Creatinine Clr Calc Pharmacy 132.5; Estimated Glomerular Filt Rate > 60; Glucose Random 105 mg/dL (60-115); Potassium 4.1 mmol/L (3.3-5.1); Sodium 137 mmol/L (135-145); Total Protein 7.4 g/dL (6.5-8.0)
[2024-08-25 08:59] LABS: Troponin-I High Sensitivity 3.8 ng/L (<3.5-17.0)
[2024-08-25] MEDS: Pantoprazole Sodium 40 MG/10 ML VIAL IVPUSH (09:01)
[2024-08-25] MEDS: Magnesium Hydrox/Alum Hydrox 30 ML ORAL.SUSP PO (09:01)
[2024-08-25 09:38] LABS: Alanine Aminotransferase 42 U/L (0-31); Alkaline Phosphatase 147 U/L (39-117)
[2024-08-25 09:59] VITALS: BP 129/54; PULSE 74; RESP 20; O2SAT 93
[2024-08-25] MEDS: iohexoL 350 MG/ML 100 ML INFUS..BTL IV (10:51)
[2024-08-25 15:27] VITALS: BP 129/54; PULSE 94; RESP 18; TEMP 37.3; O2SAT 93
== END 2024-08-25 15:27 | disposition home or self-care (01) ==
PROVIDERS: Emergency Provider Emergency Medicine; PCP Internal Medicine Geriatric Medicine
DX: R10.10 Upper abdominal pain, unspecified (principal); J18.9 Pneumonia, unspecified organism; I11.0 Hypertensive heart disease with heart failure; I50.9 Heart failure, unspecified; R10.13 Epigastric pain; Z79.899 Other long term (current) drug therapy
CPT/HCPCS: 36415; 71045; 74177; 80053; 84484; 85025; 96374; 99284; J2470; Q9967

== ENCOUNTER 2024-10-01 06:04 | Outpatient (REF) | payer MEDICAID, SELFPAY ==
[2024-10-01 07:10] LABS: Anion Gap 13 (12-20); Blood Urea Nitrogen 21 mg/dL (9-16); Calcium 10.4 mg/dL (8.4-10.2); Carbon Dioxide 32 mmol/L (22-29); Chloride 103 mmol/L (96-108); Estimated Glomerular Filt Rate > 60; Glucose Random 107 mg/dL (60-115); Potassium 3.6 mmol/L (3.3-5.1); Sodium 144 mmol/L (135-145)
[2024-10-01 07:51] LABS: Creatinine Urine 119.83 mg/dL; Microalbum/Creatinine Ratio Ur 27.5 ug/mg cr (<30)
== END 2024-10-01 06:05 | disposition home or self-care (01) ==
LOC: HO.LAB 06:04
PROVIDERS: PCP Internal Medicine Geriatric Medicine; Visit Provider Internal Medicine Geriatric Medicine
DX: E87.6 Hypokalemia (principal); I10 Essential (primary) hypertension
CPT/HCPCS: 36415; 80048; 82043; 82570

== ENCOUNTER 2025-01-22 13:00 | Outpatient (REF) | payer MEDICAID, SELFPAY ==
--- OUTSIDE RECORDS SUMMARY | 2025-01-22 13:04 | XMS_ITS | Encounter Summary ---
Author Organization [employer] Address [address] h Floor [place] [id number] Care Team Providers Care News Clerk Name Role Phone Name, Eusebio STARK Primary Care Provider [phone] Irma Martinez PharmD Unavailable [phone] Reason for Visit * Reason Comments Nasal Congestion Encounter Details Date Type Department Care Team ([facility] Contact Info) Description 01/18/2025 9:00 AM EDT Office Visit [facility] [address] [place] [address] Janice Madden NP [address] [place] [address] Tobacco dependence (Primary Dx); Wheeze Social History Tobacco Use Types Packs/Day Years Used Date Smoking Tobacco: Some Days Cigarettes Passive Smoke Exposure: Past Smokeless Tobacco: Never Alcohol Use Standard Drinks/Week Comments Never 0 (1 standard drink = 0.6 oz pur e alcohol) Alcohol Answer Date Recorded Frequency of Alcohol Consumption Not on file 04/09/2024 Average Number of Drinks Not on file 024 Frequency of Binge Drinking Not on file 03/17 Score 0 04/09/2024 Depression Answer Date Recorded Patient Health Questionnaire-9 Score 0 10/23/2023 Patient Health Questionnaire-9 Score 0 10/23/2023 Last PHQ-9: Questionnaire Data Not on file 0 10/23/2023 Housing Stability Answer Date Recorded What is your housing situation today? I have bennie raman 10/23/[address] you li ve. Do you have problems with any of the following? None of the above 10/23/2023 Food Insecurity Answer Date Recorded Within the past 12 months, y ou worried that your food would run out before you got money to buy more: Never True 10/23/2023 Within the past 12 months,th e food you bought just didn't last and you didn't have enough money to get more: Never True 03/2024 Transportation Answer Date Recorded In the past 12 months, has l ack of transportation kept you from medical appts, meetings, work or from getting things needed for daily living? No 10/23/2023 Utilities Answer Date Recorded In the past 12 months, has t he [employer], gas, oil or water company threatened to shut off services in your home? No 10/23/2023 Depression Answer Date Recorded Patient Health Questionnaire-2 Score 0 10/23/2023 Comments Unknown Sex and Gender Information Value Date Recorded Sex Assigned at Female 07/16/2022 10:18 AM EDT Legal Sex Female 10:18 AM EDT Gender Identity Female 07/16/2022 10:18 AM EDT Sexual Orientation Don't know 07/16/2022 10 :18 AM EDT documented as of this encounter Last Filed Vital Signs Vital Sign Reading Time Taken Comments Blood Pressure 156/75 01/18/2025 8:53 AM EDT Pulse 81 01/18/2025 8:53 AM EDT Temperature 36.7 ??C (98.1 ??F) 01/18/2025 8:53 AM ED T Respiratory Rate 18 01/18/2025 8:53 AM EDT Oxygen Saturation 98% 01/18/2025 8:53 AM EDT Inhaled Oxygen Concentration - - Weight 150 kg (330 lb) 01/18/2025 8:53 AM EDT Height - - Body Mass Index 54.91 09/17/2024 11:09 AM EST documented in this encounter Progress Notes * Janice Madden NP - 01/18/2025 9:00 AM EDT Subjective: Yamilex Powers is a 54 y.o. female who presents to the office for a sick visit. HPI Was cleaning and mixed bleach and inhaled these fumes, developed a chest burning with breathing Naga sob, and feels a tightness in chest Ever since the inhalents Initially a bit of wheeze, does not have inhalers at home, Did help some (used brothers inhaler) Not smoking today, has patches at home, at baseline uses nicotine but motivated to quit Patient Active Problem List Diagnosis Anxiety Uterine leiomyoma QT prolongation Obstructive sleep apnea of adult Morbid obesity (CMS/HCC) Knee pain Insomnia Hypertension Heartburn H/O: hysterectomy Osteoarthritis of knee Dizziness Depression Chronic systolic heart failure (CMS/HCC) Cardiomyopathy (CMS/HCC) S/P hernia repair Lumbosacral spondylosis Muscle spasm of back Right hip pain Sacroiliac joint dysfunction of right side Sacroiliac joint pain Sacroiliitis (CMS/HCC) Spinal stenosis at L4-L5 level History of incisional hernia repair Chronic nasal congestion Tobacco dependence Wheeze Review of Systems Constitutional: Negative for activity change, appetite change, fatigue, fever and unexpected weightchange. Respiratory: Positive for shortness of breath and wheezing. Negative for cough and choking. Cardiovascular: Negative for chest pain and leg swelling. Gastrointestinal: Negative for abdominal distention. Genitourinary: Negative for difficulty urinating. Neurological: Negative for dizziness, speech difficulty and light-headedness. No Known Allergies Objective: Visit Vitals BP (!) 156/75 (BP Location: Left arm, Patient Position: Sitting, BP Cuff Size: Large adult) Pulse 81 Temp 98.1 ??F (36.7 ??C) (Temporal) Resp 18 Wt 330 lb (150 kg) SpO2 98% BMI 54.91 kg/m?? Smoking Status Some Days BSA 2.62 m?? Physical Exam Constitutional: Appearance: She is obese. Cardiovascular: Heart sounds: Normal heart sounds. Pulmonary: Breath sounds: No stridor. Wheezing present. No rhonchi. Abdominal: General: There is no distension. Musculoskeletal: Cervical back: Neck supple. No tenderness. Neurological: Mental Status: She is alert. Assessment/Plan: Problem List Items Addressed This Visit Tobacco dependence - Primary Current Assessment & Plan Encouraged ongoing cessation, pt has nicotine replacement patches at home, declines further assistance today Wheeze Current Assessment & Plan Pt with expiratory wheeze, endorses benefit from brothers inhaler No fever, no cough Trial inhaler q 6 hours prn for wheeze Return to clinic for any increased symptoms or failure to resolve Current Outpatient Medications Medication Sig Dispense Refill albuterol 108 (90 Base) MCG/ACT inhaler Inhale 2 puffs every 6 (six) hours if needed for wheezing. 18 g 2 atorvastatin (Lipitor) 20 MG tablet TAKE 1 TABLET BY MOUTH EVERY DAY 90 tablet 1 carvedilol (Coreg) 25 MG tablet Take 1 tablet by mouth with breakfast and with evening meal. clonazePAM (KlonoPIN) 0.5 MG tablet Take 1 tablet by mouth if needed each day. GaviLAX 17 GM/SCOOP powder Take 17 g by mouth 1 (one) time each day. Mix with 8 oz of water before drinking. hydrALAZINE (Apresoline) 25 MG tablet Take 1 tablet by mouth with breakfast and with evening meal. losartan-hydroCHLOROthiazide (Hyzaar) 100-25 MG tablet Take 1 tablet by mouth Once per day. 90 tablet 3 melatonin 5 MG tablet Take 1 tablet (5 mg) by mouth at bedtime. 30 tablet 11 meloxicam (Mobic) 7.5 MG tablet TAKE 1 TABLET BY MOUTH EVERY DAY 30 tablet 0 nicotine (Nicoderm, Step 3) 7 MG/24HR patch Apply 1 patch, as directed, every 24 hours. May remove at bedtime if needed & replace the next morning. Rotate application site. 14 patch 2 omeprazole (PriLOSEC) [address] capsule TAKE 1 CAPSULE BY MOUTH EVERY DAY 30 MINUTES TO 1 HOUR BEFORE A MEAL 90 capsule 1 Senna-Time 8.6 MG tablet Take 1 tablet by mouth at bedtime. sertraline (Zoloft) 100 MG tablet Take 2 tablets by mouth in the morning. simethicone (Mylicon) 125 MG chewable tablet TAKE 1 TABLET 4 TIMES A DAY AFTER MEALS AND AT BEDTIMEAS NEEDED FOR GAS 90 tablet 1 Tirzepatide-Weight Management (Zepbound) 10 MG/0.5ML solution auto-injector Inject 0.5 mL (10 mg) under the skin 1 (one) time per week. 2 mL 11 No current facility-administered medications for this visit. Visit Conducted in: Bahraini Translation by: Provided by [facility] staff member Torres KERN , documented in this encounter Miscellaneous Notes * Assessment & Plan Note - Janice Madden NP - 01/18/2025 9:21 AM EDTAssociated Problem(s): Wheeze Pt with expiratory wheeze, endorses benefit from brothers inhaler No fever, no cough Trial inhaler q 6 hours prn for wheeze Return to clinic for any increased symptoms or failure to resolve * Assessment & Plan Note - Janice Madden NP - 01/18/2025 9:21 AM EDTAssociated Problem(s): Tobacco dependence Encouraged ongoing cessation, pt has nicotine replacement patches at home, declines further assistance today documented in this encounter Plan of Treatment Upcoming Encounters Date Type Department Care Team (Late st Contact Info) Description 01/27/2025 11:30 AM EDT Office Visit [facility] [address] [place] [phone] Eusebio Ramey MD [address] [place] [address] 02/12/2025 10:00 AM EDT Medication Management [facility] [address] [place] [phone] Irma Martinez PharmD [address] [place] [phone] documented as of this encounter Visit Diagnoses Diagnosis Tobacco dependence- Primary Tobacco use disorder Wheeze Wheezing documented in this encounter Additional Health Concerns Assessment Noted Time PHQ-9 Depression Total Score: 0 10/23/19 24 2:25 PM EST documented as of this encounter Care Teams News Clerk Relationship Specialty Start Date End Date Eusebio Ramey MD [address] [place] [phone] PCP - General Family Medicine 09/29/15 Irma Martinez PharmD [address] [place] [phone] Pharmacist Internal Medicine 11/04/24 documented as of this encounter
--- OUTSIDE RECORDS SUMMARY | 2025-01-22 13:04 | XMS_ITS | Encounter Summary ---
Author Organization [employer] Address [address] [facility] 7t [place] [address] Care Team Providers Care Family And Consumer Sciences Professor Name Role Phone Name, Eusebio STARK Primary Care Provider [phone] Irma Martinez PharmD Unavailable [phone] Encounter Details Date Type Department Care Team (Late st Contact Info) Description 08/31/2022 Orders Only [facility] [address] [place] [phone] Yamila Eller LPN Social History Tobacco Use Types Packs/Day Years Used Date Smoking Tobacco: Never Assessed Comments Unknown Sex and Gender Information Value Date Recorded Sex Assigned at Female 07/16/2022 10:18 AM EDT Legal Sex Female 10:18 AM EDT Gender Identity Female 07/16/2022 10:18 AM EDT Sexual Orientation Don't know 07/16/2022 10 :18 AM EDT documented as of this encounter Plan of Treatment Upcoming Encounters Date Type Department Care Team (Late st Contact Info) Description 01/27/2025 11:30 AM EDT Office Visit [facility] [address] [place] [phone] Name, MD Eusebio [address] [place] [address] 02/12/2025 10:00 AM EDT Medication Management [facility] [address] [place] [address] Irma Martinez, PharmD [address] [place] [address] documented as of this encounter Procedures Procedure Name Priority Date/Time Associated Diagnosis Comments CREATININE, SERUM Routine 10/08/2022 11: 02 AM EST documented in this encounter Results * Creatinine, Serum (10/08/2022 11:02 AM EST) Creatinine, Serum 0.84 0.5 - 1.4 mg/dL [facility] Creatinine Clr Calc Pharmacy 121.0 [facility] Comment:Provided height and weight: 165.1 cm,156.489 kg.eGFR (calculated from the MDRD study equation) and eCrCl(calculated from the Cockcroft-Gault equation) are based ondifferent parameters and may not yield comparable results.If eCrCl result is absurd, please check patient'sheight/weight. Estimated Glomerular Filt Rate >60 [facility] Comment:NOTE: For -Am erican individuals, multiply the result by 1.210.Chronic Kidney Disease: Estimated GFR < 60 mL/min/1.48k3Foyhbk Kidney Disease: Estimated GFR < 15 mL/min/1.73m2 10/08/2022 11:0 2 AM EST 10/08/2022 11:04 AM EST us [facility] External Provider LAB BLO OD ORDERABLES Final Result [facility] [address] [place] [address] [phone] documented in this encounter Visit Diagnoses Not on filedocumented in this encounter Care Teams Family And Consumer Sciences Professor Relationship Specialty Start Date End Date Name, MD Eusebio [address] [place] [address] [phone] PCP - General Family Medicine 09/29/15 Irma Martinez PharmD [address] [place] [address] [phone] Pharmacist Internal Medicine 11/04/24 documented as of this encounter
--- OUTSIDE RECORDS SUMMARY | 2025-01-22 13:04 | XMS_ITS | Encounter Summary ---
Author Organization [employer] Address [address] [facility] 7t [place] [address] Care Team Providers Care Torch Straightener Name Role Phone Name, Eusebio STARK Primary Care Provider [phone] Irma Martinez PharmD Unavailable [phone] Encounter Details Date Type Department Care Team ([facility] Contact Info) Description 02/07/2023 Abstract [facility] [address] [place] [address] NameEusebio MD [address] [place] [address] Social History Tobacco Use Types Packs/Day Years Used Date Smoking Tobacco: Former Cigarettes Passive Smoke Exposure: Past Smokeless Tobacco: Never Alcohol Use Standard Drinks/Week Comments Never 0 (1 standard drink = 0.6 oz pur e alcohol) Depression Answer Date Recorded Patient Health Questionnaire-2 Score 0 09/28/2022 Comments Unknown Sex and Gender Information Value Date Recorded Sex Assigned at Female 07/16/2022 10:18 AM EDT Legal Sex Female 10:18 AM EDT Gender Identity Female 07/16/2022 10:18 AM EDT Sexual Orientation Don't know 07/16/2022 10 :18 AM EDT documented as of this encounter Plan of Treatment Upcoming Encounters Date Type Department Care Team ([facility] Contact Info) Description 01/27/2025 11:30 AM EDT Office Visit [address] [phone] NameEusebio MD [address] [place] [address] 02/12/2025 10:00 AM EDT Medication Management [facility] [address] [place] [address] Irma Martinez PharmD [address] [place] [address] documented as of this encounter Procedures Procedure Name Priority Date/Time Associated Diagnosis Comments COLONOSCOPY Routine 01/05/2022 1:12 PM EDT HM PAP/HPV Routine 01/08/2019 12:00 AM EDT documented in this encounter Results * Hm Colonoscopy (01/05/2022 1:12 PM EDT) Colonoscopy Normal Normal Narrative Nallely Mendoza - 01/05/2022 1:12 PM EDT Recommended 10 year follow up Historical Provider HEALTH MAINTENANCE Final Result * Pap Smear (01/08/2019 12:00 AM EDT) Historical Provider HEALTH MAINTENANCE Final Result documented in this encounter Visit Diagnoses Not on filedocumented in this encounter Care Teams Torch Straightener Relationship Specialty Start Date End Date Name, MD Eusebio [address] [place] [phone] PCP - General Family Medicine 09/29/15 Irma Martinez, Chris [address] [place] [address] [phone] Pharmacist Internal Medicine 11/04/24 documented as of this encounter
--- OUTSIDE RECORDS SUMMARY | 2025-01-22 13:04 | XMS_ITS | Encounter Summary ---
Author Organization [employer] Address [address] [facility] 7t [place] [address] Care Team Providers Care Supply Chain Specialist Name Role Phone Name, Eusebio STARK Primary Care Provider [phone] Irma Martinez PharmD Unavailable [phone] Reason for Visit * Reason Comments Med Refill Encounter Details Date Type Department Care Team ([facility] Contact Info) Description 10/29/[address] [facility] [address] [place], [place] [phone] Name, MD Eusebio [address] [place] [address] Other cardiomyopathy (CMS/HCC) Social History Tobacco Use Types Packs/Day Years Used Date Smoking Tobacco: Former Cigarettes Passive Smoke Exposure: Past Smokeless Tobacco: Never Alcohol Use Standard Drinks/Week Comments Never 0 (1 standard drink = 0.6 oz pur e alcohol) Depression Answer Date Recorded Patient Health Questionnaire-9 [...] the past 12 months, has t he electric, gas, oil or water company threatened to [...] Description 01/27/2025 11:30 [address] EDT [address] [facility] [address] [place] [address] Name, MD Eusebio [address] [place] [phone] 02/12/2025 10:00 AM EDT Medication Management [facility] [address] [place] [address] Irma Martinez PharmD [address] [place] [phone] documented as of this encounter Visit Diagnoses Diagnosis Other cardiomyopathy (CMS/HCC) documented in this encounter Additional Health Concerns Assessment Noted Time PHQ-9 Depression Total Score: 0 10/23/19 24 2:25 PM EST documented as of this encounter Care Teams Supply Chain Specialist Relationship Specialty Start Date End Date Name, MD Eusebio [address] [place] [address] [phone] PCP - General Family Medicine 09/29/15 Irma Martinez PharmD [address] [place] [phone] Pharmacist Internal Medicine 11/04/24 documented as of this encounter
--- OUTSIDE RECORDS SUMMARY | 2025-01-22 13:04 | XMS_ITS | Encounter Summary ---
Author Organization [employer] Address [address] [facility] 7t [place] [address] Care Team Providers Care Authorizer Name Role Phone Name, Eusebio STARK Primary Care Provider [phone] Irma Martinez PharmD Unavailable [phone] Reason for Visit * Reason Comments Med Refill Encounter Details Date Type Department Care Team ([facility] Contact Info) Description 12/22/2022 Refill [facility] [address] [place] [address] Frances Hurtado FNP [address] [place] [address] Social History Tobacco Use Types Packs/Day Years [...] Upcoming Encounters Date Type Department Care Team ([facility] Contact Info) Description 01/27/2025 11:30 AM EDT Office Visit [facility] [address] [place] [address] 31853 Name, MD Eusebio [address] [place] [address] 02/12/2025 10:00 AM EDT Medication Management [facility] [address] [place] [address] Irma Martinez PharmD [address] [place] [address] documented as of this encounter Visit Diagnoses Not on filedocumented in this encounter Care Teams Authorizer Relationship Specialty Start Date End Date Name, MD Eusebio [address] [place] [address] 43909 PCP - General Family Medicine 09/29/15 Irma Martinez PharmD [address] [place] [address] [phone] Pharmacist Internal Medicine 11/04/24 documented as of this encounter
--- OUTSIDE RECORDS SUMMARY | 2025-01-22 13:04 | XMS_ITS | Encounter Summary ---
Author Organization [employer] Address [address] 7[address] [place] [address] Care Team Providers Care E Commerce Project Manager Name Role Phone Name, Eusebio STARK Primary Care Provider [phone] Irma Martinez PharmD Unavailable [phone] Reason for Visit * Reason Comments Med Refill Encounter Details Date Type Department Care Team ([facility] Contact Info) Description 07/06/2023 Refill [facility] [address] [place], [place] [phone] Name, MD Eusebio [address] [place] [address] Other cardiomyopathy (CMS/HCC); Essential hypertension Social History Tobacco Use Types Packs/Day Years Used Date Smoking Tobacco: Former Cigarettes Passive Smoke Exposure: Past Smokeless Tobacco: Never Alcohol Use Standard Drinks/Week Comments Never 0 (1 standard drink = 0.6 oz pur e alcohol) Housing Stability Answer Date Recorded What is your housing situation today? I have bennie raman 07/06/[address] you li ve. Do you have problems with any of the following? None of the above 07/06/2023 Food Insecurity Answer Date Recorded Within the past 12 months, y ou worried that your food would run out before you got money to buy more: Never True 07/06/2023 Within the past 12 months,th e food you bought just didn't last and you didn't have enough money to get more: Never True Transportation Answer Date Recorded In the past 12 months, has l ack of transportation kept you from medical appts, meetings, work or from getting things needed for daily living? No 07/06/2023 Utilities Answer Date Recorded In the past 12 months, has t he electric, gas, oil or water company threatened to shut off services in your home? No 07/06/2023 Depression Answer Date Recorded Patient Health Questionnaire-2 [...] Description 01/27/2025 11:30 AM EDT Office Visit [facility] [address] [place] [address] Name, MD Eusebio [address] [place] [phone] 02/12/2025 10:00 AM EDT Medication Management [facility] [address] [place] [phone] Irma Martinez, PharmD [address] [place] [address] documented as of this encounter Visit Diagnoses Diagnosis Other cardiomyopathy (CMS/HCC) Essential hypertension Unspecified essential hypertension documented in this encounter Care Teams E Commerce Project Manager Relationship Specialty Start Date End Date Name, MD Eusebio [address] [place] [phone] PCP - General Family Medicine 09/29/15 Irma Martinez, PharmD [address] [place] [phone] Pharmacist Internal Medicine 11/04/24 documented as of this encounter
--- OUTSIDE RECORDS SUMMARY | 2025-01-22 13:04 | XMS_ITS | Clinical Summary ---
Author Organization [employer] Address [address] [facility] [address] [place] [address] Care Team Providers Care Commissary Manager Name Role Phone Name, Eusebio STARK Primary Care Provider [phone] Irma Martinez PharmD Unavailable [phone] Allergies No known active allergies Medications simethicone (Mylicon) 125 MG chewable tabletIndications: Dyspepsia TAKE 1 TABLET 4 TIMES A DAY AFTER MEALS AND AT BEDTIME NEEDED FOR GAS 90 tablet 1 08/31/20 22 Active sertraline (Zoloft) 100 MG tablet Take 2 tablets by mouth in the morning. 09/13/20 22 Active Senna-Time 8.6 MG tablet Take 1 tablet by mouth at bedtime. 08/14/20 22 Active GaviLAX 17 GM/SCOOP powder Take 17 g by mouth 1 (one) time each day. Mix with 8 oz of water before drinking. 09/11/20 22 Active hydrALAZINE (Apresoline) 25 MG tablet Take 1 tablet by mouth with breakfast and with evening meal. 09/16/19 23 Active clonazePAM (KlonoPIN) 0.5 MG tablet Take 1 tablet by mouth if needed each day. 08/31/20 22 Active carvedilol (Coreg) 25 MG tablet Take 1 tablet by mouth with breakfast and with evening meal. 09/16/19 23 Active meloxicam (Mobic) 7.5 MG tablet TAKE 1 TABLET BY MOUTH EVERY DAY 30 tablet 06/04/20 24 Active omeprazole (PriLOSEC) [address] capsule TAKE 1 CAPSULE BY MOUTH EVERY DAY 30 MINUTES TO 1 HOUR BEFORE A MEAL 90 capsule 1 06/23/20 24 Active melatonin 5 MG tablet Take 1 tablet (5 mg) by mouth at bedtime. 30 tablet 11 09/17/19 25 026 Active nicotine (Nicoderm, Step 3) 7 MG/24HR patch Apply 1 patch, as directed, every 24 hours. May remove at bedtime if needed & replace the next morning. Rotate application site. 14 patch 2 11/04/19 25 Active atorvastatin (Lipitor) 20 MG tabletIndications: Other cardiomyopathy (CMS/HCC) TAKE 1 TABLET BY MOUTH EVERY DAY 90 tablet 1 12/02/19 25 Active losartan-hydroCHLO ROthiazide (Hyzaar) 100-25 MG tablet Take 1 tablet by mouth Once per day. 90 tablet 3 12/09/19 25 Active Tirzepatide-Weight Management (Zepbound) 10 MG/0.5ML solution auto-injector Inject 0.5 mL (10 mg) under the skin 1 (one) time per week. 2 mL 11 12/10/19 25 026 Active albuterol 108 (90 Base) MCG/ACT inhaler Inhale 2 puffs every 6 (six) hours if needed for wheezing. 18 g 2 01/19/20 25 025 Active nicotine (Nicoderm, Step 2) 14 MG/24HR patch Apply 1 patch, as directed, every 24 hours. May remove at bedtime if needed & replace the next morning. Rotate application site. 42 patch 11/04/19 25 025 Discontin ued(Thera py completed ) Active Problems Problem Noted Date Diagnosed Date Chronic nasal congestion 01/18/2025 Tobacco dependence 01/18/2025 Assessment & Plan (01/18/2025 9:21 AM EDT): Encouraged ongoing cessation, pt has nicotine replacement patches at home, declines further assistance today Wheeze 01/18/2025 Assessment & Plan (01/18/2025 9:21 AM EDT): Pt with expiratory wheeze, endorses benefit from brothers inhaler No fever, no cough Trial inhaler q 6 hours prn for wheeze Return to clinic for any increased symptoms or failure to resolve Lumbosacral spondylosis 12/05/2023 Muscle spasm of back 12/05/2023 Right hip pain 12/05/2023 Sacroiliac joint dysfunction of right side 12/04 Sacroiliac joint pain 12/05/2023 Sacroiliitis 12/05/2023 Spinal stenosis at L4-L5 level 12/05/2023 History of incisional hernia repair 12/05/2023 S/P hernia repair 10/17/2022 Overview (10/17/2022): surgery on 10/08/2022 for repair of the large incisional hernia. Operative findings were consistent with a large incisional hernia measuring approximately 10-11 cm H/O: hysterectomy 09/28/2022 Cardiomyopathy 09/28/2022 Overview (04/09/2023): non ischemic cardimyopathy EF 45% Has serial EKGs with Justin Obstructive sleep apnea of adult 10/10/2021 Uterine leiomyoma 02/26/2019 Dizziness 09/30/2018 Assessment & Plan (03/28/2024 1:04 PM EDT): Suspect brief orthostatic hypotension. No palpitations, no vertigo. Reassuring neuro exam. Monitor. Labs as ordered below today. Knee pain 04/08/2018 Chronic systolic heart failure 12/17/2016 Overview (04/09/2023): Not ischemic, EF 40-45% Follow with Justin Osteoarthritis of knee 02/15/2016 Heartburn 10/12/2015 QT prolongation 07/28/2013 Overview (09/28/2022): With significant improvement after lowering her dose of SSRI Morbid obesity 07/03/2012 Anxiety 04/14/2012 Insomnia 04/14/2012 Hypertension 04/14/2012 Depression 04/14/2012 Overview (09/28/2022): The patient has a prescribing psychiatric provider (Dr Jiang) Resolved Problems Problem Noted Date Diagnosed Date Resolved Date Ingrown nail of fourth toe of right foot 09/28/2022 12/05/2023 Left ventricular systolic dysfunction 12/06/2020 04/09/2023 Encounters Date Type Department Care Team Description 01/18/2025 9:00 AM EDT Office Visit [facility] [address] [place] [address] Janice Madden NP Tobacco dependence (Primary Dx); Wheeze 01/13/2025 Travel 12/10/2024 Telephone [facility] [address] [place] [address] NameEusebio MD Prior Auth Prescription 12/08/2024 Telephone [facility] [address] [place], [place] [phone] NameEusebio MD 12/08/2024 Travel 12/01/2024 Refill [facility] [address] [place] [address] NameEsuebio MD Other cardiomyopathy (CMS/HCC) 11/27/2024 Population Health Risk Score [facility] () Department [address] [address] Provider, Population Health Generic 11/04/2024 Telephone [facility] [address] [place], [place] [phone] NameEusebio MD PA 11/04/2024 Refill [facility] [address] [place], [place] [phone] Eusebio Ramey MD 11/04/2024 Travel from Last 3 Months Immunizations Name Administration Dates Next Due Hep B, adult 01/13/2025,11/04/2024,12/18/2023 Influenza injectable quadriv alent IIV4 with preservative 07/13/2019,06/10/2018,06/29/2016 Influenza injectable quadriv alent preservative free 05/25/2022,08/07/2021,06/06/2020 Influenza, IIV3, injectable 09/01/2015,1 ,07/22/2013,2011 Influenza, seasonal, injecta ble, preservative free 11/04/2024 PPD Test 09/01/2014 Pfizer Covid-19 Vaccine 12+ 11/04/2024 Pneumococcal Conjugate PCV 20 12/05/2023 Tdap 05/05/2018,05/06/2012 Zoster, Recombinant 08/15/2022,06/11/2022 Social History Tobacco Use Types Packs/Day Years Used Date Smoking Tobacco: Some Days Cigarettes Passive Smoke Exposure: Past Smokeless Tobacco: Never Tobacco Cessation:Ready to Q uit: Yes; Counseling Given: Yes Alcohol Use Standard Drinks/Week Comments Never 0 [...] your housing situation today? I have bennie lamine 10/23/[address] you li [...] Don't know 07/16/2022 10 :18 AM EDT Last Filed Vital Signs Vital Sign Reading Time Taken Comments Blood Pressure 156/75 01/18/2025 8:53 AM EDT Pulse 81 01/18/2025 8:53 AM EDT Temperature 36.7 ??C (98.1 ??F) 01/18/2025 8:53 AM ED T Respiratory Rate 18 01/18/2025 8:53 AM EDT Oxygen Saturation 98% 01/18/2025 8:53 AM EDT Inhaled Oxygen Concentration - - Weight 150 kg (330 lb) 01/18/2025 8:53 AM EDT Height 165.1 cm (5' 5 ) 09/17/2024 11:09 AM EST Body Mass Index 54.91 09/17/2024 11:09 AM EST Plan of Treatment Upcoming Encounters Date Type Department Care Team (Late st Contact Info) Description 01/27/2025 11:30 AM EDT Office Visit [facility] [address] [place] [phone] Name, MD Eusebio [address] [place] [address] 02/12/2025 10:00 AM EDT Medication Management [facility] [address] [place] [phone] PuiaIrma, PharmD [address] [place] [address] Health Maintenance Due Date Last Done Comments CT Colonography 1971 Dental Prophylaxis 1971 FIT DNA/Cologuard 1971 FIT 1971 FOBT 1970 Sigmoidoscopy 1971 Dental Oral Exam 11/05/2016 05/04/2016 Dental X-Ray: Bitewings 05/05/2017 05/04/2016 Dental X-Ray: Full Mouth 05/05/2019 05/04/2016 Cervical Cancer Screening 01/09/2024 HPV/Cotest 01/09/2024 01/08/2019 Pap Smear 01/09/2024 01/08/2019 Depression Screening 10/23/2024 10/23/2023, 10/23/19 24 SDOH Screening 10/23/2024 10/23/2023 Mammogram 12/30/2024 12/31/2023, 12/15, 12/26/2022, Additional history exists Alcohol/Substance Use Screening 04/09/2025 04/09/2024 Tobacco Screening 01/13/2026 01/13/2025 DTaP/Tdap/Td Vaccines (3 - Td or Tdap) 05/05/2028 05/05/2018, 05/06/2012 Lipid Panel 01/07/2029 01/08/2024, 08/14/2021 Colonoscopy 01/06/2032 01/05/2022 Colorectal Cancer Screening 01/06/2032 RSV Patients and Patients Aged 60 years or older (1 - 1-dose 75+ series) 2046 HIV Screening Completed 06/11/2022 Hepatitis C Screening Completed 06/11/2022 Zoster Vaccines Completed 08/15/2022, 06/11/2022 Pneumococcal Vaccine: 50+ Years Completed 12/05/2023 COVID-19 Vaccine Completed 11/04/2024, 03/2022, 08/07/2021, Additional history exists Influenza Vaccine Completed 11/04/2024, , 08/07/2021, Additional history exists Hepatitis B Vaccines Completed 01/13/2025, 11/04/2024, 12/18/2023 HIB Vaccines Aged Out No longer eligi ble based on patient's age to complete this topic HPV Vaccines Aged Out No longer eligi ble based on patient's age to complete this topic Hepatitis A Vaccines Aged Out No long er eligible based on patient's age to complete this topic IPV Vaccines Aged Out No longer eligi ble based on patient's age to complete this topic Meningococcal Vaccine Aged Out No marah swapna eligible based on patient's age to complete this topic RSV under 20 months Aged Out No longe r eligible based on patient's age to complete this topic Rotavirus Vaccines Aged Out No longer eligible based on patient's age to complete this topic Procedures Procedure Name Priority Date/Time Associated Diagnosis Comments LIPID PANEL, STANDARD Routine 01/08/2024 8:51 AM EDT High cholesterol BI MAMMOGRAM SCREENING TOMOSYNTHESIS BILATERAL Routine 12/31/2023 11:30 AM EDT ZZZ HISTORICAL HEPATITIS C AB W/REFL TO HCV RNA, QN, PCR Routine 06/11/2022 3:25 PM EDT HIV 1/2 ANTIGEN/ANTIBODY, FOURTH GENERATION W/RFL Routine 06/11/2022 3:25 PM EDT HM COLONOSCOPY Routine 01/05/2022 1:12 PM EDT ZZZ HISTORICAL HPV MRNA E6/E7 Routine 01/08/2019 10:58 AM EDT HM PAP/HPV Routine 01/08/2019 12:00 AM EDT INTRAORAL - COMPLETE SERIES OF RADIOGRAPHIC IMAGES Routine 05/04/2016 12:00 AM EDT COMPREHENSIVE ORAL EVALUATION - NEW OR ESTABLISHED PATIENT Routine 05/04/2016 12:00 AM EDT from Last 3 Months or Most Recently Relevant to Health Maintenance Results * (ABNORMAL) Lipid Panel, Standard (01/08/2024 8:51 AM EDT) Triglycerides 165(H) <150 mg/dL [facility] Comment:Desirable Triglyceri de: less than 150 mg/dLBorderline High Triglyceride 150-199 mg/dLHigh Triglyceride: 200-499 mg/dLVery High Triglyceride: greater than or equal to 5OO mg/dL Cholesterol 171 <200 mg/dL [facility] Comment:Desirable Cholestero l: less than 200 mg/dLBorderline High Cholesterol: 200-239 mg/dLHigh Cholesterol: greater than 239 mg/dL LDL Cholesterol Calculated 98 <100 mg/dL [facility] Comment:Desirable LDL: less than 100 mg/dLNear Optimal/Above Optimal LDL: 110- 129 mg/dLBorderline High LDL: 130-159 mg/dLHigh LDL: 160-189 mg/dLVery High LDL: greater than or equal to 190 mg/dL HDL Cholesterol 40(L) >40 mg/dL [facility] Comment:Desirable HDL: great er than 40 mg/dL Note: This HDL assay may give artificially low results in patients with liver disease. Blood Venous blood specimen / Unknown 01/08/2024 8:51 AM EDT 01/08/2024 8:51 AM EDT us Eusebio Ramey MD LAB BLOOD ORDERABLES Final Resul t [facility] [address] [place] [address] [phone] * BI Mammogram Screening Tomosynthesis Bilateral (12/31/2023 11:30 AM EDT) Anatomical Region Laterality Modality Breast Bilateral Mammography 12/31/2023 11:3 0 AM EDT Narrative 12/31/2023 11:48 AM EDT ? [facility] [place] ? [address] ?[place] [address] ? Mammography Report ? Signed ? Patient: Yamilex Powers ?MR#: [id number] ?? 81 ? : 1970 ?Acct:[id number] ? Age/Sex: 53 / F ?ADM Date: 12/31/23 ? Loc: HO.MAMMO ? Attending Dr: Eusebio Name MD ? Ordering Physician: Name,Eusebio MD ?Results: 1Negative ? Date of Service: 12/31/23 ?Follow Up: 1 Year From Orig ?? inal Mammogram ? Procedure(s): MM tomosynthesis screening BI ?? Accession Number(s): [id number] ? cc: Name,Eusebio STARK ? EXAMINATION: ?? MM SCREENING DIGITAL BREAST TOMOSYNTHESIS, BILATERAL ? CLINICAL INFORMATION: ? Screening. Asymptomatic. ? COMPARISON: ?? Mammography: This study is compared with prior exams dating back to ?? 2019. ? TECHNIQUE: ?? Digital breast tomosynthesis is performed in both the craniocaudal and ?? mediolateral oblique views along with computer-aided detection (CAD). ?? Synthesized 2D images are generated from the tomosynthesis. ? FINDINGS: ?? There are scattered areas of fibroglandular density (ACR BI-RADS breast ?? composition Category b). ? There are no significant masses, abnormal calcifications, or other ?? abnormalities. ? MM/MM tomosynthesis screening BI ?? IMPRESSION: ?? No mammographic evidence of malignancy. ? ASSESSMENT: ? BI-RADS BI-RADS 1 - Negative ? RECOMMENDATION: ?? Routine annual mammography screening. ? 1 year F/U ? This examination should not preclude the clinical evaluation of a ?? suspicious palpable abnormality. ? This patient's information was entered into a reminder system with a ?? target due date for their next mammogram. ? Dictated By: ?Bethanie Farias MD ? Signed By: ?<Electronically signed by Bethanie Farias MD in OV> ? 12/31/23 1144 ? DD/ 1130 ? TD/TT: ? Splunk Consultant: ? Procedure Note Marck, Image - 12/31/2023 [facility] [address] [place] [address] Mammography Report Signed Patient: Omero Powers#: [id number] [birth year] : 1970Acct:[id number] Age/Sex: 53 / FADM Date: 12/31/23 Loc: HO.MAMMO Attending Dr: Eusebio Ramey MD Ordering Physician: Eusebio Rameyults: 1Negative Date of Service: 12/31/23Follow Up: 1 Year From Orig inal Mammogram Procedure(s): MM tomosynthesis screening BI Accession Number(s): [id number] cc: Eusebio Ramey MD EXAMINATION: MM SCREENING DIGITAL BREAST TOMOSYNTHESIS, BILATERAL CLINICAL INFORMATION: Screening. Asymptomatic. COMPARISON: Mammography: This study is compared with prior exams dating back to 2019. TECHNIQUE: Digital breast tomosynthesis is performed in both the craniocaudal and mediolateral oblique views along with computer-aided detection (CAD). Synthesized 2D images are generated from the tomosynthesis. FINDINGS: There are scattered areas of fibroglandular density (ACR BI-RADS breast composition Category b). There are no significant masses, abnormal calcifications, or other abnormalities. MM/MM tomosynthesis screening BI IMPRESSION: No mammographic evidence of malignancy. ASSESSMENT: BI-RADS BI-RADS 1 - Negative RECOMMENDATION: Routine annual mammography screening. 1 year F/U This examination should not preclude the clinical evaluation of a suspicious palpable abnormality. This patient's information was entered into a reminder system with a target due date for their next mammogram. Dictated By: Bethanie Farias MD Signed By: <Electronically signed by Bethanie Farias MD in OV> 12/31/23 1144 DD/ 1130 TD/TT: Splunk Consultant: Eusebio Ramey MD IMG BI PROCEDURES Final Result * HEPATITIS C AB W/REFL TO HCV RNA, QN, PCR (06/11/2022 3:25 PM EDT) HEPATITIS C ANTIBODY NON-REACT SHAHNAZ NON-REACT SHAHNAZ [facility] INDEX 0.10 <1.00 [facility] Comment: ?? HCV antibody was non-reactive. There is no laboratory ?? evidence of HCV infection. ?? In most cases, no further action is required. However, if recent HCV exposure is suspected, a test for HCV RNA (test code 44639) is suggested. ?? For additional information please refer to http://education.Captalis.GoGo Tech/faq/BAY15c0 (This link is being provided for informational/ educational purposes only.) ?? 06/11/2022 3:25 PM EDT Ammy Thomas CONCRETE WALL GRINDER OPERATOR HISTORICAL/NON ORDERABLE L ABS Final Result [facility] [address] * HIV 1/2 ANTIGEN/ANTIBODY,FOURTH GENERATION W/RFL (06/11/2022 3:25 PM EDT) Pathologist [facility] HIV-1/2 ANTIGEN AND ANTIBODIES, 4TH GENERATION W/ REFLEX NON-REACT SHAHNAZ NON-REACT SHAHNAZ [facility] Comment: HIV-1 antigen and HIV-1/HIV-2 antibodies were not detected. There is no laboratory evidence of HIV infection. ?? PLEASE NOTE: This information has been disclosed to you from records whose confidentiality may be protected by state law. ??If your state requires such protection, then the state law prohibits you from making any further disclosure of the information without the specific written consent of the person to whom it pertains, or as otherwise permitted by law. A general authorization for the release of medical or other information is NOT sufficient for this purpose. ? For additional information please refer to http://Hatch.ZoomForth/faq/YMA624 (This link is being provided for informational/ educational purposes only.) ? The performance of this assay has not been clinically validated in patients less than 2 years old. ?? 06/11/2022 3:25 PM EDT Ammy Thomas CONCRETE WALL GRINDER OPERATOR LAB BLOOD ORDERABLES Final Result [facility] [address] [place] [address], * Hm Colonoscopy (01/05/2022 1:12 PM EDT) [facility] Colonoscopy Normal Normal Narrative Nallely Mendoza - 01/05/2022 1:12 PM EDT Recommended 10 year follow up Historical Provider MD HEALTH MAINTENANCE Final Result * HPV mRNA E6/E7 (01/08/2019 10:58 AM EDT) [facility] HPV mRNA E6/E7 Not Detected NOT DETECTED [facility] Comment: This test was performed using the APTIMA(R) HPV Assay ([employer] This assay detects E6/E7 viral messenger RNA (mRNA) from 14 high-risk HPV types (16,18,31,33,35,39,45,51, 52,56,58,59,66,68). For additional information please refer to: http://education.Captalis.GoGo Tech/faq/BEM850i7 (This link is being provided for informational/ educational purposes only.) The analytical performance characteristics of this assay have been determined by [employer] [place], [place]. The modifications have not been cleared or approved by the FDA. This assay has been validated pursuant to the CLIA regulations and is used for clinical purposes. Test Performed by [facility], [employer] [facility] [place], [address] [place] [address] Anthony Quinn M.D., Ph.D., Director of Laboratories , CLIA [id number] Please note: ??Effective 05/28/2016, HPV testing will be performed using [employer]'s APTIMA test which targets mRNA. Detecting mRNA instead of DNA, as in older methods, offers significant improvements in specificity. 01/08/2019 10:5 8 AM EDT us Historical Provider HISTORICAL/NON ORDERABLE LABS Final Result [facility] [address] * Hm Pap Smear (01/08/2019 12:00 AM EDT) us Historical Provider HEALTH MAINTENANCE Final Result from Last 3 Months or Most Recently Relevant to Health Maintenance Insurance [facility] C[facility] * Guarantor: Yamilex Powers Account Type Relation to Patient Date of Phone Billing Address Personal/Family Self [address] [place] Care Teams Commissary Manager Relationship Specialty Start Date End Date Name, MD Eusebio [address] [place] [address] PCP - General Family Medicine 09/29/15 Irma Martinez PharmD [address] [place] [address] Pharmacist Internal Medicine 11/04/24
--- OUTSIDE RECORDS SUMMARY | 2025-01-22 13:04 | XMS_ITS | Encounter Summary ---
Author Organization [employer] Address [address] [facility] 7t [place] [address] Care Team Providers Care Vacuum Spindle Sander Name Role Phone Name, Eusebio STARK Primary Care Provider [phone] Irma Martinez PharmD Unavailable [phone] Reason for Visit * Reason Comments Med Refill Encounter Details Date Type Department Care Team ([facility] Contact Info) Description 03/18/2024 Refill [facility] [address] [place], [place] [phone] Name, MD Eusebio [address] [place] [address] Morbid obesity (CMS/HCC) Social History Tobacco Use Types Packs/Day [...] Description 01/27/2025 11:30 AM EDT Office Visit [facility] [address] [place] [phone] Name, MD Eusebio [address] [place] [phone] 02/12/2025 10:00 AM EDT Medication Management [address] [address] Irma Martinez PharmD [address] [place] [phone] documented as of this encounter Visit Diagnoses Diagnosis Morbid obesity (CMS/HCC) Morbid obesity documented in this encounter Additional Health Concerns Assessment Noted Time PHQ-9 Depression Total Score: 0 10/23/19 24 2:25 PM EST documented as of this encounter Care Teams Vacuum Spindle Sander Relationship Specialty Start Date End Date Name, MD Eusebio [address] [place] [phone] PCP - General Family Medicine 09/29/15 Irma Martinez PharmD [address] [place] [phone] Pharmacist Internal Medicine 11/04/24 documented as of this encounter
--- OUTSIDE RECORDS SUMMARY | 2025-01-22 13:04 | XMS_ITS | Encounter Summary ---
Author Organization [employer] Address [address] [facility] [address] 7[address] [place] [address] Care Team Providers Care Scrape Gatherer Name Role Phone Name, Eusebio STARK Primary Care Provider [phone] Irma Martinez PharmD Unavailable [phone] Reason for Visit * Reason Onset Date Comments Appointment Request 06/03/2024 Encounter Details Date Type Department Care Team ([facility] Contact Info) Description 06/03/2024 Telephone [facility] [address] [place], [place] [phone] Name, MD Eusebio [address] [place] [address] Appointment Request Social History Tobacco Use Types Packs/Day Years [...] AM EDT documented as of this encounter Miscellaneous Notes * Telephone Encounter - Urbano Lopez - 06/03/2024 1:38 PM EDT Tc from patient calling to schedule appt states was told by PCP to schedule appt within a month from last visit however production underwriter does not see any notes regarding that documented in this encounter Plan of Treatment Upcoming Encounters Date Type Department Care Team (Late st Contact Info) Description 01/27/2025 11:30 AM EDT Office Visit [facility] [address] [place] [phone] Name, MD Eusebio [address] [place] [address] 02/12/2025 10:00 AM EDT Medication Management [facility] [address] [place] [phone] Irma Martinez, PharmD [address] [place] [address] documented as of this encounter Visit Diagnoses Not on filedocumented in this encounter Additional Health Concerns Assessment Noted Time PHQ-9 Depression Total Score: 0 10/23/19 24 2:25 PM EST documented as of this encounter Care Teams Scrape Gatherer Relationship Specialty Start Date End Date Name, MD Eusebio [address] [place] [address] PCP - General Family Medicine 09/29/15 Irma Martinez PharmD [address] [place] [address] Pharmacist Internal Medicine 11/04/24 documented as of this encounter
== END 2025-01-22 13:01 | disposition home or self-care (01) ==
LOC: HO.MAMMO 13:00
PROVIDERS: Visit Provider Internal Medicine Geriatric Medicine
DX: Z12.31 Encounter for screening mammogram for malignant neoplasm of breast (principal)
CPT/HCPCS: 77063; 77067

== ENCOUNTER → 2025-01-22 15:45 | Outpatient (BNV) | payer MEDICAID, SELFPAY | PROVIDERS: Visit Provider Internal Medicine | DX: Z12.31 Encounter for screening mammogram for malignant neoplasm of breast (principal) | CPT/HCPCS: 77063; 77067 ==

== ENCOUNTER 2025-02-04 10:27 | Outpatient (REF) | payer MEDICAID, SELFPAY ==
--- NOTE | ~2025-02-04 | MM_ITS ---
EXAMINATION: MM DIAGNOSTIC DIGITAL BREAST TOMOSYNTHESIS, BILATERAL Bilateral Limited ultrasound. CLINICAL INFORMATION: Call back from screening for right focal asymmetry and left asymmetry. COMPARISON: Mammography: Comparison is made with relevant prior exams. TECHNIQUE: Digital breast mammography with tomosynthesis is performed in both the craniocaudal and mediolateral oblique views along with computer-aided detection (CAD). FINDINGS: The breasts are heterogeneously dense, which may obscure small masses (ACR BI-RADS breast composition Category c). Left: The previously seen asymmetry in the superior left breast on MLO view does not persist on additional imaging projections and likely represented overlapping breast tissue. There are no suspicious calcifications or other abnormal findings. Targeted color Doppler ultrasound scanning in the superior left breast from 10 2:00 demonstrates an incidental simple cyst at 12:00 7 cm from the nipple measuring 6 x 4 x 6 mm. Right: Focal seen asymmetry in the upper outer right breast partially effaces on additional imaging projections. No suspicious calcifications or other abnormal findings. No persistent distortion. Targeted color Doppler ultrasound scanning in the upper outer quadrant from 8-12 o'clock demonstrates normal fibronodular breast tissue. There is no sonographic abnormal findings. Results are provided to the patient at time of visit by the technologist. MM/MM tomosynthesis added view BI IMPRESSION: Left: Benign. Right: Focal asymmetry upper outer breast far posterior depth without sonographic correlate. Recommend 6 month follow-up for further evaluation of stability. ASSESSMENT: BI-RADS BI-RADS 3 - Probably benign finding(s) - 6 month follow-up suggested RECOMMENDATION: 6 Month F/U This patient's information was entered into a reminder system with a target due date for their next mammogram. Electronically signed by: Flores Alvarenga DO 02/04/2025 12:21 PM EDT
== END 2025-02-04 10:28 | disposition home or self-care (01) ==
LOC: HO.MAMMO 10:27
PROVIDERS: PCP Internal Medicine Geriatric Medicine; Visit Provider Internal Medicine Geriatric Medicine
DX: N64.89 Other specified disorders of breast (principal)
CPT/HCPCS: 76642; 77062; 77066

== ENCOUNTER → 2025-02-04 12:00 | Outpatient (BNV) | payer MEDICAID, SELFPAY | PROVIDERS: PCP Internal Medicine Geriatric Medicine; Visit Provider Internal Medicine | DX: N64.89 Other specified disorders of breast (principal) | CPT/HCPCS: 76642; 77061; 77066 ==

== ENCOUNTER 2025-02-24 06:01 | Outpatient (REF) | payer MEDICAID, SELFPAY ==
--- OUTSIDE RECORDS SUMMARY | 2025-02-24 06:04 | XMS_ITS | Encounter Summary ---
Author Organization [employer] Address [address] [facility] 7t [place] [address] Care Team Providers Care Router Tender Name Role Phone Name, Eusebio STARK Primary Care Provider [phone] Irma Martinez PharmD Unavailable [phone] Reason for Visit * Reason Comments Med Refill Encounter Details Date Type Department Care Team ([facility] Contact Info) Description 07/06/2023 Refill [facility] [address] [place], [place] [phone] Name, MD Eusebio [address] [place] [address] Other cardiomyopathy (CMS/HCC); Essential hypertension Social History [...] as of this encounter Plan of Treatment Not on file documented as of this encounter Visit Diagnoses Diagnosis Other cardiomyopathy (CMS/HCC) Essential hypertension Unspecified essential hypertension documented in this encounter Care Teams Router Tender Relationship Specialty Start Date End Date Name, MD Eusebio [address] [place] [address] PCP - General Family Medicine 09/29/15 Irma Martinez, Chris [address] [place] [address] Pharmacist Internal Medicine 11/04/24 02/11/25 documented as of this encounter
[2025-02-24 08:14] LABS: Parathyroid Hormone Intact 58.3 pg/mL (8.7-77.1)
[2025-02-24 08:26] LABS: Alanine Aminotransferase 27 U/L (0-31); Albumin Level 4.2 g/dL (3.5-5.0); Alkaline Phosphatase 106 U/L (39-117); Anion Gap 12 (12-20); Aspartate Amino Transferase 23 U/L (5-31); Bilirubin Total 0.3 mg/dL (0.0-1.0); Blood Urea Nitrogen 22 mg/dL (9-16); Calcium 10.1 mg/dL (8.4-10.2); Carbon Dioxide 29 mmol/L (22-29); Chloride 103 mmol/L (96-108); Estimated Glomerular Filt Rate > 60; Glucose Random 92 mg/dL (60-115); Potassium 3.4 mmol/L (3.3-5.1); Sodium 141 mmol/L (135-145); Total Protein 7.4 g/dL (6.5-8.0)
[2025-02-24 08:27] LABS: Vitamin D 25-OH Total 30.8 ng/mL (>30)
== END 2025-02-24 06:02 | disposition home or self-care (01) ==
LOC: HO.LAB 06:01
PROVIDERS: PCP Internal Medicine Geriatric Medicine; Visit Provider Internal Medicine Geriatric Medicine
DX: E83.52 Hypercalcemia (principal)
CPT/HCPCS: 36415; 80053; 82306; 83970

== ENCOUNTER 2025-03-29 10:24 | Outpatient (REF) | payer MEDICAID, SELFPAY ==
--- NOTE | ~2025-03-29 | XR_ITS ---
EXAMINATION: XR LUMBOSACRAL SPINE CLINICAL INFORMATION: LBP/siatica COMPARISON: 11/05/18 TECHNIQUE: 5 views of the lumbar spine, inclusive of bilateral oblique views, were obtained. FINDINGS: There is no scoliosis. There is a normal lordosis. No fracture, acute compression deformity, or suspicious bone lesion. Minimal ventral wedging of T11 and T12, chronic in appearance. No significant subluxations. Moderate degenerative disc changes L2-3, and L4-5. There is otherwise mild disc degeneration. There is multilevel facet degeneration most significant at L4-S1. There are no pars defects on the oblique projections. There are no soft tissue abnormalities identified. XR/XR lumbar spine 4V min IMPRESSION: 1. No acute bony abnormalities of the lumbar spine. 2. Mild to moderate lumbar spondylosis as discussed, mildly progressed from 2019. 3. Minimal ventral wedging of T11 and T12, chronic in appearance. Electronically signed by: Benito Rueda MD 03/29/2025 11:43 AM EDT
--- OUTSIDE RECORDS SUMMARY | 2025-03-29 10:20 | XMS_ITS | Encounter Summary ---
Author Organization [employer] Address [address] [facility] 7t [place] [address] Care Team Providers Care Director Of Clinical Services Name Role Phone Name, Eusebio STARK Primary Care Provider [phone] Reason for Referral * Consultation (Routine) - Pending Review Specialty Diagnoses / Procedures Referred By Hiro jimenes Referred To Contact Physical Therapy Diagnoses Osteoarthritis of spine with radiculopathy, lumbosacral region Ai Anthony MD [address] [place] [address] Phone: tel: fax: Referral ID Status Reason Start Date Expiration Date Visits Requested Visits Authorized [id number] Pending Review Specialty Services Required 03/29/2025 03/29/2026 1 1 Reason for Visit * Reason Comments Pain Encounter Details Date Type Department Care Team (Latest Contact Info) Description 03/29/2025 10:20 AM EDT Office Visit [facility] [address] [place] [address] [phone] Osteoarthritis of spine with radiculopathy, lumbosacral region (Primary Dx) Social History Tobacco Use Types Packs/Day Years Used Date Smoking Tobacco: Some Days Cigarettes Passive Smoke Exposure: Past Smokeless Tobacco: Never Tobacco Cessation:Ready to Q uit: Not Asked; Counseling Given: Not Answered Alcohol Use Standard Drinks/Week Comments Never 0 (1 standard drink = 0.6 oz pur e alcohol) Alcohol Answer Date Recorded Frequency of Alcohol Consumption Not on file 04/09/2024 Average Number of Drinks Not on file 024 Frequency of Binge Drinking Not on file 03/17 Score 0 04/09/2024 Depression Answer Date Recorded Patient Health Questionnaire-9 Score 0 01/27/2025 Patient Health Questionnaire-9 Score 0 01/27/2025 Last PHQ-9: Questionnaire Data Not on file 0 01/27/2025 Housing Stability Answer Date Recorded What is your housing situation today? I have bennie raman 01/27/[address] you li ve. Do you have problems with any of the following? None of the above 01/27/2025 Food Insecurity Answer Date Recorded Within the past 12 months, y ou worried that your food would run out before you got money to buy more: Often true 01/27/2025 Within the past 12 months,th e food you bought just didn't last and you didn't have enough money to get more: Often true Transportation Answer Date Recorded In the past 12 months, has l ack of transportation kept you from medical appts, meetings, work or from getting things needed for daily living? No 01/27/2025 Utilities Answer Date Recorded In the past 12 months, has t he electric, gas, oil or water company threatened to shut off services in your home? No 01/27/2025 Depression Answer Date Recorded Patient Health Questionnaire-2 Score 0 01/27/2025 Internet Access Answer Date Recorded Internet Access Q1 No 01/27/2025 Internet Access Q2 My internet/Wi-Fi ac cess is not consistent or reliable 01/27/2025 Comments Unknown Sex and Gender Information Value Date Recorded Sex Assigned at Female 07/16/2022 10:18 AM EDT Legal Sex Female 10:18 AM EDT Gender Identity Female 07/16/2022 10:18 AM EDT Sexual Orientation Don't know 07/16/2022 10 :18 AM EDT documented as of this encounter Last Filed Vital Signs Vital Sign Reading Time Taken Comments Blood Pressure 148/86 03/29/2025 9:20 AM EDT Pulse 100 03/29/2025 9:20 AM EDT Temperature 37.1 C (98.8 F) 03/29/2025 9:20 AM EDT Respiratory Rate 17 03/29/2025 9:20 AM EDT Oxygen Saturation - - Inhaled Oxygen Concentration - - Weight 147 kg (323 lb) 03/29/2025 9:20 AM EDT Height 165.1 cm (5' 5 ) 03/29/2025 9:20 AM EDT Body Mass Index 53.75 03/29/2025 9:20 AM EDT documented in this encounter Miscellaneous Notes * Assessment & Plan Note - Ai Anthony MD - 03/29/2025 10:21 AM EDT Associated Problem(s): Lumbosacral spondylosis Recommended heat to affected area and perform stretching exercises once daily at home. I will referto PT Discussed about coming to acupuncture clinic Tylenol 3 times daily + nightly + Flexeril nightly only, hold for sedation. Tramadol 25 to 50 mg twice daily as needed severe pain, hold for sedation. We discussed about interaction with clonazepam, including worsening somnolence and worrying about shortness of breath. She will call 911 if she develops difficulty breathing with tramadol. We discussed about using flaxseed powder daily to prevent further constipation. Advised regarding constipation as it could worsen low back pain. Advised to aim for daily BM, use MiraLAX or flaxseed powder or prunes daily Ordered x-rays documented in this encounter Plan of Treatment Scheduled Orders Name Type Priority Associated Diagnoses Orde r Schedule XR Lumbar Spine Complete 4+ Views Imaging Routine Osteoarthritis of spine with radiculopathy, lumbosacral region Ordered: 03/29/2025 Scheduled Referrals Name Type Priority Associated Diagnoses Orde r Schedule Referral to Physical Therapy Outpatient Referral Routine Osteoarthritis of spine with radiculopathy, lumbosacral region Expected: 03/29/2025 (Approximate), Expires: 03/29/2026 documented as of this encounter Visit Diagnoses Diagnosis Osteoarthritis of spine with radiculopathy, lumbosacral region- Primary documented in this encounter Additional Health Concerns Assessment Noted Time PHQ-9 Depression Total Score: 0 01/28/20 25 12:13 PM EDT documented as of this encounter Care Teams Director Of Clinical Services Relationship Specialty Start Date End Date Name, MD Eusebio [address] [place] [address] PCP - General Family Medicine 09/29/15 documented as of this encounter
--- OUTSIDE RECORDS SUMMARY | 2025-03-29 11:05 | XMS_ITS | Encounter Summary ---
Author Organization [facility] Address [address] [place] [address] Care Team Providers Care Poultry Farm Laborer Name Role Phone Karoline, Eusebio STARK Primary Care Provider Unavailabl Eamon Blackman MD Primary Care Provider Unavail able Rayray Jimenez MD Primary Care Provide r Unavailable NameEusebio MD Primary Care Provider Unavailabl e Reason for Visit * Reason Onset Date Comments Orders Call 06/17/2014 Encounter Details Date Type Department Care Team Description 06/17/2014 Telephone Adult [address] [address] Eusebio Ramey MD Orders Call Social History Tobacco Use Types Packs/Day Years Used Date Smoking Tobacco: Former Cigarettes 3 Q uit: 12/06/2013 Smokeless Tobacco: Never Alcohol Use Standard Drinks/Week Comments No 0 (1 standard drink = 0.6 oz pur e alcohol) Sex Assigned at Date Recorded Not on file documented as of this encounter Miscellaneous Notes * Telephone Encounter - Eboni Alonzo M.A. - 06/18/2014 10:01 AM EDT Please call pt And book nurse only for ppd plant * Telephone Encounter - Eusebio Ramey MD - 06/17/2014 10:55 AM EDT done * Telephone Encounter - Rebekah Saldana - 06/17/2014 9:09 AM EDT Patients needs a ppd for work. documented in this encounter Plan of Treatment Not on file documented as of this encounter Visit Diagnoses Diagnosis Screening examination for pulmonary tuberculosis- Primary documented in this encounter Care Teams Poultry Farm Laborer Relationship Specialty Start Date End Date Name, MD Eusebio PCP - General 09/07/10 09/27/15 Eamon Tan MD PCP - General Internal Medicine 09/28/15 10/03/15 Rayray Jimenez MD PCP - General Internal Medicine 10/04/15 Name, MD Eusebio PCP - General Internal Medicine 12/06/23 documented as of this encounter
== END 2025-03-29 10:25 | disposition home or self-care (01) ==
LOC: HO.HHCX 10:24
PROVIDERS: Visit Provider Internal Medicine
DX: M47.27 Other spondylosis with radiculopathy, lumbosacral region (principal); M54.40 Lumbago with sciatica, unspecified side
CPT/HCPCS: 72110

== ENCOUNTER → 2025-03-29 10:24 | Outpatient (BNV) | payer MEDICAID, SELFPAY | PROVIDERS: Visit Provider Radiology Diagnostic Radiology | DX: M51.369 Other intervertebral disc degeneration, lumbar region without mention of lumbar back pain or lower extremity pain (principal) | CPT/HCPCS: 72110 ==

== ENCOUNTER 2025-05-26 10:00 | Outpatient (RCR) | payer MEDICAID, SELFPAY ==
--- NOTE | 2025-05-07 13:49 | MHC.PT.EP ---
[facility] [place] Office [place] Office [place] Office [address] Moncho Ferris [address] [phone] F: [phone] F: [phone] F: [phone] F: [phone] Physical Therapy Plan of Care Date of Evaluation: 05/07/25 Date of Surgery: N/A Diagnosis: osteoarthritis of spine of radiculopathy (RL) Assessment: pt is a 55 y/o female presenting to physical therapy w/ referring diagnosis of osteoarthritis of spine of radiculopathy. Impairments include pain, decreased range of motion, decreased strength, impaired functional mobility, impaired postural awareness, and altered ambulation mechanics. pt is a good candidate for skilled PT due to age, potential remediation of impairments, typical disease/condition progression and prognosis, comorbidities, and motivation. pt would benefit from skilled PT intervention to provide a tailored strengthening and stretching exercise program, functional training, gait training, postural re-training, neuromuscular re-education, modalities as needed for pain, equipment safety demonstration. Frequency and Duration: The patient will be seen 2x/wk for 4 wks Short Term Goals: pt will be I w/ HEP to promote self-management of condition. pt will demo proper sitting posture w/ lumbar roll to promote neutral spine w/ seated ADLs. Product Development Manager Goals: pt will report a statistically significant improvement in self-reported outcome measure, Chan, to promote return to PLOF. pt will demo proper lifting mechanics to promote neutral spine w/ online education manager. Treatment Plan: Modalities to reduce pain, spasms and effusion. Manual therapy to restore motion and function. Therapeutic exercise to improve strength and flexibility. Neuromuscular re-education for posture and balance. Therapeutic activities to return to functional activities of daily living. Electronically signed by: Nan Dawson PT, DPT Please sign and return to therapist. Thank you for your referral.
== END 2025-07-19 13:31 | disposition home or self-care (01) ==
LOC: HO.PT 10:00
PROVIDERS: PCP Internal Medicine Geriatric Medicine; Visit Provider Internal Medicine
DX: M47.24 Other spondylosis with radiculopathy, thoracic region (principal)
CPT/HCPCS: 97012; 97110; 97162; 97530

== ENCOUNTER 2025-06-16 12:37 | Outpatient (AMB) | payer MEDICAID, SELFPAY ==
[2025-06-16 13:44] VITALS: BP 150/90; PULSE 66; O2SAT 96; BMI 52.9
--- NOTE | 2025-06-16 13:44 | A.OFFVIS_ITS ---
Vital Signs 06/16/25 13:44 Height 5 ft 5 in Weight 318 lb BMI 52.9 BP 150/90 H Blood Pressure Location Rt brachial Position Sitting Pulse 66 Pulse Source Pulse Oximeter Pulse Oximetry (%) 96 Oxygen Delivery Method Room Air Intake Visit Reasons: Epigastric f/u Intake Note: Est pt for mgmt of CIC + chronic abd pain. CC; Pt denies any GI sx or concerns at this time and confirms that she is taking the Rx as instructed and w/o complication. Elementary Instructional Coach Required: Yes Elementary Instructional Coach Services: Elementary Instructional Coach Present Elementary Instructional Coach Name: Juni (GI LM) + [facility] Information Interpreted: clinical only Accompanied by: Self / Same As Patient Allergies No Known Allergies Allergy (Verified 06/16/25 13:44) HPI HPI Epigastric f/u: Details: LAST VISIT Chronic idiopathic constipation IBS (irritable bowel syndrome) GERD (gastroesophageal reflux disease) Postprandial epigastric pain Plan Patient will start taking omeprazole daily. Avoid dietary triggers and late night snacking. Continue MiraLax in the morning and senna at bedtime. Increase fluid intake and activity to promote better bowel motility. Can take simethicone with food to stop the bloating. Patient will return in the office in 6 months, sooner on as needed basis. She is agreeable to this plan and verbalizes understanding of instructions. She was given the opportunity to ask questions and all questions answered. ? Thank you for allowing me to participate in her care New simethicone 125 mg PO QID PRN 90 tabs 3RF Gastrointestinal Spasms Or Cramping omeprazole 20 mg PO DAILY 90 caps 3RF Changed Changed From polyethylene glycol 3350 17 grams PO DAILY Changed To polyethylene glycol 3350 (Gavilax) 17 grams PO DAILY 510 grams 2RF Refilled sennosides (Natural Senna Laxative) 8.6 mg PO BEDTIME 30 tabs 0RF constipation TODAY'S VISIT Patient is here today for follow-up. Patient reports that she has been doing well since last visit. Patient reports that she has been taking omeprazole in the morning and no longer is experiencing acid reflux. Patient is trying to avoid dietary triggers. Patient denies dyspepsia, dysphagia or odynophagia. Denies melena diaphragm a patient we have we have stools. Patient reports that she is moving her bowels well without any issues, however occasionally she will take Senokot as needed. Patient is taking MiraLax daily. Uses simethicone as needed for bloating. Patient is on GLP 1 reports no adverse symptoms. Patient lost 40 lb since August of 2024 [facility] Medical History Incisional hernia Glaucoma Long QT interval Knee pain Cardiomyopathy CHF (congestive heart failure) [place] on CPAP Depression Heartburn Morbid obesity Dizziness Acid reflux Anxiety Panic attack HTN (hypertension) Hernia, umbilical Surgical History History of umbilical hernia repair (10/08/22) Hx of umbilical hernia repair Hx of colonoscopy History of hysterectomy H/O ventral hernia repair Social History Are you a primary summer child caregiver to a significant other at home: No Do you presently have visiting nurse or other home services: No Alcohol intake: never Patient Tobacco Use Status: Former Tobacco user Tobacco use type: Cigarette Review of Systems Const Denies weight gain and Denies weight loss ENT Reports no additional complaints, Denies dysphagia and Denies odynophagia Card Reports no additional complaints Resp Reports no additional complaints GI Denies abdominal pain, Denies belching, Denies melena, Denies bloating, Denies change in bowel habits, Denies constipation, Denies dysphagia, Denies excessive flatus, Denies dyspepsia, Denies heartburn, Denies diarrhea, Denies loose stools, Denies nausea, Denies odynophagia and Denies vomiting Reports no additional complaints Musc Reports no additional complaints Neuro Reports no additional complaints Psych Reports no additional complaints Endo Reports no additional complaints Physical Exam Vital Signs: Last Vital Signs Pulse 66 06/16/25 13:44 BP 150/90 H 06/16/25 13:44 Pulse Ox 96 06/16/25 13:44 Oxygen Delivery Method Room Air 06/16/25 13:44 BMI result Body Mass Index 52.9 Const General: healthy appearing and no acute distress Nutritional Appearance: obese Orientation/consciousness: patient oriented x3 Resp Effort & Inspection: normal respiratory effort, able to speak in complete sentences, no tracheal deviation and symmetric chest movement Auscultation: clear to auscultation bilaterally Cardio Rate: regular rate GI Inspection: Yes normal to inspection, No distended and Yes obesity Palpation (GI): Soft to palpation, not firm, nontender and No hepatosplenomegaly present Auscultation: normal bowel sounds General: Yes no CVA tenderness Back/Spine/Pelvis Back: no CVA tenderness Skin General skin exam: elasticity normal, turgor normal and dry skin Neuro General: patient oriented x3 Psych Appearance: grossly normal Mental Status: mental status grossly normal Assessment & Plan Assessment & Plan (1) Chronic idiopathic constipation: Code(s): K59.04 - Chronic idiopathic constipation (2) Irritable bowel syndrome: Code(s): K58.9 - Irritable bowel syndrome, unspecified Qualifiers: Irritable bowel syndrome type: without diarrhea Qualified Code(s): K58.9 - Irritable bowel syndrome, unspecified (3) Gastroesophageal reflux disease: Code(s): K21.9 - Gastro-esophageal reflux disease without esophagitis Qualifiers: Esophagitis presence: esophagitis presence not specified Qualified Code(s): K21.9 - Gastro-esophageal reflux disease without esophagitis (4) Postprandial epigastric pain: Code(s): R10.13 - Epigastric pain Plan Patient will continue current therapy with omeprazole. Continue avoiding dietary triggers. Continue taking senna as needed. Patient will follow-up in our office on as-needed basis. She is agreeable to current plan of care and verbalizes understanding of instructions. She was given the opportunity to ask questions and all questions answered. Thank you for allowing me to participate in her care Medications: Refilled omeprazole 20 mg PO DAILY 90 caps 3RF sennosides (senna) 8.6 mg PO BEDTIME 90 tabs 3RF for constipation simethicone 125 mg PO QID PRN 90 tabs 3RF Gastrointestinal Spasms Or Cramping Coding Level of Care Code Est Pt Level 3 (41642) Diagnoses Chronic idiopathic constipation K59.04 Irritable bowel syndrome without diarrhea K58.9 Irritable bowel syndrome type: without diarrhea Gastroesophageal reflux disease, unspecified whether esophagitis present K21.9 Esophagitis presence: esophagitis presence not specified Postprandial epigastric pain R10.13 Time Spent (min) 25 Comment 15 minutes spent with patient and additional 10 minutes spent reviewing her records
--- OUTSIDE RECORDS SUMMARY | 2025-06-16 13:57 | XMS_ITS | Encounter Summary ---
Author Organization [employer] Address [address] [place] [address] [address]t [place] [address] Care Team Providers Care Dairy And Food Laboratory Assistant Name Role Phone Name, Eusebio STARK Primary Care Provider [phone] Irma Martinez PharmD Unavailable [phone] Reason for Visit * Reason Comments Med Refill Encounter Details Date Type Department Care Team ([facility] Contact Info) Description 12/22/2022 Refill [facility]ICINE [address] [place] [address] Frances Hurtado FNP [address] [place] [address] Social History Tobacco Use Types Packs/Day Years [...] Upcoming Encounters Date Type Department Care Team ([facility] Contact Info) Description 08/03/2025 10:00 AM EST Office Visit [facility] [address] [place] [address] Name, MD Eusebio [address] [place] [address] documented as of this encounter Visit Diagnoses Not on filedocumented in this encounter Care Teams Dairy And Food Laboratory Assistant Relationship Specialty Start Date End Date Name, MD Eusebio [address] [place] [address] PCP - General Family Medicine 09/29/15 Irma Martinez, Chris [address] [place] [address] Pharmacist Internal Medicine 11/04/24 02/11/25 documented as of this encounter
--- OUTSIDE RECORDS SUMMARY | 2025-06-16 13:57 | XMS_ITS | Encounter Summary ---
Author Organization [employer] Address [address] [facility] 7t [place] [address] Care Team Providers Care Child Protective Investigator Name Role Phone Name, Eusebio STARK Primary Care Provider [phone] Irma Martinez PharmD Unavailable [phone] Reason for Visit * Reason Comments Med Refill Encounter Details Date Type Department Care Team ([facility] Contact Info) Description 07/06/2023 Refill [facility] [address] [place], [place] [phone] Name, MD Eusebio [address] [place] [address] Other cardiomyopathy (CMS/HCC); Essential hypertension Social History [...] Care Team (Late st Contact Info) Description 08/03/2025 10:00 AM EST Office Visit [facility] [address] [place] [phone] Name, MD Eusebio [address] [place] [id number] documented as of this encounter Visit Diagnoses Diagnosis Other cardiomyopathy (HCC) Essential hypertension Unspecified essential hypertension documented in this encounter Care Teams Child Protective Investigator Relationship Specialty Start Date End Date Name, MD Eusebio [address] [place] [id number] PCP - General Family Medicine 09/29/15 Irma Martinez PharmD [address] [place] [phone] Pharmacist Internal Medicine 11/04/24 02/11/25 documented as of this encounter
--- OUTSIDE RECORDS SUMMARY | 2025-06-16 13:57 | XMS_ITS | Encounter Summary ---
Author Organization [employer] Address [address] [facility] 7t [place] [address] Care Team Providers Care Bar Tacker Name Role Phone Name, Eusebio STARK Primary Care Provider [phone] Irma Martinez PharmD Unavailable [phone] Reason for Visit * Reason Onset Date Comments Appointment Request 06/03/2024 Encounter Details Date Type Department Care Team ([facility] Contact Info) Description 06/03/2024 Telephone [facility] [address] [place] [address] Name, MD Eusebio [address] [place] [address] Appointment Request Social History Tobacco Use Types [...] within a month from last visit however technical report writer does not see any notes regarding that documented in this encounter Plan of Treatment Upcoming Encounters Date Type Department Care Team (Late st Contact Info) Description 08/03/2025 10:00 AM EST Office Visit [facility] [address] [place] [address] NameEusebio MD [address] [place] [address] documented as of this encounter Visit Diagnoses Not on filedocumented in this encounter Additional Health Concerns Assessment Noted Time PHQ-9 Depression Total Score: 0 10/23/19 24 2:25 PM EST documented as of this encounter Care Teams Bar Tacker Relationship Specialty Start Date End Date NameEusebio MD [address] [place] [address] PCP - General Family Medicine 09/29/15 Irma Martinez, PamD [address] [place] [id number] Pharmacist Internal Medicine 11/04/24 02/11/25 documented as of this encounter
--- OUTSIDE RECORDS SUMMARY | 2025-06-16 13:57 | XMS_ITS | Clinical Summary ---
Author Organization [employer] Address [address] [facility] [address] [place] [address] Care Team Providers Care Hardness Tester Name Role Phone Name, Eusebio STARK Primary Care Provider [phone] Allergies No known active allergies Medications simethicone (Mylicon) 125 MG chewable tabletIndications :Dyspepsia TAKE 1 TABLET 4 TIMES A DAY AFTER MEALS AND AT BEDTIME NEEDED FOR GAS 90 tablet 1 Active sertraline (Zoloft) 100 MG tablet Take 2 tablets by mouth in the morning. Active Senna-Time 8.6 MG tablet Take 1 tablet by mouth at bedtime. Active GaviLAX 17 GM/SCOOP powder Take 17 g by mouth 1 (one) time each day. Mix with 8 oz of water before drinking. Active hydrALAZINE (Apresoline) 25 MG tablet Take 1 tablet by mouth with breakfast and with evening meal. Active clonazePAM (KlonoPIN) 0.5 MG tablet Take 1 tablet by mouth if needed each day. Active carvedilol (Coreg) 25 MG tablet Take 1 tablet by mouth with breakfast and with evening meal. Active meloxicam (Mobic) 7.5 MG tablet TAKE 1 TABLET BY MOUTH EVERY DAY 30 tablet Active Additional Information Patient not taking.Reported on 02/12/2025 omeprazole (PriLOSEC) [address] capsule TAKE 1 CAPSULE BY MOUTH EVERY DAY 30 MINUTES TO 1 HOUR BEFORE A MEAL 90 capsule 1 Active melatonin 5 MG tablet Take 1 tablet (5 mg) by mouth at bedtime. 30 tablet 11 025 2025 Active atorvastatin (Lipitor) 20 MG tabletIndications :Other cardiomyopathy (HCC) TAKE 1 TABLET BY MOUTH EVERY DAY 90 tablet 1 025 Active losartan-hydroCHL OROthiazide (Hyzaar) 100-25 MG tablet Take 1 tablet by mouth Once per day. 90 tablet 3 025 Active Tirzepatide-Weigh t Management (Zepbound) 15 MG/0.5ML solution auto-injector Inject 0.5 mL (15 mg) under the skin 1 (one) time per week. 6 mL 3 025 2025 Active nicotine (Nicoderm, Step 3) 7 MG/24HR patch Apply 1 patch, as directed, every 24 hours. May remove at bedtime if needed & replace the next morning. Rotate application site. 14 patch Active cyclobenzaprine (Flexeril) 10 MG tablet Take 1 tablet (10 mg) by mouth at bedtime for 10 days. 10 tablet 025 Active Ventolin HFA 108 (90 Base) MCG/ACT inhaler INHALE 2 PUFFS EVERY 6 HOURS IF NEEDED FOR WHEEZING. 18 g 2 025 Active Acetaminophen Extra Strength 500 MG tablet TAKE 1 TABLET (500 MG) BY MOUTH EVERY 6 (SIX) HOURS IF NEEDED FOR MILD PAIN. 120 tablet 025 Active Acetaminophen Extra Strength 500 MG tablet TAKE 1 TABLET (500 MG) BY MOUTH EVERY 6 (SIX) HOURS IF NEEDED FOR MILD PAIN. 120 tablet 025 2024 Discontinued Active Problems Problem Noted Date Diagnosed Date [...] or failure to resolve Lumbosacral spondylosis 12/05/2023 Assessment & Plan (03/29/2025 10:21 AM EDT): Recommended heat to affected area and perform stretching exercises once daily at home. I will refer to PT Discussed about coming to acupuncture clinic [...] flaxseed powder or prunes daily Ordered x-rays Muscle spasm of back 12/05/2023 Right hip [...] cardimyopathy EF 45% Has serial EKGs with [place] Obstructive sleep apnea of adult 10/10/2021 Uterine [...] lowering her dose of SSRI Morbid obesity (CMS/[facility]) 07/03/2012 Anxiety 04/14/2012 Insomnia 04/14/2012 Hypertension 04/14/2012 Depression 04/14/2012 Overview (09/28/2022): The patient has a prescribing psychiatric provider (Dr Jiang) Resolved Problems Problem Noted Date Diagnosed Date Resolved Date Ingrown nail of fourth toe of right foot 09/28/2022 12/05/2023 Left ventricular systolic dysfunction 12/06/2020 04/09/2023 Encounters Date Type Department Care Team Description 05/28/2025 Refill [facility] [address] [place] [id number] Eusebio Ramey MD 04/30/2025 Telephone [facility] [address] [place] [id number] Reymundo Thomas [place] oct recalls 04/30/2025 Telephone [facility] [address] [place] [address] Eusebio Ramey MD Prior Authorization 04/25/2025 Refill [facility] [address] [place] [address] Ai Anthony MD 04/03/2025 Refill [facility] [address] [place] [address] Janice Madden NP 04/01/2025 Telephone [facility] [address] [place] [address] Eusebio Ramey MD Medication Question (Pt walked in saying she was seen in walk in and provider prescribed tramadol. Pt wants to know if she's able to take it due to her taking heart medication. ) 04/01/2025 Results Follow-Up [facility] [address] [place] [address] Ai Anthony MD XR Lumbar Spine Complete 4+ Views 03/29/2025 10:20 AM EDT Office Visit [facility] [address] [place] [address] Ai Anthony MD Osteoarthritis of spine with radiculopathy, lumbosacral region (Primary Dx) 03/29/2025 Travel from Last 3 Months Immunizations Immunization Administration Dates Next Due Hep B, adult [...] your housing situation today? I have bennie sing 01/27/[address] you li [...] 17 03/29/2025 9:20 AM EDT Oxygen Saturation 94% 01/27/2025 11:35 AM EDT Inhaled Oxygen Concentration - - Weight 147 kg (323 lb) 03/29/2025 9:20 AM EDT Height 165.1 cm (5' 5 ) 03/29/2025 9:20 AM EDT Body Mass Index 53.75 03/29/2025 9:20 AM EDT Plan of Treatment Upcoming Encounters Date Type Department Care Team (Late st Contact Info) Description 08/03/2025 10:00 AM EST Office Visit [facility] [address] [facility] [place] [address] Name, MD Eusebio [address] [place] [address] Health Maintenance Due Date Last Done Comments CT Colonography 1971 Dental Prophylaxis 1971 FIT DNA/Cologuard 1971 FIT 1971 FOBT 1971 Sigmoidoscopy 1971 Alcohol/Substance Use Screening 1983 Dental Oral Exam 11/05/2016 05/04/2016 Dental X-Ray: Bitewings 05/05/2017 05/04/2016 Dental X-Ray: Full Mouth 05/05/2019 05/04/2016 Cervical Cancer Screening 01/09/2024 HPV/Cotest 01/09/2024 01/08/2019 Pap Smear 01/09/2024 01/08/2019 Influenza Vaccine (#1) 2025 , 05/25/2022, 08/07/2021, Additional history exists Depression Screening 01/27/2026 01/27/2025, 01/28/20 Disability Screening 01/27/2026 01/27/2025 SDOH Screening 01/27/2026 01/27/2025 Mammogram 02/04/2026 02/04/2025, 05/05/2025, 12/31/2023, Additional history exists Tobacco Screening 03/29/2026 03/29/2025 DTaP/Tdap/Td Vaccines (3 - Td or Tdap) [...] Completed 11/04/2024, 03/2022, 08/07/2021, Additional history exists Hepatitis B Vaccines [...] patient's age to complete this topic Meningococcal B Vaccine Aged Out No l onger eligible based on patient's age to complete [...] Procedure Name Priority Date/Time Associated Diagnosis Comments XR LUMBAR SPINE COMPLETE 4+ VIEWS Routine 03/29/2025 9:46 AM EDT Osteoarthritis of spine with radiculopathy, lumbosacral region BI US BREAST LIMITED BILATERAL Routine 02/04/2025 11:57 AM EDT LIPID PANEL, STANDARD Routine 01/08/2024 8:51 AM EDT High cholesterol ZZZ HISTORICAL HEPATITIS C AB W/REFL TO [...] Recently Relevant to Health Maintenance Results * XR Lumbar Spine Complete 4+ Views (03/29/2025 9:46 AM EDT) Anatomical Region Laterality Modality Spine, L-spine Radiographic Sigrid ging 03/29/2025 9:46 AM EDT Narrative 03/29/2025 11:46 AM EDT [address] [address] XRay Report Signed Patient: Yamilex Powers MR#: [id number] 80 : 1970 Acct:[id number] Age/Sex: 55 / F ADM Date: 03/29/25 Loc: HO.HHCX Attending Dr: Ai Anthony MD Ordering Physician: Ai Anthony MD Date of Service: 03/29/25 Procedure(s): XR lumbar spine 4V min Accession Number(s): [id number] cc: Ai Anthony MD EXAMINATION: XR LUMBOSACRAL SPINE CLINICAL INFORMATION: LBP/siatica COMPARISON: 11/05/18 TECHNIQUE: 5 views of the lumbar spine, inclusive of bilateral oblique views, were obtained. FINDINGS: There is no scoliosis. There is a normal lordosis. No fracture, acute compression deformity, or suspicious bone lesion. Minimal ventral wedging of T11 and T12, chronic in appearance. No significant subluxations. Moderate degenerative disc changes L2-3, and L4-5. There is otherwise mild disc degeneration. There is multilevel facet degeneration most significant at L4-S1. There are no pars defects on the oblique projections. There are no soft tissue abnormalities identified. XR/XR lumbar spine 4V min IMPRESSION: 1. No acute bony abnormalities of the lumbar spine. 2. Mild to moderate lumbar spondylosis as discussed, mildly progressed from 2019. 3. Minimal ventral wedging of T11 and T12, chronic in appearance. Electronically signed by: Benito Rueda MD 03/29/2025 11:43 AM EDT Dictated By: Benito Rueda MD Signed By: <Electronically signed by Benito Rueda MD in OV> 03/29/25 1143 DD/ 0946 TD/TT: 03/29/25 1000 [employer] Plan[employer] Machine Operator: Procedure Note Donotuseinterpreter, Image - 03/29/[address] [address] XRay Report Signed Patient: Omero Powers#: [id number] 80 : 1970Acct:[id number] Age/Sex: 55 / FADM Date: 03/29/25 Loc: HO.HHCX Attending Dr: Ai Anthony MD Ordering Physician: Ai Anthony MD Date of Service: 03/29/25 Procedure(s): XR lumbar spine 4V min Accession Number(s): [id number] cc: Ai Anthony MD EXAMINATION: XR LUMBOSACRAL SPINE CLINICAL INFORMATION: LBP/siatica COMPARISON: 11/05/18 TECHNIQUE: 5 views of the lumbar spine, inclusive of bilateral oblique views, were obtained. FINDINGS: There is no scoliosis. There is a normal lordosis. No fracture, acute compression deformity, or suspicious bone lesion. Minimal ventral wedging of T11 and T12, chronic in appearance. No significant subluxations. Moderate degenerative disc changes L2-3, and L4-5. There is otherwise mild disc degeneration. There is multilevel facet degeneration most significant at L4-S1. There are no pars defects on the oblique projections. There are no soft tissue abnormalities identified. XR/XR lumbar spine 4V min IMPRESSION: 1. No acute bony abnormalities of the lumbar spine. 2. Mild to moderate lumbar spondylosis as discussed, mildly progressed from 2019. 3. Minimal ventral wedging of T11 and T12, chronic in appearance. Electronically signed by: Benito Rueda MD 03/29/2025 11:43 AM EDT Dictated By: Benito Rueda MD Signed By: <Electronically signed by Benito Rueda MD in OV> 03/29/25 1143 DD/ 0946 TD/TT: 03/29/25 1000 [employer]ane Planter Machine Operator: Ai Anthony MD IMG XR PROCEDURES Final Result * BI US Breast Limited Bilateral (02/04/2025 11:57 AM EDT) Anatomical Region Laterality Modality Breast Bilateral Ultrasound 02/04/2025 11:5 7 AM EDT Narrative 02/04/2025 12:24 PM EDT [facility] [place] [address] Ultrasound Report Signed Patient: Yamilex Powers MR#: [id number] 80 : 1970 Acct:[id number] Age/Sex: 54 / F ADM Date: 02/04/25 Loc: HO.MAMMO Attending Dr: Eusebio Ramey MD Ordering Physician: Eusebio Ramey MD Date of Service: 02/04/25 Procedure(s): US breast BI limited mamm only Accession Number(s): [id number] cc: Eusebio Ramey MD EXAMINATION: MM DIAGNOSTIC DIGITAL BREAST TOMOSYNTHESIS, BILATERAL Bilateral Limited ultrasound. CLINICAL INFORMATION: Call back from screening for right focal asymmetry and left asymmetry. COMPARISON: Mammography: Comparison is made with relevant prior exams. TECHNIQUE: Digital breast mammography with tomosynthesis is performed in both the craniocaudal and mediolateral oblique views along with computer-aided detection (CAD). FINDINGS: The breasts are heterogeneously dense, which may obscure small masses (ACR BI-RADS breast composition Category c). Left: The previously seen asymmetry in the superior left breast on MLO view does not persist on additional imaging projections and likely represented overlapping breast tissue. There are no suspicious calcifications or other abnormal findings. Targeted color Doppler ultrasound scanning in the superior left breast from 10 2:00 demonstrates an incidental simple cyst at 12:00 7 cm from the nipple measuring 6 x 4 x 6 mm. Right: Focal seen asymmetry in the upper outer right breast partially effaces on additional imaging projections. No suspicious calcifications or other abnormal findings. No persistent distortion. Targeted color Doppler ultrasound scanning in the upper outer quadrant from 8-12 o'clock demonstrates normal fibronodular breast tissue. There is no sonographic abnormal findings. Results are provided to the patient at time of visit by the technologist. US/US breast BI limited mamm only IMPRESSION: Left: Benign. Right: Focal asymmetry upper outer breast far posterior depth without sonographic correlate. Recommend 6 month follow-up for further evaluation of stability. ASSESSMENT: BI-RADS BI-RADS 3 - Probably benign finding(s) - 6 month follow-up suggested RECOMMENDATION: 6 Month F/U This patient's information was entered into a reminder system with a target due date for their next mammogram. Electronically signed by: Flores Alvarenga DO 02/04/2025 12:21 PM EDT Dictated By: Flores Alvarenga DO Signed By: <Electronically signed by Flores Alvarenga DO in OV> 02/04/25 1221 DD/ 1157 TD/TT: 02/04/25 1203 Sugar Cane Planter Machine Operator: Procedure Note Donotuseinterpreter, Image - 02/04/2025 [facility] [address] [place], [place] [address] Ultrasound Report Signed Patient: Omero Powers#: [id number] 80 : 1970Acct:[id number] Age/Sex: 54 / FADM Date: 02/04/25 Loc: HO.MAMMO Attending Dr: Eusebio Ramey MD Ordering Physician: Eusebio Ramey MD Date of Service: 02/04/25 Procedure(s): US breast BI limited mamm only Accession Number(s): [id number] cc: Eusebio Ramey MD EXAMINATION: MM DIAGNOSTIC DIGITAL BREAST TOMOSYNTHESIS, BILATERAL Bilateral Limited ultrasound. CLINICAL INFORMATION: Call back from screening for right focal asymmetry and left asymmetry. COMPARISON: Mammography: Comparison is made with relevant prior exams. TECHNIQUE: Digital breast mammography with tomosynthesis is performed in both the craniocaudal and mediolateral oblique views along with computer-aided detection (CAD). FINDINGS: The breasts are heterogeneously dense, which may obscure small masses (ACR BI-RADS breast composition Category c). Left: The previously seen asymmetry in the superior left breast on MLO view does not persist on additional imaging projections and likely represented overlapping breast tissue. There are no suspicious calcifications or other abnormal findings. Targeted color Doppler ultrasound scanning in the superior left breast from 10 2:00 demonstrates an incidental simple cyst at 12:00 7 cm from the nipple measuring 6 x 4 x 6 mm. Right: Focal seen asymmetry in the upper outer right breast partially effaces on additional imaging projections. No suspicious calcifications or other abnormal findings. No persistent distortion. Targeted color Doppler ultrasound scanning in the upper outer quadrant from 8-12 o'clock demonstrates normal fibronodular breast tissue. There is no sonographic abnormal findings. Results are provided to the patient at time of visit by the technologist. US/US breast BI limited mamm only IMPRESSION: Left: Benign. Right: Focal asymmetry upper outer breast far posterior depth without sonographic correlate. Recommend 6 month follow-up for further evaluation of stability. ASSESSMENT: BI-RADS BI-RADS 3 - Probably benign finding(s) - 6 month follow-up suggested RECOMMENDATION: 6 Month F/U This patient's information was entered into a reminder system with a target due date for their next mammogram. Electronically signed by: Flores Alvarenga DO 02/04/2025 12:21 PM EDT RP Workstation: [employer] Dictated By: Flores Alvarenga DO Signed By: <Electronically signed by Flores Alvarenga DO in OV> 02/04/25 1221 DD/ 1157 TD/TT: 02/04/25 1203 Sugar Cane Planter Machine Operator: us Eusebio Name IMMichelle US PROCEDURES Final Result * (ABNORMAL) Lipid Panel, Standard (01/08/2024 8:51 AM EDT) Triglycerides 165(H) <150 mg/dL [facility] Comment:Desirable Triglyceri de: less than 150 mg/dLBorderline High Triglyceride 150-199 mg/dLHigh Triglyceride: 200-499 mg/dLVery High Triglyceride: greater than or equal to 5OO mg/dL Cholesterol 171 <200 mg/dL [facility] Comment:Desirable Cholestero l: less than 200 mg/dLBorderline High Cholesterol: 200-239 mg/dLHigh Cholesterol: greater than 239 mg/dL LDL Cholesterol Calculated 98 <100 mg/dL [facility] Comment:Desirable LDL: less than 100 mg/dLNear Optimal/Above Optimal LDL: 110- 129 mg/dLBorderline High LDL: 130-159 mg/dLHigh LDL: 160-189 mg/dLVery High LDL: greater than or equal to 190 mg/dL HDL Cholesterol 40(L) >40 mg/dL [facility] Comment:Desirable HDL: great er than 40 mg/dL Note: This HDL assay may give artificially low results in patients with liver disease. Blood Venous blood specimen / Unknown 01/08/2024 8:51 AM EDT 01/08/2024 8:51 AM EDT Eusebio Ramey MD LAB BLOOD ORDERABLES Final Resul t [facility] [address] [place] [address] [phone] * HEPATITIS C AB W/REFL TO HCV RNA, QN, PCR (06/11/2022 3:25 PM EDT) HEPATITIS C ANTIBODY NON-REACT SHAHNAZ NON-REACT SHAHNAZ [facility] INDEX 0.10 <1.00 [facility] Comment: HCV antibody was non-reactive. There is no laboratory evidence of HCV infection. In most cases, no further action is required. However, if recent HCV exposure is suspected, a test for HCV RNA (test code 30366) is suggested. For additional information please refer to http://education.[employer]/faq/IOP45r4 (This link is being provided for informational/ educational purposes only.) 06/11/2022 3:25 PM EDT Ammy Thomas SHOVEL LOGGER HISTORICAL/NON ORDERABLE L ABS Final Result [facility] [address] * HIV 1/2 ANTIGEN/ANTIBODY,FOURTH GENERATION W/RFL (06/11/2022 3:25 PM EDT) HIV-1/2 ANTIGEN AND ANTIBODIES, 4TH GENERATION W/ REFLEX NON-REACT SHAHNAZ NON-REACT SHAHNAZ [facility] Comment: HIV-1 antigen and HIV-1/HIV-2 antibodies were not detected. There is no laboratory evidence of HIV infection. PLEASE NOTE: This information has been disclosed to you from records whose confidentiality may be protected by state law. If your state requires such protection, then the state law prohibits you from making any further disclosure of the information without the specific written consent of the person to whom it pertains, or as otherwise permitted by law. A general authorization for the release of medical or other information is NOT sufficient for this purpose. For additional information please refer to http://[employer]/faq/XLS291 (This link is being provided for informational/ educational purposes only.) The performance of this assay has not been clinically validated in patients less than 2 years old. 06/11/2022 3:25 PM EDT Ammy Viviana Thomas [facility] LAB BLOOD ORDERABLES Final Result [facility] [address] * Hm Colonoscopy (01/05/2022 1:12 PM EDT) Colonoscopy Normal Normal Narrative Nallely Mendoza - 01/05/2022 1:12 PM EDT Recommended 10 year follow up Historical Provider HEALTH MAINTENANCE Final Result * HPV mRNA E6/E7 (01/08/2019 10:58 AM EDT) HPV mRNA E6/E7 Not Detected NOT DETECTED [facility] Comment: This test was performed using the APTIMA(R) HPV Assay ([employer] This assay detects E6/E7 viral messenger RNA (mRNA) from 14 high-risk HPV types (16,18,31,33,35,39,45,51, 52,56,58,59,66,68). For additional information please refer to: http://[employer]/faq/UGX642p7 (This link is being provided for informational/ educational purposes only.) The analytical performance characteristics of this assay have been determined by [employer] [place], [place]. The modifications have not been cleared or approved by the FDA. This assay has been validated pursuant to the CLIA regulations and is used for clinical purposes. Test Performed by [facility], [employer] [facility], [address] [place] [address] Anthony Quinn M.D., Ph.D., Director of Laboratories , [facility] [id number] Please note: Effective 05/28/2016, HPV testing will be performed using [email or web address]'s APTIMA test which targets mRNA. Detecting mRNA instead of DNA, as in older methods, offers significant improvements in specificity. 01/08/2019 10:5 8 AM EDT us Historical Provider HISTORICAL/NON ORDERABLE LABS Final Result [facility] Critical access hospital [address] * Hm Pap Smear (01/08/2019 12:00 AM EDT) us Historical Provider HEALTH MAINTENANCE Final Result from Last 3 Months or Most Recently Relevant to Health Maintenance Insurance [facility] C3 DENTAL-[facility] MEDICAID STAND ADULT Care Teams Hardness Tester Relationship Specialty Start Date End Date Name, MD Eusebio [address] [place] [address] [place] [address] PCP - General Family Medicine 09/29/15
--- OUTSIDE RECORDS SUMMARY | 2025-06-16 13:57 | XMS_ITS | Encounter Summary ---
Author Organization [employer] Address [address] [place] [address] [address]t h Floor [place] [phone] Care Team Providers Care Station Detective Name Role Phone Name, Eusebio STARK Primary Care Provider [phone] Irma Martinez PharmD Unavailable [phone] Encounter Details Date Type Department Care Team (Late st Contact Info) Description 08/31/2022 Orders Only [facility] [address] [place] [address] Yamila Eller LPN Social History Tobacco Use [...] Encounters Date Type Department Care Team (Late Contact Info) Description 08/03/2025 10:00 AM EST Office Visit [facility] [address] [place] [address] Name, MD Eusebio [address] [place] [address] documented as of this encounter Procedures Procedure Name Priority Date/Time Associated Diagnosis Comments CREATININE, SERUM Routine 10/08/2022 11: 02 AM EST documented in this encounter Results * Creatinine, Serum (10/08/2022 11:02 AM EST) Creatinine, Serum 0.84 0.5 - 1.4 mg/dL [facility] Creatinine Clr Calc Pharmacy 121.0 [facility] Comment:Provided height and weight: 165.1 cm,156.489 kg.eGFR (calculated from the MDRD study equation) and eCrCl(calculated from the Cockcroft-Gault equation) are based ondifferent parameters and may not yield comparable results.If eCrCl result is absurd, please check patient'sheight/weight. Estimated Glomerular Filt Rate >60 [facility] Comment:NOTE: For -Am erican individuals, multiply the result by 1.210.Chronic Kidney Disease: Estimated GFR < 60 mL/min/1.14a7Shsdgl Kidney Disease: Estimated GFR < 15 mL/min/1.73m2 10/08/2022 11:0 2 AM EST 10/08/2022 11:04 AM EST us [facility] External Provider LAB BLO OD ORDERABLES Final Result Performing Organization Address City/State/[facility] Co de Phone Number [facility] [address] [place] [address] [phone] documented in this encounter Visit Diagnoses Not on filedocumented in this encounter Care Teams Station Detective Relationship Specialty Start Date End Date Name, MD Eusebio [address] [place] [address] PCP - General Family Medicine 09/29/15 Irma Martinez PharmD [address] [place] [phone] Pharmacist Internal Medicine 11/04/24 02/11/25 documented as of this encounter
--- OUTSIDE RECORDS SUMMARY | 2025-06-16 13:57 | XMS_ITS | Encounter Summary ---
Author Organization [employer] Address [address] [facility] 7t [place] [address] Care Team Providers Care Display Trimmer Name Role Phone Name, Eusebio STARK Primary Care Provider [phone] Irma Martinez PharmD Unavailable [phone] Reason for Visit * Reason Comments Med Refill Encounter Details Date Type Department Care Team ([facility] Contact Info) Description 03/18/2024 Refill [facility] [address] [place], [place] [phone] Name, MD Eusebio [address] [place] [address] Morbid obesity (CMS/HCC) Social History Tobacco Use [...] Description 08/03/2025 10:00 AM EST Office Visit [facility] [address] [place] [phone] Name, MD Eusebio [address] [place] [address] documented as of this encounter Visit Diagnoses Diagnosis Morbid obesity (CMS/HCC) (HCC) Morbid obesity documented in this encounter Additional Health Concerns Assessment Noted Time PHQ-9 Depression Total Score: 0 10/23/19 24 2:25 PM EST documented as of this encounter Care Teams Display Trimmer Relationship Specialty Start Date End Date Name, MD Eusebio [address] [place] [address] PCP - General Family Medicine 09/29/15 Irma Martinez PharmD [address] [place] [address] Pharmacist Internal Medicine 11/04/24 02/11/25 documented as of this encounter
--- OUTSIDE RECORDS SUMMARY | 2025-06-16 13:57 | XMS_ITS | Encounter Summary ---
Author Organization [employer] Address [address] [place] [address] 7t [place] [address] Care Team Providers Care Starter Cup Powder Mixer Name Role Phone Name, Eusebio STARK Primary Care Provider [phone] Irma Martinez PharmD Unavailable [phone] Encounter Details Date Type Department Care Team ([facility] Contact Info) Description 02/07/2023 Abstract [facility] [address] [place] [address] [phone] NameEusebio MD [address] [place] [address] [phone] Social History Tobacco Use Types Packs/Day Years [...] Upcoming Encounters Date Type Department Care Team ([facility] Contact Info) Description 08/03/2025 10:00 AM EST Office Visit [facility] [address] [place] [address] [phone] Eusebio Ramey MD [address] [place] [address] [phone] documented as of this encounter Procedures Procedure Name Priority Date/Time Associated Diagnosis Comments HM COLONOSCOPY Routine 01/05/2022 1:12 PM EDT HM PAP/HPV Routine 01/08/2019 12:00 AM EDT documented in this encounter Results * Hm Colonoscopy (01/05/2022 1:12 PM EDT) Colonoscopy Normal Normal Narrative Nallely Mendoza - 01/05/2022 1:12 PM EDT Recommended 10 year follow up us Historical Provider HEALTH MAINTENANCE Final Result * Hm Pap Smear (01/08/2019 12:00 AM EDT) us Historical Provider HEALTH MAINTENANCE Final Result documented in this encounter Visit Diagnoses Not on filedocumented in this encounter Care Teams Starter Cup Powder Mixer Relationship Specialty Start Date End Date Name, MD Eusebio [address] [place] [address] PCP - General Family Medicine 09/29/15 Irma Martinez, Chris [address] [place] [address] Pharmacist Internal Medicine 11/04/24 02/11/25 documented as of this encounter
--- OUTSIDE RECORDS SUMMARY | 2025-06-16 13:57 | XMS_ITS | Encounter Summary ---
Author Organization [employer] Address [address] [facility] 7t [place] [address] Care Team Providers Care Podiatric Aide Name Role Phone Name, Eusebio STARK Primary Care Provider [phone] Irma Martinez PharmD Unavailable [phone] Reason for Visit * Reason Comments Med Refill Encounter Details Date Type Department Care Team ([facility] Contact Info) Description 10/29/2023 Refill [facility] [address] [place], [place] [phone] Name, MD Eusebio [address] [place] [address] Other cardiomyopathy (CMS/HCC) Social History Tobacco Use [...] Description 08/03/2025 10:00 AM EST Office Visit [facility] [address] [place] [address] Name, MD Eusebio [address] [place] [address] documented as of this encounter Visit Diagnoses Diagnosis Other cardiomyopathy (HCC) documented in this encounter Additional Health Concerns Assessment Noted Time PHQ-9 Depression Total Score: 0 10/23/19 24 2:25 PM EST documented as of this encounter Care Teams Podiatric Aide Relationship Specialty Start Date End Date Name, MD Eusebio [address] [place] [address] PCP - General Family Medicine 09/29/15 Irma Martinez PharmD [address] [place] [phone] Pharmacist Internal Medicine 11/04/24 02/11/25 documented as of this encounter
== END 2025-06-16 14:22 | disposition home or self-care (01) ==
LOC: HO.HGI 12:37
PROVIDERS: PCP Internal Medicine Geriatric Medicine; Visit Provider Nurse Practitioner Family
DX: K59.04 Chronic idiopathic constipation (principal); K58.9 Irritable bowel syndrome, unspecified; K21.9 Gastro-esophageal reflux disease without esophagitis; R10.13 Epigastric pain
CPT/HCPCS: 99213

== ENCOUNTER → 2025-06-16 12:37 | Outpatient (BNVA) | payer MEDICAID, SELFPAY | PROVIDERS: PCP Internal Medicine Geriatric Medicine; Visit Provider Nurse Practitioner Family | DX: R10.13 Epigastric pain (principal); K59.04 Chronic idiopathic constipation; K58.9 Irritable bowel syndrome, unspecified; K21.9 Gastro-esophageal reflux disease without esophagitis | CPT/HCPCS: 99212 ==

== ENCOUNTER 2025-08-10 09:01 | Outpatient (REF) | payer MEDICAID, SELFPAY ==
--- NOTE | ~2025-08-10 | MM_ITS ---
EXAMINATION(S): MM DIAGNOSTIC DIGITAL BREAST TOMOSYNTHESIS, RIGHT CLINICAL INFORMATION: This is a 6-month follow-up for right breast focal asymmetry in the upper outer quadrant, without persistent distortion on the additional views. No suspicious sonographic correlate. COMPARISON: Bilateral diagnostic mammogram on February 04, 2025 and bilateral screening mammogram on January 22, 2025. TECHNIQUE: Digital breast tomosynthesis is performed in both the mediolateral oblique and craniocaudal views along with computer-aided detection (CAD). Synthesized 2D images are generated from the tomosynthesis. FINDINGS: BREAST COMPOSITION: There are scattered areas of fibroglandular density. RIGHT BREAST: Previously described focal asymmetry in the upper outer quadrant, towards 9 o'clock position posterior depth is not significantly changed from January 2025. No new masses, suspicious calcifications or other abnormalities are seen. MM/MM tomosynthesis diagnostic RT IMPRESSION: RIGHT BREAST: Focal asymmetry in the upper outer quadrant/9:00 posterior depth, unchanged from January 2025. Probably benign. Short-term follow-up is recommended as bilateral diagnostic mammogram expected in January 2026. ASSESSMENT: BI-RADS: Category 3: Probably benign RECOMMENDATION: 6 Month F/U Results were provided to the patient at time of visit by the technologist. This patient's information was entered into a reminder system with a target due date for their next mammogram. Electronically signed by: Oli Gustafson MD 08/10/2025 10:43 AM [facility]
--- OUTSIDE RECORDS SUMMARY | 2025-08-10 09:41 | XMS_ITS | Encounter Summary ---
Author Organization [employer] Address [address] 7[address] [place] [address] Care Team Providers Care Tile Molder Hand Name Role Phone Name, Eusebio STARK Primary Care Provider [phone] Irma Martinez PharmD Unavailable [phone] Reason for Visit * Reason Onset Date Comments Appointment Request 06/03/2024 Encounter Details Date Type Department Care Team ([facility] Contact Info) Description 06/03/2024 Telephone [facility] MEDICINE [address] [place], [place] [phone] Name, MD Eusebio [address] [place] [address] Appointment Request Social History Tobacco Use Types [...] within a month from last visit however policy writer sales does not see any notes regarding that documented in this encounter Plan of Treatment Upcoming Encounters Date Type Department Care Team (Late st Contact Info) Description 11/04/2025 11:15 AM EST Office Visit [facility] MEDICINE [address] [place] [address] Name, MD Eusebio [address] [place] [address] documented as of this encounter Visit Diagnoses Not on filedocumented in this encounter Additional Health Concerns Assessment Noted Time PHQ-9 Depression Total Score: 0 10/23/19 24 2:25 PM EST documented as of this encounter Care Teams Tile Molder Hand Relationship Specialty Start Date End Date Name, MD Eusebio [address] [place] [address] PCP - General Family Medicine 09/29/15 Irma Martinez PharmD [address] [place] [address] Pharmacist Internal Medicine 11/04/24 02/11/25 documented as of this encounter
--- OUTSIDE RECORDS SUMMARY | 2025-08-10 09:41 | XMS_ITS | Encounter Summary ---
Author Organization [employer] Address [address] [facility] 7t [place] [address] Care Team Providers Care Biscuitware Brusher Name Role Phone Name, Eusebio STARK Primary Care Provider [phone] Irma Martinez PharmD Unavailable [phone] Reason for Visit * Reason Comments Med Refill Encounter Details Date Type Department Care Team ([facility] st Contact Info) Description 03/18/2024 Refill [facility] MED[facility]INE [address] [place], [place] [phone] Name, MD Eusebio [address] [place], [place] [phone] Morbid obesity (CMS/HCC) Social History Tobacco Use [...] Description 11/04/2025 11:15 AM EST Office Visit [facility] MEDICINE [address] [place] [address] Name, MD Eusebio [address] [place] [phone] documented as of this encounter Visit Diagnoses Diagnosis Morbid obesity (CMS/HCC) (HCC) Morbid obesity documented in this encounter Additional Health Concerns Assessment Noted Time PHQ-9 Depression Total Score: 0 10/23/19 24 2:25 PM EST documented as of this encounter Care Teams Biscuitware Brusher Relationship Specialty Start Date End Date NameEusebio MD [address] [place] [address] PCP - General Family Medicine 09/29/15 Irma Martinez PharmD [address] [place] [address] Pharmacist Internal Medicine 11/04/24 02/11/25 documented as of this encounter
--- OUTSIDE RECORDS SUMMARY | 2025-08-10 09:41 | XMS_ITS | Encounter Summary ---
Author Organization [facility] [facility] Address [address] [place] [address] 7 [place] [address] Care Team Providers Care Appeals Analyst Name Role Phone Name, Eusebio STARK Primary Care Provider [phone] Irma Martinez PharmD Unavailable [phone] Encounter Details Date Type Department Care Team (Late Contact Info) Description 08/31/2022 Orders Only [facility] [address] [place] [phone] Yamila Eller LPN Social History Tobacco Use [...] Department Care Team (Late Contact Info) Description 11/04/2025 11:15 AM EST Office Visit [facility] MED[facility] [address] [place] [address] [phone] Name, MD Eusebio [address] [place] [phone] documented as of this encounter Procedures Procedure Name Priority Date/Time Associated Diagnosis Comments CREATININE, SERUM Routine 10/08/2022 11: 02 AM EST documented in this encounter Results * Creatinine, Serum (10/08/2022 11:02 AM EST) Creatinine, Serum 0.84 0.5 - 1.4 mg/dL [facility] Creatinine Clr Calc Pharmacy 121.0 [facility] Comment:Provided height and weight: 165.1 cm,156.489 kg.eGFR (calculated from the MDRD study equation) and eCrCl(calculated from the Cockcroft-Gault equation) are based ondifferent parameters and may not yield comparable results.If eCrCl result is absurd, please check patient'sheight/weight. Estimated Glomerular Filt Rate >60 [facility] Comment:NOTE: For -Am erican individuals, multiply the result by 1.210.Chronic Kidney Disease: Estimated GFR < 60 mL/min/1.20j8Iqnmac Kidney Disease: Estimated GFR < 15 mL/min/1.73m2 10/08/2022 11:0 2 AM EST 10/08/2022 11:04 AM EST us [facility] External Provider LAB BLO OD ORDERABLES Final Result [facility] [address] [place] [address] [phone] documented in this encounter Visit Diagnoses Not on filedocumented in this encounter Care Teams Appeals Analyst Relationship Specialty Start Date End Date Name, MD Eusebio [address] [place] [address] PCP - General Family Medicine 09/29/15 Irma Martinez PharmD [address] [place] [address] Pharmacist Internal Medicine 11/04/24 02/11/25 documented as of this encounter
--- OUTSIDE RECORDS SUMMARY | 2025-08-10 09:41 | XMS_ITS | Clinical Summary ---
Author Organization [employer] Address [address] [place] [address] 7t [place] [address] Care Team Providers Care Glass Furnace Operator Name Role Phone Name, Eusebio STARK Primary Care Provider [phone] Allergies No known active allergies Medications simethicone [...] tablet by mouth if needed each day. 022 Active carvedilol (Coreg) 25 MG tablet Take 1 tablet by mouth with breakfast and with evening meal. Active meloxicam (Mobic) 7.5 MG tablet TAKE 1 TABLET BY MOUTH EVERY DAY 30 tablet Active omeprazole (PriLOSEC) [address] capsule TAKE 1 CAPSULE BY MOUTH EVERY DAY 30 MINUTES TO 1 HOUR BEFORE A MEAL 90 capsule 1 10/08/2 024 Active melatonin 5 MG tablet Take 1 tablet (5 mg) by mouth at bedtime. 30 tablet 11 025 2025 Active losartan-hydroCHL OROthiazide (Hyzaar) 100-25 MG tablet Take 1 tablet by mouth Once per day. 90 tablet 3 Active Tirzepatide-Weigh t Management (Zepbound) 15 MG/0.5ML solution auto-injector Inject 0.5 mL (15 mg) under the skin 1 (one) time per week. 6 mL 3 5 10:42 AM EST 025 2025 Active nicotine (Nicoderm, Step 3) 7 MG/24HR patch Apply 1 patch, as directed, every 24 hours. May remove at bedtime if needed & replace the next morning. Rotate application site. 14 patch Active cyclobenzaprine (Flexeril) 10 MG tablet Take 1 tablet (10 mg) by mouth at bedtime for 10 days. 10 tablet Active atorvastatin (Lipitor) 20 MG tabletIndications :Other cardiomyopathy (HCC) TAKE 1 TABLET BY MOUTH EVERY DAY 90 tablet 1 025 Active Ventolin HFA 108 (90 Base) [...] cardimyopathy EF 45% Has serial EKGs with [place] Obstructive sleep apnea of adult 10/10/2021 Uterine [...] lowering her dose of SSRI Morbid obesity ([facility]/HCC) 07/03/2012 Anxiety 04/14/2012 Insomnia 04/14/2012 Hypertension 04/14/2012 Depression 04/14/2012 Overview (09/28/2022): The patient has a prescribing psychiatric provider (Dr Jiang) Resolved Problems Problem Noted Date Diagnosed Date Resolved Date Ingrown nail of fourth toe of right foot 09/28/2022 12/05/2023 Left ventricular systolic dysfunction 12/06/2020 04/09/2023 Encounters Date Type Department Care Team Description 08/04/2025 Refill [facility] [address] [place] [address] [phone] Name, MD Eusebio 08/03/2025 10:00 AM EST Office Visit [facility] [address] [place] [address] [phone] Name, MD Eusebio Morbid obesity ([facility]) ([facility]) (Primary Dx); Encounter for immunization 08/03/2025 Travel 06/30/2025 Refill [facility] [address] [place] [address] 8[address]23 Name, MD Eusebio 06/27/2025 Refill [facility] [address] [place] [address] 39157 Name, MD Eusebio Other cardiomyopathy ([facility]) 05/28/2025 Refill [facility] [address] [place] [address] [phone] Name, MD Eusebio from Last 3 Months Immunizations Immunization Administration Dates Next Due Hep B, adult 01/13/2025,11/04/2024,12/18/2023 Influenza injectable quadriv alent IIV4 with preservative 07/13/2019,06/10/2018,06/29/2016 Influenza injectable quadriv alent preservative free 05/25/2022,08/07/2021,06/06/2020 Influenza, IIV3, injectable 09/01/2015,1 ,07/22/2013,2011 Influenza, seasonal, injecta ble, preservative free 08/03/2025,11/04/2024 PPD Test 09/01/2014 Pfizer Covid-19 Vaccine 12+ [...] is not consistent or reliable 01/27/2025 Comments No Sex and Gender Information Value Date Recorded Sex Assigned at Female 07/16/2022 10:18 AM EDT Legal Sex Female 10:18 AM EDT Gender Identity Female 07/16/2022 10:18 AM EDT Sexual Orientation Don't know 07/16/2022 10 :18 AM EDT Last Filed Vital Signs Vital Sign Reading Time Taken Comments Blood Pressure 132/62 08/03/2025 10:06 AM EST Pulse 82 08/03/2025 10:06 AM EST Temperature 35.7 C (96.2 F) 08/03/2025 10:06 AM EST Respiratory Rate 18 08/03/2025 10:06 AM EST Oxygen Saturation 94% 08/03/2025 10:06 AM EST Inhaled Oxygen Concentration - - Weight 144 kg (318 lb 3.2 oz) 08/03/2025 10:06 A M EST Height 165.1 cm (5' 5 ) 08/03/2025 10:06 AM EST Body Mass Index 52.95 08/03/2025 10:06 AM EST Plan of Treatment Upcoming Encounters Date Type Department Care Team (Late st Contact Info) Description 11/04/2025 11:15 AM EST Office Visit [facility] [address] [place] [phone] Name, MD Eusebio [address] [place] [address] Health Maintenance Due Date Last Done Comments CT Colonography 1971 Dental Prophylaxis 1971 FIT DNA/Cologuard 1971 FIT 1971 FOBT 1971 Sigmoidoscopy 1971 Dental Oral Exam 11/05/2016 05/04/2016 Dental X-Ray: Bitewings 05/05/2017 05/04/2016 RSV Patients and Patients Aged 60 years or older (1 - Risk 50-74 years 1-dose series) 2021 COVID-19 Vaccine ( season) 2025 11/04/2024, 02/20/2022, 08/07/2021, Additional history exists Depression Screening 01/27/2026 01/27/2025, 01/28/20 Disability Screening 01/27/2026 01/27/2025 SDOH Screening 01/27/2026 01/27/2025 Mammogram 02/04/2026 02/04/2025, 01/15, 02/04/2025, Additional history exists Alcohol/Substance Use Screening 08/03/2026 08/03/2025 Tobacco Screening 08/03/2026 08/03/2025 Dental X-Ray: Full Mouth 01/15/2028 01/13/2025, 04/16 DTaP/Tdap/Td Vaccines (3 - Td or Tdap) 05/05/2028 05/05/2018, 05/06/2012 Lipid Panel 01/07/2029 01/08/2024, 08/14/2021 Colonoscopy 01/11/2032 01/10/2022, 01/05/2022 Colorectal Cancer Screening 01/11/2032 HPV/Cotest Discontinued 01/08/2019 Pap Smear Discontinued 01/08/2019 HIV Screening Completed 06/11/2022 Hepatitis C Screening Completed 06/11/2022 Zoster Vaccines Completed 08/15/2022, 06/11/2022 Pneumococcal Vaccine: 50+ Years Completed 12/05/2023 Hepatitis B Vaccines Completed 01/13/2025, 11/04/2024, 12/18/2023 Influenza Vaccine Completed 08/03/2025, , 05/25/2022, Additional history exists HIB Vaccines Aged Out No longer eligi [...] Procedure Name Priority Date/Time Associated Diagnosis Comments BI US BREAST LIMITED BILATERAL Routine 02/04/2025 [...] Recently Relevant to Health Maintenance Results * BI US Breast Limited Bilateral (02/04/2025 11:57 AM EDT) Anatomical Region Laterality Modality Breast Bilateral Ultrasound 02/04/2025 11:5 7 AM EDT Narrative 02/04/2025 12:24 PM EDT [place] [facility] [address] [place], [place] [address] Ultrasound Report Signed Patient: Yamilex Powers MR#: [id number] [birth year] : 1970 Acct:[id number] Age/Sex: 54 / F ADM Date: 02/04/25 Loc: HO.MAMMO Attending Dr: Eusebio Ramey MD Ordering Physician: Name,Eusebio STARK Date of Service: 02/04/25 Procedure(s): US breast BI limited mamm only Accession Number(s): [id number] cc: Name,Eusebio STARK EXAMINATION: MM DIAGNOSTIC DIGITAL BREAST TOMOSYNTHESIS, BILATERAL [...] 02/04/25 1221 DD/ 1157 TD/TT: 02/04/25 1203 Abrasive Mixer Helper: Procedure Note Donotuseinterpreter, Image - 02/04/2025 [facility] [address] [place], [place] [address] Ultrasound Report Signed Patient: Omero Powers#: [id number] [birth year] : 1970Acct:[id number] Age/Sex: 54 / FADM Date: 02/04/25 Loc: HO.MAMMO Attending Dr: Eusebio Ramey MD Ordering Physician: Name,Eusebio STARK Date of Service: 02/04/25 Procedure(s): US breast BI limited mamm only Accession Number(s): [id number] cc: Name,Eusebio STARK EXAMINATION: MM DIAGNOSTIC DIGITAL BREAST TOMOSYNTHESIS, BILATERAL [...] Alvarenga DO 02/04/2025 12:21 PM EDT RP Dictated By: Flores Alvarenga DO Signed By: <Electronically signed by Flores Alvarenga DO in OV> 02/04/25 1221 DD/ 1157 TD/TT: 02/04/25 1203 Abrasive Mixer Helper: us Kaplan Name IMG US PROCEDURES Final Result * (ABNORMAL) Lipid Panel, Standard (01/08/2024 8:51 AM EDT) Triglycerides 165(H) <150 mg/dL [facility] Comment:Desirable Triglyceri de: less than 150 mg/dLBorderline High Triglyceride 150-199 mg/dLHigh Triglyceride: 200-499 mg/dLVery High Triglyceride: greater than or equal to 5OO mg/dL Cholesterol 171 <200 mg/dL [facility] Comment:Desirable Cholestero l: less than 200 mg/dLBorderline High Cholesterol: 200-239 mg/dLHigh Cholesterol: greater than 239 mg/dL LDL Cholesterol Calculated 98 <100 mg/dL [facility] Comment:Desirable LDL: less than 100 mg/dLNear Optimal/Above Optimal LDL: 110- 129 mg/dLBorderline High LDL: 130-159 mg/dLHigh LDL: 160-189 mg/dLVery High LDL: greater than or equal to 190 mg/dL HDL Cholesterol 40(L) >40 mg/dL [facility] Comment:Desirable HDL: great er than 40 mg/dL Note: This HDL assay may give artificially low results in patients with liver disease. Blood Venous blood specimen / Unknown 01/08/2024 8:51 AM EDT 01/08/2024 8:51 AM EDT us Eusebio Ramey MD LAB BLOOD ORDERABLES Final Resul t [facility] [address] [place] [phone] * HEPATITIS C AB W/REFL TO HCV RNA, QN, PCR (06/11/2022 3:25 PM EDT) HEPATITIS C ANTIBODY NON-REACT SHAHNAZ NON-REACT SHAHNAZ [facility] INDEX 0.10 <1.00 [facility] Comment: HCV antibody was non-reactive. There is no laboratory evidence of HCV infection. In most cases, no further action is required. However, if recent HCV exposure is suspected, a test for HCV RNA (test code 65603) is suggested. For additional information please refer to http://[employer].Eat Club/faq/WTC71l3 (This link is being provided for informational/ educational purposes only.) 06/11/2022 3:25 PM EDT us Ammy Thomas CHEMICAL EDUCATOR HISTORICAL/NON ORDERABLE L ABS Final Result [facility] [address] * HIV 1/2 ANTIGEN/ANTIBODY,FOURTH GENERATION W/RFL (06/11/2022 3:25 PM EDT) HIV-1/2 ANTIGEN AND ANTIBODIES, 4TH GENERATION W/ REFLEX NON-REACT SHAHNAZ NON-REACT SHAHNAZ [facility] Comment: HIV-1 antigen and HIV-1/HIV-2 [...] purpose. For additional information please refer to http://education.Eat Club/faq/VCW491 (This link is being provided for informational/ educational purposes only.) The performance of this assay has not been clinically validated in patients less than 2 years old. 06/11/2022 3:25 PM EDT Ammy Thomas CHEMICAL EDUCATOR LAB BLOOD ORDERABLES Final Result [facility] [address] [place] [address], * Hm Colonoscopy (01/05/2022 1:12 PM EDT) Colonoscopy Normal Normal Narrative Nallely Mendoza - 01/05/2022 1:12 PM EDT Recommended 10 year follow up Historical Provider HEALTH MAINTENANCE Final Result * HPV mRNA E6/E7 (01/08/2019 10:58 AM EDT) HPV mRNA E6/E7 Not Detected NOT DETECTED [facility] Comment: This test was performed using the APTIMA(R) HPV Assay ([employer] This assay detects E6/E7 viral messenger RNA (mRNA) from 14 high-risk HPV types (16,18,31,33,35,39,45,51, 52,56,58,59,66,68). For additional information please refer to: http://education.Eat Club/faq/XFR737m6 (This link is being provided for informational/ educational purposes only.) The analytical performance characteristics of this assay have been determined by [employer] [place], [place]. The modifications have not been cleared or approved by the FDA. This assay has been validated pursuant to the CLIA regulations and is used for clinical purposes. Test Performed by [facility], [facility], [address] [place] [address] Anthony Quinn M.D., Ph.D., Director of Laboratories , CLIA [id number] Please note: Effective 05/28/2016, HPV testing will be performed using [employer] APTIMA test which targets mRNA. Detecting mRNA instead of DNA, as in older methods, offers significant improvements in specificity. 01/08/2019 10:5 8 AM EDT Historical Provider HISTORICAL/NON ORDERABLE LABS Final Result [facility] [address] [place] [id number], * Hm Pap Smear (01/08/2019 12:00 AM EDT) us Historical Provider MD HEALTH MAINTENANCE Final Result from Last 3 Months or Most Recently Relevant to Health Maintenance Insurance [facility] C3 Care Teams Glass Furnace Operator Relationship Specialty Start Date End Date Name, MD Eusebio [address] [place] [address] PCP - General Family Medicine 09/29/15
--- OUTSIDE RECORDS SUMMARY | 2025-08-10 09:41 | XMS_ITS | Encounter Summary ---
Author Organization [employer] Address [address] [facility] [address]t [place] [address] Care Team Providers Care Appetizer Packer Name Role Phone Name, Eusebio STARK Primary Care Provider [phone] Irma Martinez PharmD Unavailable [phone] Reason for Visit * Reason Comments Med Refill Encounter Details Date Type Department Care Team ([facility] st Contact Info) Description 10/29/2023 Refill [facility] [address] [place], [place] [phone] Name, MD Eusebio [address] [place], [place] [phone] Other cardiomyopathy (CMS/HCC) Social History Tobacco Use [...] Description 11/04/2025 11:15 AM EST Office Visit [facility] [address] [place] [address] Name, MD Eusebio [address] [place] [address] documented as of this encounter Visit Diagnoses Diagnosis Other cardiomyopathy (HCC) documented in this encounter Additional Health Concerns Assessment Noted Time PHQ-9 Depression Total Score: 0 10/23/19 24 2:25 PM EST documented as of this encounter Care Teams Appetizer Packer Relationship Specialty Start Date End Date Name, MD Eusebio [address] [place] [address] PCP - General Family Medicine 09/29/15 Irma Martinez PharmD [address] [place] [phone] Pharmacist Internal Medicine 11/04/24 02/11/25 documented as of this encounter
--- OUTSIDE RECORDS SUMMARY | 2025-08-10 09:41 | XMS_ITS | Encounter Summary ---
Author Organization [employer] Address [address] [facility] [facility] [address] 7[address] [place] [address] Care Team Providers Care Caustics Loader Name Role Phone Name, Eusebio STARK Primary Care Provider [phone] Irma Martinez PharmD Unavailable [phone] Reason for Visit * Reason Comments Med Refill Encounter Details Date Type Department Care Team ([facility] st Contact Info) Description 07/06/2023 Refill [facility] [address] [place], [place] [phone] Name, MD Eusebio [address] [place], [place] [phone] Other cardiomyopathy (CMS/HCC); Essential hypertension Social History [...] Description 11/04/2025 11:15 AM EST Office Visit [facility] [address] [place] [address] 24810 Name, MD Eusebio [address] [place] [address] documented as of this encounter Visit Diagnoses Diagnosis Other cardiomyopathy (HCC) Essential hypertension Unspecified essential hypertension documented in this encounter Care Teams Caustics Loader Relationship Specialty Start Date End Date Name, MD Eusebio [address] [place] [phone] PCP - General Family Medicine 09/29/15 Irma Martinez PharmD [address] [place] [phone] Pharmacist Internal Medicine 11/04/24 02/11/25 documented as of this encounter
--- OUTSIDE RECORDS SUMMARY | 2025-08-10 09:41 | XMS_ITS | Encounter Summary ---
Author Organization [employer] Address [address] [place] [address] 7t [place] [address] Care Team Providers Care Pricing Strategist Name Role Phone Name, Eusebio STARK Primary Care Provider [phone] Irma Martinez PharmD Unavailable [phone] Reason for Visit * Reason Comments Med Refill Encounter Details Date Type Department Care Team ([facility] Contact Info) Description 12/22/2022 Refill [facility] [address] [place] [address] Frances Hurtado, CONE EXAMINER [address] [place] [address] Social History Tobacco Use Types Packs/Day Years [...] Upcoming Encounters Date Type Department Care Team ([facility] Contact Info) Description 11/04/2025 11:15 AM EST Office Visit [facility] [address] [place] [address] Name, MD Eusebio [address] [place] [phone] documented as of this encounter Visit Diagnoses Not on filedocumented in this encounter Care Teams Pricing Strategist Relationship Specialty Start Date End Date Name, MD Eusebio [address] [place] [phone] PCP - General Family Medicine 09/29/15 Irma Martinez PharmD [address] [place] [phone] Pharmacist Internal Medicine 11/04/24 02/11/25 documented as of this encounter
--- OUTSIDE RECORDS SUMMARY | 2025-08-10 09:41 | XMS_ITS | Encounter Summary ---
Author Organization [employer] Address [address] [place] [address] [address]t [place] [address] Care Team Providers Care Customer Advocacy Manager Name Role Phone Name, Eusebio STARK Primary Care Provider Irma Martinez PharmD Unavailable [phone] Encounter Details Date Type Department Care Team (Late st Contact Info) Description 02/07/2023 Abstract [facility] [address] [place] [address] Eusebio Ramey MD [address] [place] [address] Social History Tobacco Use Types Packs/Day Years [...] Description 11/04/2025 11:15 AM EST Office Visit [facility] [address] [place] [address] [phone] Eusebio Ramey MD [address] [place] [phone] documented as of this encounter Procedures Procedure [...] * Pap Smear (01/08/2019 12:00 AM EDT) us Historical Provider HEALTH MAINTENANCE Final Result documented in this encounter Visit Diagnoses Not on filedocumented in this encounter Care Teams Customer Advocacy Manager Relationship Specialty Start Date End Date Name, MD Eusebio [address] [place] [address] PCP - General Family Medicine 09/29/15 Irma Martinez PharmD [address] [place] [address] Pharmacist Internal Medicine 11/04/24 02/11/25 documented as of this encounter
== END 2025-08-10 09:02 | disposition home or self-care (01) ==
LOC: HO.MAMMO 09:01
PROVIDERS: Visit Provider Internal Medicine Geriatric Medicine
DX: N64.89 Other specified disorders of breast (principal)
CPT/HCPCS: 77065

== ENCOUNTER → 2025-08-10 09:30 | Outpatient (BNV) | payer MEDICAID, SELFPAY | PROVIDERS: Visit Provider Radiology Body Imaging | DX: R92.8 Other abnormal and inconclusive findings on diagnostic imaging of breast (principal) | CPT/HCPCS: 77061; 77065 ==